=== PATIENT | male | born 1940 | race Caucasian/White ===

== ENCOUNTER 2018-12-19 19:08 | Inpatient (IN) | payer MEDICARE ==
[2018-12-19] MEDS ORDERED: Sodium Chloride 0.9% 1000 ML 1,000 ML IV STA (19:50)
[2018-12-19] MEDS ORDERED: Sodium Chloride 0.9% 1000 ML 1,000 ML ONE ×2 (19:53→21:03)
--- NOTE | 2018-12-19 19:54 | ERPHSYRPT ---
- History of Present Illness Time Seen by Provider: 12/19/18 19:47 Source: patient Exam Limitations: no limitations Patient Subjective Stated Complaint: pt states he has had malaria since the early 70's and has a flare up aboput twice a year. states he has been chilling and vomiting all day yesterday and today. Triage Nursing Assessment: pt alert and oriented, answers questions approp. pt ambulate from wheelchair to stretecher with assist of 1. respirations nonlabored with lungs cta. skin warm and dry at this time. Physician History: 78-year-old white male who states he has a history of malaria in the 70s and has intermittent flareups, patient arrives with complaint of chilling vomiting symptoms since 3 days he states he aches all over feels that he has a fever at home. Past medical history includes arrhythmia, high blood pressure, prostate problems , malaria in 1972 Past surgical history includes cholecystectomy Timing/Duration: day(s) Severity: moderate (33 days) Modifying Factors: Improves With: nothing Associated Symptoms: nausea, vomiting, chills, fever, malaise, weakness, No abdominal pain, No shortness of breath, No heartburn, No diaphoresis, No cough, No chest pain, No headaches, No loss of appetite, No rash, No syncope, No seizure Allergies/Adverse Reactions: NKA Allergy (Verified 12/19/18 19:27) Home Medications: Blood Presure Med 12/19/18 [History] Hx Tetanus, Diphtheria Vaccination/Date Given: No Hx Influenza Vaccination/Date Given: No Hx Pneumococcal Vaccination/Date Given: No Immunizations Up to Date: No - Review of Systems Constitutional: Fever, Chills, Malaise, Weakness, No Fatigue, No Lethargy, No Night Sweats, No Weight Loss Eyes: No Symptoms Ears, Nose, & Throat: No Symptoms Respiratory: No Cough, No Dyspnea Cardiac: No Chest Pain, No Edema, No Syncope Abdominal/Gastrointestinal: Nausea, Vomiting, No Abdominal Pain, No Diarrhea, No Constipation, No Hematemesis, No Hematochezia, No Melena, No Dysphagia, No Appetite Changes Genitourinary Symptoms: No Dysuria Musculoskeletal: Myalgias, No Back Pain, No Neck Pain Skin: No Rash Neurological: No Dizziness, No Focal Weakness, No Sensory Changes Psychological: No Symptoms Endocrine: No Symptoms All Other Systems: Reviewed and Negative - Past Medical History Pertinent Past Medical History: Yes Neurological History: No Pertinent History ENT History: No Pertinent History Cardiac History: Arrhythmia, Hypertension Respiratory History: No Pertinent History Endocrine Medical History: No Pertinent History Musculoskeletal History: No Pertinent History GI Medical History: No Pertinent History History: No Pertinent History Psycho-Social History: No Pertinent History Male Reproductive Disorders: Prostate Problems Other Medical History: Pt states he had malaria in 1972, hx of a fib- no longer on blood thinner - Past Surgical History Past Surgical History: Yes Gastrointestinal: Cholecystectomy Other Surgical History: 3 surgeries for gallbladder removal - Social History Smoking Status: Never smoker Exposure to second hand smoke: No Drug Use: none Patient Lives Alone: No - Nursing Vital Signs Nursing Vital Signs: Initial Vital Signs Temperature 98.7 F 12/19/18 19:09 Pulse Rate 78 12/19/18 19:09 Respiratory Rate 18 12/19/18 19:09 Blood Pressure 197/109 12/19/18 19:09 O2 Sat by Pulse Oximetry 96 12/19/18 19:09 Pain Scale Pain Intensity 5 - Physical Exam General Appearance: mild distress, alert Eye Exam: PERRL/EOMI, eyes nml inspection Ears, Nose, Throat Exam: normal ENT inspection, TMs normal, pharynx normal, moist mucous membranes Neck Exam: normal inspection, non-tender, supple, full range of motion Respiratory Exam: normal breath sounds, lungs clear, No respiratory distress Cardiovascular Exam: regular rate/rhythm, normal heart sounds, normal peripheral pulses, capillary refill <2 sec Gastrointestinal/Abdomen Exam: soft, normal bowel sounds, No tenderness, No mass Back Exam: normal inspection, normal range of motion, No CVA tenderness, No vertebral tenderness Extremity Exam: normal inspection, normal range of motion, pelvis stable Neurologic Exam: alert, oriented x 3, cooperative, 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, normal mood/affect, nml cerebellar function, nml station & gait, sensation nml, No motor deficits Skin Exam: normal color, warm, dry, No rash Lymphatic Exam: No adenopathy SpO2 Interpretation: normal (96%) SpO2: 96 - Course Nursing assessment & vital signs reviewed: Yes EKG Interpreted by Me: RATE (77 bpm), A-fib, NORMAL AXIS, Other (EKG: Atrial fibrillation, 77 beats per minute, normal axis,, no acute ST or T wave changes, compared to April 26, 2016) - Radiology Exams Right Chest X-ray Interpretation: Interpreted by me (right lower lobe infiltrate) Ordered Tests: Active Orders 24 hr Category Date Time Status EKG-ER Only STAT Care 12/19/18 19:50 Active IV Insertion STAT Care 12/19/18 19:50 Active CHEST 1 VIEW (PORTABLE) Stat Exams 12/19/18 19:51 Taken AMYLASE Stat Lab 12/19/18 20:00 Completed BLOOD CULTURE Stat Lab 12/19/18 20:10 Received CBC W DIFF Stat Lab 12/19/18 20:00 Completed CMP Stat Lab 12/19/18 20:00 Completed CULTURE,URINE Stat Lab 12/19/18 21:07 Received LIPASE Stat Lab 12/19/18 20:00 Completed Lactic Acid Stat Lab 12/19/18 20:20 Completed TROPONIN Q3H Lab 12/19/18 20:00 Completed TROPONIN Q3H Lab 12/19/18 23:00 Ordered TROPONIN Q3H Lab 12/20/18 02:00 Ordered TROPONIN Q3H Lab 12/20/18 05:00 Ordered TROPONIN Q3H Lab 12/20/18 08:00 Ordered UA W/RFX UR CULTURE Stat Lab 12/19/18 21:07 Completed Medication Summary Generic Name Dose Route Start Last Admin Trade Name Freq PRN Reason Stop Dose Admin Sodium Chloride 1,000 mls @ 100 mls/hr 12/19/18 21:15 12/19/18 21:08 Sodium Chloride 0.9% 1000 Ml IV 01/18/19 21:14 100 mls/hr .Q10H JOEY Administration Ceftriaxone Sodium/Dextrose 1 g in 50 mls @ 100 mls/hr 12/19/18 22:17 Rocephin 1 Gm-D5w 50 Ml Bag IV 12/19/18 22:46 STAT STA Discontinued Medications Generic Name Dose Route Start Last Admin Trade Name Freq PRN Reason Stop Dose Admin Sodium Chloride 1,000 mls @ 999 mls/hr 12/19/18 19:50 12/19/18 21:06 Sodium Chloride 0.9% 1000 Ml IV 12/19/18 20:50 Infused .Q1H1M STA Infusion Sodium Chloride Confirm 12/19/18 19:53 Sodium Chloride 0.9% 1000 Ml Administered 12/19/18 19:54 Dose 1,000 mls @ ud .ROUTE .STK-MED ONE Ceftriaxone Sodium/Dextrose Confirm 12/19/18 22:39 Rocephin 1 Gm-D5w 50 Ml Bag Administered 12/19/18 22:40 Dose 1 g in 50 mls @ ud IV .STK-MED ONE Ondansetron HCl 4 mg 12/19/18 20:01 12/19/18 20:03 Zofran 4 Mg/2 Ml Vial IV 12/19/18 20:02 4 mg STAT ONE Administration Ondansetron HCl Confirm 12/19/18 20:00 Zofran 4 Mg/2 Ml Vial Administered 12/19/18 20:01 Dose 4 mg .ROUTE .STK-MED ONE Lab/Rad Data: Laboratory Result Diagrams 12/19/18 20:00 12/19/18 20:00 Laboratory Results 12/19/18 12/19/18 12/19/18 Range/Units 21:07 20:20 20:00 WBC (4.0-10.5) K/mm3 RBC (4.1-5.6) M/mm3 Hgb (12.5-18.0) gm/dl Hct (42-50) % MCV (78-100) fl MCH (26-32) pg MCHC (32-36) g/dl RDW (11.5-14.0) % Plt Count (150-450) K/mm3 MPV (6-9.5) fl Gran % (36.0-66.0) % Eos # (Auto) (0-0.5) Absolute Lymphs (auto) (1.0-4.6) Absolute Monos (auto) (0.0-1.3) Lymphocytes % (24.0-44.0) % Monocytes % (0.0-12.0) % Eosinophils % (0.00-5.0) % Basophils % (0.0-0.4) % Absolute Granulocytes (1.4-6.9) Basophils # (0-0.4) Sodium (137-145) mmol/L Potassium (3.5-5.1) mmol/L Chloride (98-107) mmol/L Carbon Dioxide (22-30) mmol/L Anion Gap (5-15) MEQ/L BUN (9-20) mg/dL Creatinine (0.66-1.25) mg/dL Estimated GFR ML/MIN Glucose (74-106) mg/dL Lactic Acid 1.6 (0.4-2.0) Calcium (8.4-10.2) mg/dL Total Bilirubin (0.2-1.3) mg/dL AST (17-59) U/L ALT (0-50) U/L Alkaline Phosphatase (38-126) U/L Troponin I 0.013 (0.000-0.034) ng/mL Serum Total Protein (6.3-8.2) g/dL Albumin (3.5-5.0) g/dL Amylase (30-110) U/L Lipase (23-300) U/L Urine Color RED (YELLOW) Urine Appearance CLOUDY (CLEAR) Urine pH 6.0 (5-6) Ur Specific [place] 1.019 (1.005-1.025) Urine Protein 100 (Negative) Urine Ketones NEGATIVE (NEGATIVE) Urine Blood LARGE (0-5) Surendra/ul Urine Nitrite NEGATIVE (NEGATIVE) Urine Bilirubin NEGATIVE (NEGATIVE) Urine Urobilinogen NEGATIVE (0-1) mg/dL Ur Leukocyte Esterase NEGATIVE (NEGATIVE) Urine WBC (Auto) 0-2 (0-5) /HPF Urine RBC (Auto) >101 (0-2) /HPF U Epithel Cells (Auto) NONE (FEW) /HPF Urine Bacteria (Auto) NONE SEEN (NEGATIVE) /HPF Urine Culture Reflexed YES (NO) Urine Glucose 50 (NEGATIVE) mg/dL 12/19/18 12/19/18 Range/Units 20:00 20:00 WBC 19.6 H (4.0-10.5) K/mm3 RBC 5.56 (4.1-5.6) M/mm3 Hgb 18.0 (12.5-18.0) gm/dl Hct 51.7 H (42-50) % MCV 93.0 (78-100) fl MCH 32.4 H (26-32) pg MCHC 34.8 (32-36) g/dl RDW 14.4 H (11.5-14.0) % Plt Count 258 (150-450) K/mm3 MPV 9.8 H (6-9.5) fl Gran % 83.5 H (36.0-66.0) % Eos # (Auto) 0.01 (0-0.5) Absolute Lymphs (auto) 1.54 (1.0-4.6) Absolute Monos (auto) 1.64 H (0.0-1.3) Lymphocytes % 7.8 L (24.0-44.0) % Monocytes % 8.4 (0.0-12.0) % Eosinophils % 0.1 (0.00-5.0) % Basophils % 0.2 (0.0-0.4) % Absolute Granulocytes 16.41 H (1.4-6.9) Basophils # 0.03 (0-0.4) Sodium 135 L (137-145) mmol/L Potassium 3.5 (3.5-5.1) mmol/L Chloride 102 (98-107) mmol/L Carbon Dioxide 25 (22-30) mmol/L Anion Gap 12.1 (5-15) MEQ/L BUN 15 (9-20) mg/dL Creatinine 1.08 (0.66-1.25) mg/dL Estimated GFR > 60.0 ML/MIN Glucose 128 H (74-106) mg/dL Lactic Acid (0.4-2.0) Calcium 8.7 (8.4-10.2) mg/dL Total Bilirubin 1.80 H (0.2-1.3) mg/dL AST 24 (17-59) U/L ALT 18 (0-50) U/L Alkaline Phosphatase 91 (38-126) U/L Troponin I (0.000-0.034) ng/mL Serum Total Protein 8.0 (6.3-8.2) g/dL Albumin 4.2 (3.5-5.0) g/dL Amylase 67 (30-110) U/L Lipase 56 (23-300) U/L Urine Color (YELLOW) Urine Appearance (CLEAR) Urine pH (5-6) Ur Specific [place] (1.005-1.025) Urine Protein (Negative) Urine Ketones (NEGATIVE) Urine Blood (0-5) Surendra/ul Urine Nitrite (NEGATIVE) Urine Bilirubin (NEGATIVE) Urine Urobilinogen (0-1) mg/dL Ur Leukocyte Esterase (NEGATIVE) Urine WBC (Auto) (0-5) /HPF Urine RBC (Auto) (0-2) /HPF U Epithel Cells (Auto) (FEW) /HPF Urine Bacteria (Auto) (NEGATIVE) /HPF Urine Culture Reflexed (NO) Urine Glucose (NEGATIVE) mg/dL - Progress Progress: improved Progress Note: 12/19/18 22:42 Patient with a right lower lobe infiltrate on chest x-ray. Patient with a white count of 19.6 hemoglobin 18.0 hematocrit 51.7 platelets 258 chemistry essentially normal troponin is 0.013 urinalysis specific gravity 1.019 greater than 101 red cells per high-power field. Lactate is within normal limits I have ordered 1 L of normal saline. . I've also ordered 1 g of Rocephin IV. I have placed an order for strep test on this patient I discussed the patient's case with Dr. Alcaraz Will admit patient to observation. Diagnosis chills, right lower lobe pneumonia, hematuria. . - Departure Departure Disposition: Observation Clinical Impression: Chills Right lower lobe pneumonia Qualifiers: Pneumonia type: due to unspecified organism Qualified Code(s): J18.1 - Lobar pneumonia, unspecified organism Hematuria Qualifiers: Hematuria type: gross Qualified Code(s): R31.0 - Gross hematuria Condition: Fair Critical Care Time: No Referrals: ANGELITA MEHTA [Primary Care Provider] -
[2018-12-19] MEDS ORDERED: Zofran 4 MG/2 ML VIAL ONE (20:00)
[2018-12-19] MEDS ORDERED: Zofran 4 MG/2 ML VIAL IV ONE (20:01)
[2018-12-19 20:38] LABS: ALBUMIN 4.2 g/dL (3.5-5.0); ALKALINE PHOSPHATASE 91 U/L (38-126); AMYLASE 67 U/L (30-110); ANION GAP 12.1 MEQ/L (5-15); BLOOD UREA NITROGEN 15 mg/dL (9-20); CHLORIDE 102 mmol/L (98-107); Calcium 8.7 mg/dL (8.4-10.2); Carbon Dioxide 25 mmol/L (22-30); Creatinine 1 1.08 mg/dL (0.66-1.25); Glucose 128 mg/dL (74-106); LIPASE 56 U/L (23-300); Potassium 3.5 mmol/L (3.5-5.1); SGOT/AST 24 U/L (17-59); SGPT/ALT 18 U/L (0-50); SODIUM 135 mmol/L (137-145)
[2018-12-19] MEDS ORDERED: Sodium Chloride 0.9% 1000 ML 1,000 ML IV SCH (21:15)
[2018-12-19 21:17] LABS: Appearance CLOUDY (CLEAR); Bilirubin NEGATIVE (NEGATIVE); Blood LARGE Ery/ul (0-5); Glucose 50 mg/dL (NEGATIVE); Ketones NEGATIVE (NEGATIVE); Leukocyte Esterase NEGATIVE (NEGATIVE); Nitrite NEGATIVE (NEGATIVE); Protein,Urine Dip 100 (Negative); Specific Gravity 1.019 (1.005-1.025); Urobilinogen NEGATIVE mg/dL (0-1); WBC 0-2 /HPF (0-5)
[2018-12-19 21:19] LABS: RBC >101 /HPF (0-2)
[2018-12-19 21:20] LABS: Bacteria NONE SEEN /HPF (NEGATIVE)
[2018-12-19 21:21] LABS: BASOPHIL % 0.2 % (0.0-0.4); Basophil (Absolute #) 0.03 (0-0.4); Eosinophil % 0.1 % (0.00-5.0); Eosinophil (Absolute #) 0.01 (0-0.5); Granulocyte Absolute (ANC) 16.41 (1.4-6.9); Granulocytes % 83.5 % (36.0-66.0); Hematocrit 51.7 % (42-50); Lymphocyte (Absolute #) 1.54 (1.0-4.6); Lymphocytes % 7.8 % (24.0-44.0); Mean Corpuscular Hemoglobin 32.4 pg (26-32); Mean Corpuscular Hgb Concent. 34.8 g/dl (32-36); Mean Platelet Volume 9.8 fl (6-9.5); Monocyte (Absolute #) 1.64 (0.0-1.3); Monocytes % 8.4 % (0.0-12.0); Platelet Count 258 K/mm3 (150-450); Red Blood Count 5.56 M/mm3 (4.1-5.6); Red Cell Distribution Width 14.4 % (11.5-14.0); White Blood Count 19.6 K/mm3 (4.0-10.5)
[2018-12-19] MEDS ORDERED: ROCEPHIN 1 Gm-D5w 50 ml Bag** 1 G/50 ML IVPB IV STA (22:17)
[2018-12-19] MEDS ORDERED: ROCEPHIN 1 Gm-D5w 50 ml Bag** 1 G/50 ML IVPB IV ONE (22:39)
[2018-12-19 23:42] LABS: INR 1.29 (0.8-3.0); PROTIME 14.6 SECONDS (8.83-12.87)
[2018-12-19 23:45] LABS: PTT 36.9 SECONDS (24.1-36.1)
[2018-12-20] MEDS ORDERED: Zofran 4 MG/2 ML VIAL IV PRN (00:39)
[2018-12-20] MEDS ORDERED: Lopressor 50 MG PO ONE (01:50)
[2018-12-20] MEDS ORDERED: Lopressor 50 MG ONE (01:54)
[2018-12-20 06:11] LABS: BASOPHIL % 0.2 % (0.0-0.4); Basophil (Absolute #) 0.03 (0-0.4); Eosinophil % 0.2 % (0.00-5.0); Eosinophil (Absolute #) 0.03 (0-0.5); Granulocyte Absolute (ANC) 14.79 (1.4-6.9); Hematocrit 49.6 % (42-50); Lymphocyte (Absolute #) 1.89 (1.0-4.6); Lymphocytes % 10.2 % (24.0-44.0); Mean Cell Volume 93.1 fl (78-100); Mean Corpuscular Hemoglobin 31.9 pg (26-32); Mean Corpuscular Hgb Concent. 34.3 g/dl (32-36); Monocyte (Absolute #) 1.73 (0.0-1.3); Monocytes % 9.4 % (0.0-12.0); Platelet Count 250 K/mm3 (150-450); Red Blood Count 5.33 M/mm3 (4.1-5.6); Red Cell Distribution Width 14.4 % (11.5-14.0); White Blood Count 18.5 K/mm3 (4.0-10.5)
[2018-12-20 06:26] LABS: ALBUMIN 3.9 g/dL (3.5-5.0); ALKALINE PHOSPHATASE 83 U/L (38-126); ANION GAP 15.2 MEQ/L (5-15); BLOOD UREA NITROGEN 15 mg/dL (9-20); CHLORIDE 104 mmol/L (98-107); Calcium 8.3 mg/dL (8.4-10.2); Carbon Dioxide 22 mmol/L (22-30); Creatinine 1 1.04 mg/dL (0.66-1.25); Glucose 124 mg/dL (74-106); Potassium 3.7 mmol/L (3.5-5.1); SGOT/AST 26 U/L (17-59); SGPT/ALT 21 U/L (0-50); SODIUM 137 mmol/L (137-145); Total Protein 7.6 g/dL (6.3-8.2)
[2018-12-20] MEDS ORDERED: TYLENOL 325 MG PO PRN (06:42)
[2018-12-20 07:23] LABS: Slide Review 1 YES
--- NOTE | 2018-12-20 08:47 | XRAY ---
Indication: Weakness and chills. Comparison: October 14, 2013. Portable chest demonstrates new right infrahilar infiltrate versus atelectasis with stable lingular Iressa/scarring. Remaining lungs clear. Heart is borderline enlarged. Bony thorax intact with mild degenerative changes. Impression: New right infrahilar infiltrate/atelectasis. Correlate clinically.
[2018-12-20] MEDS ORDERED: Zithromax 500 MG/ 250 ML NaCl Premix 500 MG/250 ML IVPB IV SCH (10:00)
[2018-12-20] MEDS: hydroDIURIL 25 MG PO SCH (11:34)
[2018-12-20] MEDS: NORVASC 5 MG PO SCH (11:34)
[2018-12-20] MEDS: Zestril 20 MG PO SCH (11:34)
--- NOTE | 2018-12-20 12:59 | PCM.HP ---
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 - Review of Systems Constitutional: No Fever, No Chills Eyes: No Symptoms Ears, Nose, & Throat: No Symptoms Respiratory: Cough, Orthopnea, Short Of Breath, Wheezing Cardiac: No Chest Pain, No Edema, No Syncope Abdominal/Gastrointestinal: No Abdominal Pain, No Nausea, No Vomiting, No Diarrhea Genitourinary Symptoms: No Dysuria Musculoskeletal: No Back Pain, No Neck Pain Skin: No Rash Neurological: No Dizziness, No Focal Weakness, No Sensory Changes Psychological: No Symptoms Endocrine: No Symptoms Hematologic/Lymphatic: No Symptoms Immunological/Allergic: No Symptoms Medications & Allergies Home Medications: Home Medication List Amlodipine Besylate 5 mg [Norvasc 5 mg] 10 mg PO DAILY 12/20/18 [History Confirmed 12/20/18] Hydrochlorothiazide 12.5 mg PO DAILY 12/20/18 [History Confirmed 12/20/18] Lisinopril 20 mg [Zestril 20 MG] 40 mg PO DAILY 12/20/18 [History Confirmed 12/20/18] Allergies/Adverse Reactions: Allergies Allergy/AdvReac Type Severity Reaction Status Date / Time NKA Allergy Verified 12/19/18 19:27 - Past Medical History Past Medical History: Yes Neurological History: No Pertinent History ENT History: No Pertinent History Cardiac History: Arrhythmia, Hypertension Respiratory History: No Pertinent History Endocrine Medical History: No Pertinent History Musculoskelatal History: No Pertinent History GI Medical History: No Pertinent History History: No Pertinent History Pyscho-Social History: No Pertinent History Male Reproductive Disorders: Prostate Problems Comment: Pt states he had malaria in 1972, hx of a fib- no longer on blood thinner - Past Surgical History Past Surgical History: Yes GI Surgical History: Cholecystectomy Other Surgical History: 3 surgeries for gallbladder removal - Social History Smoking Status: Never smoker Exposure to second hand smoke: No Alcohol: None Drug Use: none - Physical Exam Vital Signs: Vital Signs - 24 hr Temp Pulse Resp BP Pulse Ox 12/20/18 11:47 97.6 F 60 20 163/70 94 L 12/20/18 09:59 98.4 F 12/20/18 07:20 101.4 F 66 18 180/95 94 L 12/20/18 07:16 95 12/20/18 03:59 98.0 F 66 20 176/98 94 L 12/20/18 01:23 100.4 F 82 19 202/109 93 L 12/20/18 00:39 91 L 12/19/18 23:50 74 18 168/94 98 12/19/18 23:40 79 18 165/94 95 12/19/18 22:44 96 12/19/18 22:40 85 18 168/94 99 12/19/18 21:40 75 183/111 12/19/18 20:48 73 16 182/99 94 L 12/19/18 19:58 61 18 206/105 92 L 12/19/18 19:09 98.7 F 78 18 197/109 96 General Appearance: no apparent distress, alert Neurologic Exam: alert, oriented x 3, cooperative, normal mood/affect, nml cerebellar function, nml station & gait, sensation nml, No motor deficits Eye Exam: PERRL/EOMI, eyes nml inspection Ears, Nose, Throat Exam: normal ENT inspection, TMs normal, pharynx normal, moist mucous membranes Neck Exam: normal inspection, non-tender, supple, full range of motion Respiratory Exam: normal breath sounds, diminished breath sounds, prolonged expirations, crackles/rales, rhonchi, wheezing, No respiratory distress Cardiovascular Exam: regular rate/rhythm, normal heart sounds, normal peripheral pulses Gastrointestinal/Abdomen Exam: soft, normal bowel sounds, No tenderness, No mass Back Exam: normal inspection, normal range of motion, No CVA tenderness, No vertebral tenderness Extremity Exam: normal inspection, normal range of motion, pelvis stable Skin Exam: normal color, warm, dry, No rash Lymphatic Exam: No adenopathy Results - Labs Lab/Micro Results: Lab Results-Last 24 Hours 12/19/18 12/19/18 12/19/18 Range/Units 20:00 20:00 20:00 WBC 19.6 H (4.0-10.5) K/mm3 RBC 5.56 (4.1-5.6) M/mm3 Hgb 18.0 (12.5-18.0) gm/dl Hct 51.7 H (42-50) % MCV 93.0 (78-100) fl MCH 32.4 H (26-32) pg MCHC 34.8 (32-36) g/dl RDW 14.4 H (11.5-14.0) % Plt Count 258 (150-450) K/mm3 MPV 9.8 H (6-9.5) fl Gran % 83.5 H (36.0-66.0) % Eos # (Auto) 0.01 (0-0.5) Absolute Lymphs (auto) 1.54 (1.0-4.6) Absolute Monos (auto) 1.64 H (0.0-1.3) Lymphocytes % 7.8 L (24.0-44.0) % Monocytes % 8.4 (0.0-12.0) % Eosinophils % 0.1 (0.00-5.0) % Basophils % 0.2 (0.0-0.4) % Absolute Granulocytes 16.41 H (1.4-6.9) Basophils # 0.03 (0-0.4) PT (8.83-12.87) SECONDS INR (0.8-3.0) APTT (24.1-36.1) SECONDS Sodium 135 L (137-145) mmol/L Potassium 3.5 (3.5-5.1) mmol/L Chloride 102 (98-107) mmol/L Carbon Dioxide 25 (22-30) mmol/L Anion Gap 12.1 (5-15) MEQ/L BUN 15 (9-20) mg/dL Creatinine 1.08 (0.66-1.25) mg/dL Estimated GFR > 60.0 ML/MIN Glucose 128 H (74-106) mg/dL Lactic Acid (0.4-2.0) Calcium 8.7 (8.4-10.2) mg/dL Total Bilirubin 1.80 H (0.2-1.3) mg/dL AST 24 (17-59) U/L ALT 18 (0-50) U/L Alkaline Phosphatase 91 (38-126) U/L Troponin I 0.013 (0.000-0.034) ng/mL Serum Total Protein 8.0 (6.3-8.2) g/dL Albumin 4.2 (3.5-5.0) g/dL Amylase 67 (30-110) U/L Lipase 56 (23-300) U/L Urine Color (YELLOW) Urine Appearance (CLEAR) Urine pH (5-6) Ur Specific Fackler (1.005-1.025) Urine Protein (Negative) Urine Ketones (NEGATIVE) Urine Blood (0-5) Surendra/ul Urine Nitrite (NEGATIVE) Urine Bilirubin (NEGATIVE) Urine Urobilinogen (0-1) mg/dL Ur Leukocyte Esterase (NEGATIVE) Urine WBC (Auto) (0-5) /HPF Urine RBC (Auto) (0-2) /HPF U Epithel Cells (Auto) (FEW) /HPF Urine Bacteria (Auto) (NEGATIVE) /HPF Urine Culture Reflexed (NO) Urine Glucose (NEGATIVE) mg/dL Group A Strep Antibody (NEGATIVE) Slides for Path Review 12/19/18 12/19/18 12/19/18 Range/Units 20:00 20:20 21:07 WBC (4.0-10.5) K/mm3 RBC (4.1-5.6) M/mm3 Hgb (12.5-18.0) gm/dl Hct (42-50) % MCV (78-100) fl MCH (26-32) pg MCHC (32-36) g/dl RDW (11.5-14.0) % Plt Count (150-450) K/mm3 MPV (6-9.5) fl Gran % (36.0-66.0) % Eos # (Auto) (0-0.5) Absolute Lymphs (auto) (1.0-4.6) Absolute Monos (auto) (0.0-1.3) Lymphocytes % (24.0-44.0) % Monocytes % (0.0-12.0) % Eosinophils % (0.00-5.0) % Basophils % (0.0-0.4) % Absolute Granulocytes (1.4-6.9) Basophils # (0-0.4) PT 14.6 H (8.83-12.87) SECONDS INR 1.29 (0.8-3.0) APTT 36.9 H (24.1-36.1) SECONDS Sodium (137-145) mmol/L Potassium (3.5-5.1) mmol/L Chloride (98-107) mmol/L Carbon Dioxide (22-30) mmol/L Anion Gap (5-15) MEQ/L BUN (9-20) mg/dL Creatinine (0.66-1.25) mg/dL Estimated GFR ML/MIN Glucose (74-106) mg/dL Lactic Acid 1.6 (0.4-2.0) Calcium (8.4-10.2) mg/dL Total Bilirubin (0.2-1.3) mg/dL AST (17-59) U/L ALT (0-50) U/L Alkaline Phosphatase (38-126) U/L Troponin I (0.000-0.034) ng/mL Serum Total Protein (6.3-8.2) g/dL Albumin (3.5-5.0) g/dL Amylase (30-110) U/L Lipase (23-300) U/L Urine Color RED (YELLOW) Urine Appearance CLOUDY (CLEAR) Urine pH 6.0 (5-6) Ur Specific Fackler 1.019 (1.005-1.025) Urine Protein 100 (Negative) Urine Ketones NEGATIVE (NEGATIVE) Urine Blood LARGE (0-5) Surendra/ul Urine Nitrite NEGATIVE (NEGATIVE) Urine Bilirubin NEGATIVE (NEGATIVE) Urine Urobilinogen NEGATIVE (0-1) mg/dL Ur Leukocyte Esterase NEGATIVE (NEGATIVE) Urine WBC (Auto) 0-2 (0-5) /HPF Urine RBC (Auto) >101 (0-2) /HPF U Epithel Cells (Auto) NONE (FEW) /HPF Urine Bacteria (Auto) NONE SEEN (NEGATIVE) /HPF Urine Culture Reflexed YES (NO) Urine Glucose 50 (NEGATIVE) mg/dL Group A Strep Antibody (NEGATIVE) Slides for Path Review 12/19/18 12/19/18 12/20/18 Range/Units 22:15 23:26 02:40 WBC (4.0-10.5) K/mm3 RBC (4.1-5.6) M/mm3 Hgb (12.5-18.0) gm/dl Hct (42-50) % MCV (78-100) fl MCH (26-32) pg MCHC (32-36) g/dl RDW (11.5-14.0) % Plt Count (150-450) K/mm3 MPV (6-9.5) fl Gran % (36.0-66.0) % Eos # (Auto) (0-0.5) Absolute Lymphs (auto) (1.0-4.6) Absolute Monos (auto) (0.0-1.3) Lymphocytes % (24.0-44.0) % Monocytes % (0.0-12.0) % Eosinophils % (0.00-5.0) % Basophils % (0.0-0.4) % Absolute Granulocytes (1.4-6.9) Basophils # (0-0.4) PT (8.83-12.87) SECONDS INR (0.8-3.0) APTT (24.1-36.1) SECONDS Sodium (137-145) mmol/L Potassium (3.5-5.1) mmol/L Chloride (98-107) mmol/L Carbon Dioxide (22-30) mmol/L Anion Gap (5-15) MEQ/L BUN (9-20) mg/dL Creatinine (0.66-1.25) mg/dL Estimated GFR ML/MIN Glucose (74-106) mg/dL Lactic Acid (0.4-2.0) Calcium (8.4-10.2) mg/dL Total Bilirubin (0.2-1.3) mg/dL AST (17-59) U/L ALT (0-50) U/L Alkaline Phosphatase (38-126) U/L Troponin I 0.013 0.015 (0.000-0.034) ng/mL Serum Total Protein (6.3-8.2) g/dL Albumin (3.5-5.0) g/dL Amylase (30-110) U/L Lipase (23-300) U/L Urine Color (YELLOW) Urine Appearance (CLEAR) Urine pH (5-6) Ur Specific Fackler (1.005-1.025) Urine Protein (Negative) Urine Ketones (NEGATIVE) Urine Blood (0-5) Surendra/ul Urine Nitrite (NEGATIVE) Urine Bilirubin (NEGATIVE) Urine Urobilinogen (0-1) mg/dL Ur Leukocyte Esterase (NEGATIVE) Urine WBC (Auto) (0-5) /HPF Urine RBC (Auto) (0-2) /HPF U Epithel Cells (Auto) (FEW) /HPF Urine Bacteria (Auto) (NEGATIVE) /HPF Urine Culture Reflexed (NO) Urine Glucose (NEGATIVE) mg/dL Group A Strep Antibody NEGATIVE (NEGATIVE) Slides for Path Review 12/20/18 12/20/18 12/20/18 Range/Units 05:35 05:35 05:35 WBC 18.5 H (4.0-10.5) K/mm3 RBC 5.33 (4.1-5.6) M/mm3 Hgb 17.0 (12.5-18.0) gm/dl Hct 49.6 (42-50) % MCV 93.1 (78-100) fl MCH 31.9 (26-32) pg MCHC 34.3 (32-36) g/dl RDW 14.4 H (11.5-14.0) % Plt Count 250 (150-450) K/mm3 MPV 10.0 H (6-9.5) fl Gran % 80.0 H (36.0-66.0) % Eos # (Auto) 0.03 (0-0.5) Absolute Lymphs (auto) 1.89 (1.0-4.6) Absolute Monos (auto) 1.73 H (0.0-1.3) Lymphocytes % 10.2 L (24.0-44.0) % Monocytes % 9.4 (0.0-12.0) % Eosinophils % 0.2 (0.00-5.0) % Basophils % 0.2 (0.0-0.4) % Absolute Granulocytes 14.79 H (1.4-6.9) Basophils # 0.03 (0-0.4) PT (8.83-12.87) SECONDS INR (0.8-3.0) APTT (24.1-36.1) SECONDS Sodium 137 (137-145) mmol/L Potassium 3.7 (3.5-5.1) mmol/L Chloride 104 (98-107) mmol/L Carbon Dioxide 22 (22-30) mmol/L Anion Gap 15.2 H (5-15) MEQ/L BUN 15 (9-20) mg/dL Creatinine 1.04 (0.66-1.25) mg/dL Estimated GFR > 60.0 ML/MIN Glucose 124 H (74-106) mg/dL Lactic Acid (0.4-2.0) Calcium 8.3 L (8.4-10.2) mg/dL Total Bilirubin 1.70 H (0.2-1.3) mg/dL AST 26 (17-59) U/L ALT 21 (0-50) U/L Alkaline Phosphatase 83 (38-126) U/L Troponin I 0.017 (0.000-0.034) ng/mL Serum Total Protein 7.6 (6.3-8.2) g/dL Albumin 3.9 (3.5-5.0) g/dL Amylase (30-110) U/L Lipase (23-300) U/L Urine Color (YELLOW) Urine Appearance (CLEAR) Urine pH (5-6) Ur Specific Fackler (1.005-1.025) Urine Protein (Negative) Urine Ketones (NEGATIVE) Urine Blood (0-5) Surendra/ul Urine Nitrite (NEGATIVE) Urine Bilirubin (NEGATIVE) Urine Urobilinogen (0-1) mg/dL Ur Leukocyte Esterase (NEGATIVE) Urine WBC (Auto) (0-5) /HPF Urine RBC (Auto) (0-2) /HPF U Epithel Cells (Auto) (FEW) /HPF Urine Bacteria (Auto) (NEGATIVE) /HPF Urine Culture Reflexed (NO) Urine Glucose (NEGATIVE) mg/dL Group A Strep Antibody (NEGATIVE) Slides for Path Review YES 12/20/18 Range/Units 07:58 WBC (4.0-10.5) K/mm3 RBC (4.1-5.6) M/mm3 Hgb (12.5-18.0) gm/dl Hct (42-50) % MCV (78-100) fl MCH (26-32) pg MCHC (32-36) g/dl RDW (11.5-14.0) % Plt Count (150-450) K/mm3 MPV (6-9.5) fl Gran % (36.0-66.0) % Eos # (Auto) (0-0.5) Absolute Lymphs (auto) (1.0-4.6) Absolute Monos (auto) (0.0-1.3) Lymphocytes % (24.0-44.0) % Monocytes % (0.0-12.0) % Eosinophils % (0.00-5.0) % Basophils % (0.0-0.4) % Absolute Granulocytes (1.4-6.9) Basophils # (0-0.4) PT (8.83-12.87) SECONDS INR (0.8-3.0) APTT (24.1-36.1) SECONDS Sodium (137-145) mmol/L Potassium (3.5-5.1) mmol/L Chloride (98-107) mmol/L Carbon Dioxide (22-30) mmol/L Anion Gap (5-15) MEQ/L BUN (9-20) mg/dL Creatinine (0.66-1.25) mg/dL Estimated GFR ML/MIN Glucose (74-106) mg/dL Lactic Acid (0.4-2.0) Calcium (8.4-10.2) mg/dL Total Bilirubin (0.2-1.3) mg/dL AST (17-59) U/L ALT (0-50) U/L Alkaline Phosphatase (38-126) U/L Troponin I 0.017 (0.000-0.034) ng/mL Serum Total Protein (6.3-8.2) g/dL Albumin (3.5-5.0) g/dL Amylase (30-110) U/L Lipase (23-300) U/L Urine Color (YELLOW) Urine Appearance (CLEAR) Urine pH (5-6) Ur Specific Fackler (1.005-1.025) Urine Protein (Negative) Urine Ketones (NEGATIVE) Urine Blood (0-5) Surendra/ul Urine Nitrite (NEGATIVE) Urine Bilirubin (NEGATIVE) Urine Urobilinogen (0-1) mg/dL Ur Leukocyte Esterase (NEGATIVE) Urine WBC (Auto) (0-5) /HPF Urine RBC (Auto) (0-2) /HPF U Epithel Cells (Auto) (FEW) /HPF Urine Bacteria (Auto) (NEGATIVE) /HPF Urine Culture Reflexed (NO) Urine Glucose (NEGATIVE) mg/dL Group A Strep Antibody (NEGATIVE) Slides for Path Review - Radiology Impressions Radiology Exams & Impressions: Radiology Procedures Category Date Time Status CHEST 1 VIEW (PORTABLE) Stat Exams 12/19/18 19:51 Completed Assessment/Plan (1) Cardiomyopathy Current Visit: Yes Status: Acute Qualifiers: Cardiomyopathy type: non-obstructive hypertrophic Qualified Code(s): I42.2 - Other hypertrophic cardiomyopathy Code(s): I42.9 - CARDIOMYOPATHY, UNSPECIFIED (2) HTN (hypertension) Current Visit: Yes Status: Acute Qualifiers: Hypertension type: essential hypertension Qualified Code(s): I10 - Essential (primary) hypertension Code(s): I10 - ESSENTIAL (PRIMARY) HYPERTENSION (3) Prostate hyperplasia, benign localized, with urinary obstruction Current Visit: Yes Status: Acute Code(s): N40.1 - BENIGN PROSTATIC HYPERPLASIA WITH LOWER URINARY TRACT SYMP; N13.8 - OTHER OBSTRUCTIVE AND REFLUX UROPATHY (4) Hematuria Current Visit: Yes Status: Acute Qualifiers: Hematuria type: gross Qualified Code(s): R31.0 - Gross hematuria Code(s): R31.9 - HEMATURIA, UNSPECIFIED (5) Right lower lobe pneumonia Current Visit: Yes Status: Acute Qualifiers: Pneumonia type: due to unspecified organism Qualified Code(s): J18.1 - Lobar pneumonia, unspecified organism Code(s): J18.1 - LOBAR PNEUMONIA, UNSPECIFIED ORGANISM
--- NOTE | 2018-12-20 17:10 | XRAY ---
Indication: Pneumonia. Multiple contiguous axial images obtained through the chest using 80 cc of Isovue-370 contrast as ordered. Comparison: None Lungs demonstrates mild bilateral dependent atelectasis and minimal bibasilar fibrosis/scarring. Tiny calcified granuloma in the anterior medial left upper lobe, posterior right lower lobe, and posterior left lower lobe. No suspicious pulmonary mass, infiltrate, or effusion. Heart is not enlarged. Aorta is normal in course and caliber with minimal calcifications. A few tiny left perihilar calcified nodes. No pathologic mediastinal/hilar lymphadenopathy. Bony thorax intact with mild degenerative changes throughout the spine. CT abdomen reported separately. Impression: Dependent atelectasis, scattered fibrosis/scarring, and evidence for old granulomatous disease. Remaining CT chest with contrast exam is negative. CTDI 23.68
--- NOTE | 2018-12-20 17:26 | XRAY ---
Indication: Hematuria. Gallstones. Enlarged prostate gland. Multiple contiguous axial images obtained through the abdomen and pelvis using 80 cc of Isovue-370 contrast only. Comparison: October 14, 2013. CT chest reported separately. Noncontrasted stomach and bowel loops appear nonobstructed. Mild scattered colonic diverticulosis throughout. Interval cholecystectomy. No free fluid/air. Continued enlarging nodular prostate gland again impresses on the base of the urinary bladder more than before. Urinary bladder also demonstrates intraluminal nodularity/mass concerning for malignancy, primary bladder versus prostate invasive malignancy. Query extension into the distal left ureter. New 8 mm right upper pole cortical cyst and 6 mm left lobe hepatic cyst. Remaining liver, pancreas, spleen, adrenal glands, kidneys, and ureters appear unremarkable. Mild aortoiliac calcifications. No AAA or pathologic retroperitoneal lymphadenopathy. Osseous structures intact again with mild degenerative changes throughout the spine. No suspicious bony lesions. Impression: 1. Enlarging/nodular prostate gland impressing on the base of the bladder. Also posterior bladder wall nodularity/mass concerning for malignancy as detailed. 2. Incidental tiny right renal/hepatic cyst and colonic diverticulosis. 3. Remaining CT abdomen/pelvis with contrast exam is negative. CTDI 26.65
[2018-12-20 19:44] LABS: ANION GAP 11.2 MEQ/L (5-15); BLOOD UREA NITROGEN 17 mg/dL (9-20); CHLORIDE 102 mmol/L (98-107); Calcium 8.2 mg/dL (8.4-10.2); Carbon Dioxide 25 mmol/L (22-30); Creatinine 1 1.05 mg/dL (0.66-1.25); Glucose 140 mg/dL (74-106); MAGNESIUM 1.9 mg/dL (1.6-2.3); Potassium 3.4 mmol/L (3.5-5.1); SODIUM 134 mmol/L (137-145)
[2018-12-20] MEDS: Sodium Chloride 0.9% 1000 ML 1,000 ML IV SCH (20:13)
[2018-12-20] MEDS: Magnesium 1 Gm / 100 Ml D5W*** 100 ML IV SCH ×2 (20:13→20:43)
[2018-12-20] MEDS: POTASSIUM CHLORIDE 20 mEq IN WATER 100ML 20 MEQ/100 ML BAG IV SCH ×2 (21:27→23:25)
[2018-12-20] MEDS ORDERED: Flomax 0.4 MG ONE (21:37)
[2018-12-20] MEDS: Flomax 0.4 MG PO SCH (21:39)
[2018-12-21] MEDS: ROCEPHIN 1 Gm-D5w 50 ml Bag** 1 G/50 ML IVPB IV SCH ×2 (01:26→21:48)
[2018-12-21] MEDS: Zithromax 500 MG/ 250 ML NaCl Premix 500 MG/250 ML IVPB IV SCH ×2 (02:02→22:32)
[2018-12-21 04:25] LABS: ALBUMIN 3.6 g/dL (3.5-5.0); ALKALINE PHOSPHATASE 80 U/L (38-126); ANION GAP 10.5 MEQ/L (5-15); BLOOD UREA NITROGEN 16 mg/dL (9-20); CHLORIDE 104 mmol/L (98-107); Calcium 8.2 mg/dL (8.4-10.2); Carbon Dioxide 26 mmol/L (22-30); Creatinine 1 1.09 mg/dL (0.66-1.25); Glucose 124 mg/dL (74-106); Potassium 3.5 mmol/L (3.5-5.1); SGOT/AST 31 U/L (17-59); SGPT/ALT 22 U/L (0-50); SODIUM 137 mmol/L (137-145); Total Protein 7.1 g/dL (6.3-8.2)
[2018-12-21 04:36] LABS: Hematocrit 46.7 % (42-50); Hemoglobin 15.8 gm/dl (12.5-18.0); Mean Cell Volume 94.5 fl (78-100); Mean Corpuscular Hgb Concent. 33.8 g/dl (32-36); Mean Platelet Volume 10.1 fl (6-9.5); Platelet Count 212 K/mm3 (150-450); Red Blood Count 4.94 M/mm3 (4.1-5.6); Red Cell Distribution Width 14.5 % (11.5-14.0); White Blood Count 13.4 K/mm3 (4.0-10.5)
[2018-12-21 07:13] LABS: Prostate Specific Antigen 8.98 ng/mL (<=6.50)
[2018-12-21] MEDS: Sodium Chloride 0.9% 1000 ML 1,000 ML IV SCH ×2 (08:20→18:24)
[2018-12-21] MEDS: hydroDIURIL 25 MG PO SCH (08:28)
[2018-12-21] MEDS: NORVASC 5 MG PO SCH (08:28)
[2018-12-21] MEDS: Zestril 20 MG PO SCH (08:28)
[2018-12-21] MEDS: Flomax 0.4 MG PO SCH (08:30)
[2018-12-21] MEDS ORDERED: Klor Con 10 MEQ PO ONE (09:17)
[2018-12-21] MEDS ORDERED: POTASSIUM CHLORIDE 20 mEq IN WATER 100ML 20 MEQ/100 ML BAG IV ONE (09:17)
[2018-12-21] MEDS ORDERED: Klor Con 10 MEQ PO SCH (10:00)
[2018-12-21] MEDS ORDERED: NON-FORMULARY ITEM (Hydrochlorothiazide [Hydrochlorothiazide] 12.5 MG) PO SCH (10:00)
--- NOTE | 2018-12-21 14:50 | ECHO ---
DATE OF PROCEDURE: 12/20/2018 CLINICAL INFORMATION: Sinus arrhythmia. The M-mode 2D, and Doppler echocardiogram including color flow Doppler shows the left ventricle is dilated at 6.1 cm. There is no apical thrombus present. The septal wall thickness is increased at 2.0 cm. The left ventricular posterior wall thickness is 1.4 cm. There is normal contractility of the left ventricle with the ejection fraction being calculated at 58%. The right ventricle is normal. The left atrium is dilated at 4.7 cm. The interatrial septum is intact. The right atrium is grossly normal. The aortic valve opens well and is trileaflet. There is no aortic regurgitation present. The mitral valve is grossly normal. There is mild mitral regurgitation present. There is mild tricuspid regurgitation. The right ventricular systolic pressure is elevated at 32 mm of Mercury. The pulmonic valve is not well visualized. The aortic root is borderline dilated at 3.8 cm. There is no pericardial effusion present. IMPRESSION: 1) NORMAL CONTRACTILITY OF THE LEFT VENTRICLE. 2) SEVERE ASYMMETRIC LEFT VENTRICULAR HYPERTROPHY. 3) MILD LEFT ATRIAL DILATATION. 4) MILD MITRAL REGURGITATION. 5) MILD TRICUSPID REGURGITATION. 6) MILD PULMONARY HYPERTENSION. It should be noted that this was a limited study secondary to poor lung window.
--- NOTE | 2018-12-21 17:20 | PCM.NOTE ---
Date and Time: 12/21/181717 Subjective Assessment: doing ok - Review of Systems Constitutional: No Fever, No Chills Eyes: No Symptoms Ears, Nose, & Throat: No Symptoms Respiratory: Orthopnea, Short Of Breath, No Cough Cardiac: No Chest Pain, No Edema, No Syncope Abdominal/Gastrointestinal: No Abdominal Pain, No Nausea, No Vomiting, No Diarrhea Genitourinary Symptoms: No Dysuria Musculoskeletal: No Back Pain, No Neck Pain Skin: No Rash Neurological: No Dizziness, No Focal Weakness, No Sensory Changes Psychological: No Symptoms Endocrine: No Symptoms Hematologic/Lymphatic: No Symptoms Immunological/Allergic: No Symptoms Objective Exam General Appearance: no apparent distress, alert Neurologic Exam: alert, oriented x 3, cooperative, normal mood/affect, nml cerebellar function, sensation nml, No motor deficits Skin Exam: normal color, warm, dry Eye Exam: PERRL, EOMI, eyes nml inspection Ears, Nose, Throat Exam: normal ENT inspection, pharynx normal, moist mucous membranes Neck Exam: normal inspection, non-tender, supple, full range of motion Respiratory Exam: normal breath sounds, lungs clear, No respiratory distress Cardiovascular Exam: regular rate/rhythm, normal heart sounds Gastrointestinal/Abdomen Exam: soft, No tenderness, No mass Extremity Exam: normal inspection, normal range of motion Back Exam: normal inspection, normal range of motion, No CVA tenderness, No vertebral tenderness Male Genitalia Exam: deferred Rectal Exam: deferred OBJECTIVE DATA Vital Signs: Vital Signs - 24 hr Temp Pulse Resp BP Pulse Ox 12/21/18 15:56 97.9 F 77 20 164/88 96 12/21/18 12:29 98 F 76 20 148/91 95 12/21/18 07:30 98.1 F 82 22 158/86 94 L 12/21/18 06:38 93 L 12/21/18 03:00 97.9 F 76 19 169/95 95 12/20/18 23:00 99.1 F 71 20 176/95 96 12/20/18 19:40 97 12/20/18 19:16 99.0 F 75 20 179/96 99 Oxygen-Last 24 hours O2 Percentage 3 Liters = 32% O2 Percentage 3 Liters = 32% Pain Assessment - Last Documented Pain Intensity 4 Pain Scale Used 0-10 Pain Scale Intake and Output: Intake & Output 12/19/18 12/20/18 12/21/18 08/02/19 11:59 11:59 11:59 11:59 Intake Total 2238 4252 240 Output Total 100 1700 Balance 2138 2162 240 Weight 137.1 kg 140.3 kg Lab Results: Lab Results-Last 24 Hours 12/20/18 12/20/18 12/21/18 Range/Units 06:00 19:01 03:30 WBC (4.0-10.5) K/mm3 RBC (4.1-5.6) M/mm3 Hgb (12.5-18.0) gm/dl Hct (42-50) % MCV (78-100) fl MCH (26-32) pg MCHC (32-36) g/dl RDW (11.5-14.0) % Plt Count (150-450) K/mm3 MPV (6-9.5) fl Sodium 134 L (137-145) mmol/L Potassium 3.4 L (3.5-5.1) mmol/L Chloride 102 (98-107) mmol/L Carbon Dioxide 25 (22-30) mmol/L Anion Gap 11.2 (5-15) MEQ/L BUN 17 (9-20) mg/dL Creatinine 1.05 (0.66-1.25) mg/dL Estimated GFR > 60.0 ML/MIN Glucose 140 H (74-106) mg/dL Calcium 8.2 L (8.4-10.2) mg/dL Magnesium 1.9 2.3 (1.6-2.3) mg/dL Total Bilirubin (0.2-1.3) mg/dL AST (17-59) U/L ALT (0-50) U/L Alkaline Phosphatase (38-126) U/L NT-Pro-B Natriuret Pep (0-1800) pg/mL Serum Total Protein (6.3-8.2) g/dL Albumin (3.5-5.0) g/dL Prostate Specific Ag 8.98 H (<=6.50) ng/mL Free PSA 22 % TSH 3rd Generation 2.100 (0.47-4.68) mIU/L 12/21/18 12/21/18 12/21/18 Range/Units 03:51 03:51 05:00 WBC 13.4 H (4.0-10.5) K/mm3 RBC 4.94 (4.1-5.6) M/mm3 Hgb 15.8 (12.5-18.0) gm/dl Hct 46.7 (42-50) % MCV 94.5 (78-100) fl MCH 32.0 (26-32) pg MCHC 33.8 (32-36) g/dl RDW 14.5 H (11.5-14.0) % Plt Count 212 (150-450) K/mm3 MPV 10.1 H (6-9.5) fl Sodium 137 (137-145) mmol/L Potassium 3.5 (3.5-5.1) mmol/L Chloride 104 (98-107) mmol/L Carbon Dioxide 26 (22-30) mmol/L Anion Gap 10.5 (5-15) MEQ/L BUN 16 (9-20) mg/dL Creatinine 1.09 (0.66-1.25) mg/dL Estimated GFR > 60.0 ML/MIN Glucose 124 H (74-106) mg/dL Calcium 8.2 L (8.4-10.2) mg/dL Magnesium (1.6-2.3) mg/dL Total Bilirubin 0.70 (0.2-1.3) mg/dL AST 31 (17-59) U/L ALT 22 (0-50) U/L Alkaline Phosphatase 80 (38-126) U/L NT-Pro-B Natriuret Pep 1500 (0-1800) pg/mL Serum Total Protein 7.1 (6.3-8.2) g/dL Albumin 3.6 (3.5-5.0) g/dL Prostate Specific Ag (<=6.50) ng/mL Free PSA % TSH 3rd Generation (0.47-4.68) mIU/L 12/21/18 Range/Units 13:30 WBC (4.0-10.5) K/mm3 RBC (4.1-5.6) M/mm3 Hgb (12.5-18.0) gm/dl Hct (42-50) % MCV (78-100) fl MCH (26-32) pg MCHC (32-36) g/dl RDW (11.5-14.0) % Plt Count (150-450) K/mm3 MPV (6-9.5) fl Sodium (137-145) mmol/L Potassium 3.7 (3.5-5.1) mmol/L Chloride (98-107) mmol/L Carbon Dioxide (22-30) mmol/L Anion Gap (5-15) MEQ/L BUN (9-20) mg/dL Creatinine (0.66-1.25) mg/dL Estimated GFR ML/MIN Glucose (74-106) mg/dL Calcium (8.4-10.2) mg/dL Magnesium (1.6-2.3) mg/dL Total Bilirubin (0.2-1.3) mg/dL AST (17-59) U/L ALT (0-50) U/L Alkaline Phosphatase (38-126) U/L NT-Pro-B Natriuret Pep (0-1800) pg/mL Serum Total Protein (6.3-8.2) g/dL Albumin (3.5-5.0) g/dL Prostate Specific Ag (<=6.50) ng/mL Free PSA % TSH 3rd Generation (0.47-4.68) mIU/L Radiology Exams: Radiology Procedures Category Date Time Status ABDOMEN AND PELVIS W CONTRAST [CT] Urgent Exams 12/20/18 13:22 Completed CHEST 1 VIEW (PORTABLE) Stat Exams 12/19/18 19:51 Completed CHEST 2 VIEWS (PA AND LAT) Routine Exams 12/22/18 05:00 Ordered CHEST WITH CONTRAST [CT] Urgent Exams 12/20/18 13:18 Completed ECHO W/2D AND DOPPLER [US] Routine Exams 12/20/18 13:45 Draft Multi-Disciplinary Progress Notes: Multi-Disciplinary Progress Notes 12/21/18 15:59 Occupational Therapy Note by Jocelyn Cartagena Cancel orders for skilled Occupational Therapy Evaluation d/t patient not appropriate for OT at this time d/t medical co-morbidities. OTR coordinated with Physical Therapist who had already assessed patient and plan is to discharge tomorrow. Initialized on 12/21/18 15:59 - END OF NOTE Assessment/Plan (1) Cardiomyopathy Current Visit: Yes Status: Acute Qualifiers: Cardiomyopathy type: non-obstructive hypertrophic Qualified Code(s): I42.2 - Other hypertrophic cardiomyopathy Code(s): I42.9 - CARDIOMYOPATHY, UNSPECIFIED (2) HTN (hypertension) Current Visit: Yes Status: Acute Qualifiers: Hypertension type: essential hypertension Qualified Code(s): I10 - Essential (primary) hypertension Code(s): I10 - ESSENTIAL (PRIMARY) HYPERTENSION (3) Prostate hyperplasia, benign localized, with urinary obstruction Current Visit: Yes Status: Acute Code(s): N40.1 - BENIGN PROSTATIC HYPERPLASIA WITH LOWER URINARY TRACT SYMP; N13.8 - OTHER OBSTRUCTIVE AND REFLUX UROPATHY (4) Hematuria Current Visit: Yes Status: Acute Qualifiers: Hematuria type: gross Qualified Code(s): R31.0 - Gross hematuria Code(s): R31.9 - HEMATURIA, UNSPECIFIED (5) Right lower lobe pneumonia Current Visit: Yes Status: Acute Qualifiers: Pneumonia type: due to unspecified organism Qualified Code(s): J18.1 - Lobar pneumonia, unspecified organism Code(s): J18.1 - LOBAR PNEUMONIA, UNSPECIFIED ORGANISM (6) BPH loc w urin obs/LUTS Current Visit: Yes Status: Acute Code(s): N40.1 - BENIGN PROSTATIC HYPERPLASIA WITH LOWER URINARY TRACT SYMP
[2018-12-21] MEDS ORDERED: MORPHINE SULFATE 4 MG INJ IV ONE (17:23)
[2018-12-21] MEDS ORDERED: MORPHINE SULFATE 4 MG INJ IV PRN (17:24)
[2018-12-21] MEDS: Toprol Xl 50 MG PO SCH ×2 (18:52→22:30)
[2018-12-21] MEDS: Klor Con 10 MEQ PO SCH (21:47)
[2018-12-22 05:55] LABS: Hematocrit 45.8 % (42-50); Hemoglobin 15.5 gm/dl (12.5-18.0); Mean Cell Volume 94.6 fl (78-100); Mean Corpuscular Hgb Concent. 33.8 g/dl (32-36); Mean Platelet Volume 9.7 fl (6-9.5); Platelet Count 240 K/mm3 (150-450); Red Blood Count 4.84 M/mm3 (4.1-5.6); Red Cell Distribution Width 14.4 % (11.5-14.0); White Blood Count 13.2 K/mm3 (4.0-10.5)
[2018-12-22 06:11] LABS: ALBUMIN 3.5 g/dL (3.5-5.0); ALKALINE PHOSPHATASE 73 U/L (38-126); ANION GAP 10.5 MEQ/L (5-15); BLOOD UREA NITROGEN 15 mg/dL (9-20); CHLORIDE 104 mmol/L (98-107); Calcium 8.3 mg/dL (8.4-10.2); Carbon Dioxide 26 mmol/L (22-30); Creatinine 1 0.88 mg/dL (0.66-1.25); Glucose 111 mg/dL (74-106); MAGNESIUM 1.9 mg/dL (1.6-2.3); Potassium 3.7 mmol/L (3.5-5.1); SGOT/AST 24 U/L (17-59); SGPT/ALT 20 U/L (0-50); SODIUM 137 mmol/L (137-145)
[2018-12-22 07:39] VITALS: BP 190/109; PULSE 61; O2SAT 93
[2018-12-22] MEDS: Flomax 0.4 MG PO SCH (07:58)
[2018-12-22] MEDS: Zestril 20 MG PO SCH (07:59)
[2018-12-22] MEDS: Klor Con 10 MEQ PO SCH (07:59)
[2018-12-22] MEDS: hydroDIURIL 25 MG PO SCH (07:59)
[2018-12-22] MEDS: Toprol Xl 50 MG PO SCH (07:59)
[2018-12-22] MEDS: NORVASC 5 MG PO SCH (07:59)
--- NOTE | 2018-12-22 08:34 | XRAY ---
Indication: Pneumonia. Comparison: December 19, 2018. PA/lateral chest again demonstrates minimal scattered fibrosis/scarring without focal infiltrate, consolidation, or large effusion. Heart is not enlarged. No new/acute findings.
== END 2018-12-22 11:30 | disposition home or self-care (01) | DRG 194 ==
LOC: ED 19:08 → MED SURG 12-20 00:38 → OBSVTOIN 12-20 13:00
PROVIDERS: ADMIT General Practice; ATTEND General Practice
DX: J18.9 Pneumonia, unspecified organism (principal); I42.9 Cardiomyopathy, unspecified; N13.8 Other obstructive and reflux uropathy; R31.9 Hematuria, unspecified; Z79.899 Other long term (current) drug therapy; I10 Essential (primary) hypertension; Z86.13 Personal history of malaria; N40.1 Benign prostatic hyperplasia with lower urinary tract symptoms
CPT/HCPCS: 36000; 36415; 71045; 71046; 71260; 74177; 80048; 80053; 81001; 82150; 83605; 83690; 83735; 83880; 84132; 84153; 84154; 84443; 84484; 85025; 85027; 85610; 85730; 87040; 87086; 87651; 93005; 93268; 93306; 94762; 96360; 96361; 96365; 96374; 99285; J0456; J0696; J2270; J2405; J3475; J3480; A9270-GY

== ENCOUNTER 2018-12-25 05:18 | Emergency (ER) | payer MEDICARE ==
[2018-12-25 05:42] VITALS: PULSE 62
[2018-12-25] MEDS ORDERED: XYLOCAINE 2% Uro-Jet TOP ONE (05:54)
[2018-12-25] MEDS ORDERED: XYLOCAINE 2% Uro-Jet ONE (05:54)
--- NOTE | 2018-12-25 05:59 | ERPHSYRPT ---
- History of Present Illness Time Seen by Provider: 12/25/18 05:54 Source: patient Exam Limitations: no limitations Patient Subjective Stated Complaint: pt states he his catheter was replaced on tuesday at [facility]. states he woke up this morning with doscomfort and the catheter leaking with very little urine in the bag. Triage Nursing Assessment: pt alert and oriented, answers questions approp. pt ambulate from wheelchair to stretcher with minimal assist. skin pink warm and dry. respirations nonlabored with lungs cta. small amt of pink urine in leg bag on arrival to room. Physician History: 78-year-old white male with history of arrhythmia, high blood pressure, prostate problems, will area, atrial fibrillation Patient with a Paiz placed last Tuesday at his urologists office secondary to urinary retention. Patient states he woke up this morning he had pressure in the suprapubic region states that he did not feel like his Paiz was draining. Past medical history includes arrhythmia, high blood pressure, prostate problems , malaria in 1972, atrial fibrillation Past surgical history includes cholecystectomy, gallbladder Timing/Duration: today Severity: moderate Modifying Factors: Improves With: nothing Associated Symptoms: abdominal pain (suprapubic discomfort), No nausea, No vomiting, No shortness of breath, No heartburn, No diaphoresis, No cough, No chills, No chest pain, No fever, No headaches, No loss of appetite, No malaise, No rash, No syncope, No seizure, No weakness Allergies/Adverse Reactions: NKA Allergy (Verified 12/25/18 05:41) Home Medications: Amlodipine Besylate 5 mg [Norvasc 5 mg] 10 mg PO DAILY 12/20/18 [History] Hydrochlorothiazide 12.5 mg PO DAILY 12/20/18 [History] Lisinopril 20 mg [Zestril 20 MG] 40 mg PO DAILY 12/20/18 [History] Hx Tetanus, Diphtheria Vaccination/Date Given: No Hx Influenza Vaccination/Date Given: No Hx Pneumococcal Vaccination/Date Given: No Immunizations Up to Date: No - Review of Systems Constitutional: No Fever, No Chills Eyes: No Symptoms Ears, Nose, & Throat: No Symptoms Respiratory: No Cough, No Dyspnea Cardiac: No Chest Pain, No Edema, No Syncope Abdominal/Gastrointestinal: Abdominal Pain (suprapubic discomfort), No Nausea, No Vomiting, No Diarrhea Genitourinary Symptoms: Other (Paiz not draining right), No Dysuria Musculoskeletal: No Back Pain, No Neck Pain Skin: No Rash Neurological: No Dizziness, No Focal Weakness, No Sensory Changes Psychological: No No Symptoms Endocrine: No Symptoms All Other Systems: Reviewed and Negative - Past Medical History Pertinent Past Medical History: Yes Neurological History: No Pertinent History ENT History: No Pertinent History Cardiac History: Arrhythmia, Hypertension Respiratory History: No Pertinent History Endocrine Medical History: No Pertinent History Musculoskeletal History: No Pertinent History GI Medical History: No Pertinent History History: No Pertinent History Psycho-Social History: No Pertinent History Male Reproductive Disorders: Prostate Problems Other Medical History: Pt states he had malaria in 1972, hx of a fib- no longer on blood thinner - Past Surgical History Past Surgical History: Yes Gastrointestinal: Cholecystectomy Other Surgical History: 3 surgeries for gallbladder removal - Social History Smoking Status: Never smoker Exposure to second hand smoke: No Drug Use: none Patient Lives Alone: Yes - Nursing Vital Signs Nursing Vital Signs: Initial Vital Signs Pulse Rate 62 12/25/18 05:27 Respiratory Rate 18 12/25/18 05:27 Blood Pressure 166/102 12/25/18 05:27 O2 Sat by Pulse Oximetry 96 12/25/18 05:27 Pain Scale Pain Intensity 0 - Physical Exam General Appearance: mild distress, alert Eye Exam: PERRL/EOMI, eyes nml inspection Ears, Nose, Throat Exam: normal ENT inspection, TMs normal, pharynx normal, moist mucous membranes Neck Exam: normal inspection, non-tender, supple, full range of motion Respiratory Exam: normal breath sounds, lungs clear, No respiratory distress Cardiovascular Exam: regular rate/rhythm, normal heart sounds, normal peripheral pulses Gastrointestinal/Abdomen Exam: soft, normal bowel sounds, tenderness (mild suprapubic tenderness) Male Genitalia Exam: other (Paiz in place) Back Exam: normal inspection, normal range of motion, No CVA tenderness, No vertebral tenderness Extremity Exam: normal inspection, normal range of motion, pelvis stable Neurologic Exam: alert, oriented x 3, cooperative, medical manager II-XII nml as tested, normal mood/affect, nml cerebellar function, nml station & gait, sensation nml, No motor deficits Skin Exam: normal color, warm, dry, No rash Lymphatic Exam: No adenopathy SpO2 Interpretation: normal (96%) SpO2: 96 Ordered Tests: Active Orders 24 hr Category Date Time Status Catheter-Spicer Paiz STAT Care 12/25/18 05:55 Active CULTURE,URINE Stat Lab 12/25/18 06:14 Ordered UA W/RFX UR CULTURE Stat Lab 12/25/18 06:14 Completed Medication Summary Generic Name Dose Route Start Last Admin Trade Name Freq PRN Reason Stop Dose Admin Cefazolin Sodium 1 g 12/25/18 06:39 Kefzol 1 Gm IM 12/25/18 06:40 STAT ONE Discontinued Medications Generic Name Dose Route Start Last Admin Trade Name Freq PRN Reason Stop Dose Admin Lidocaine HCl 200 mg 12/25/18 05:54 12/25/18 06:10 Xylocaine 2% Uro-Jet TOP 12/25/18 05:55 200 mg STAT ONE Administration Lidocaine HCl Confirm 12/25/18 05:54 Xylocaine 2% Uro-Jet Administered 12/25/18 05:55 Dose 200 mg .ROUTE .[facility] ONE Lab/Rad Data: Laboratory Results 12/25/18 Range/Units 06:14 Urine Color RED (YELLOW) Urine Appearance CLEAR (CLEAR) Urine pH 7.0 (5-6) Ur Specific [place] 1.006 (1.005-1.025) Urine Protein 100 (Negative) Urine Ketones NEGATIVE (NEGATIVE) Urine Blood LARGE (0-5) Surendra/ul Urine Nitrite NEGATIVE (NEGATIVE) Urine Bilirubin NEGATIVE (NEGATIVE) Urine Urobilinogen NEGATIVE (0-1) mg/dL Ur Leukocyte Esterase MODERATE (NEGATIVE) Urine WBC (Auto) 26-50 (0-5) /HPF Urine RBC (Auto) >101 (0-2) /HPF U Epithel Cells (Auto) RARE (FEW) /HPF Urine Bacteria (Auto) RARE (NEGATIVE) /HPF Unidentified Crystals 10-25 (NEGATIVE) /HPF Other Casts (Auto) 2-5 (NEGATIVE) /LPF Urine Mucus (Auto) SLIGHT (NEGATIVE) /HPF Urine Culture Reflexed ORDERED SEPARATELY (NO) Urine Glucose NEGATIVE (NEGATIVE) mg/dL - Progress Progress: improved Progress Note: 12/25/18 06:09 Patient's Paiz was replaced by the patient's nurse uroject lidocaine was used for patient's comfort. The patient's Paiz is now draining there was some pink urine. 12/25/18 06:40 Patient with 26-50 white cells per high-power field in his urine. He is on Keflex 500 mg orally 4 times a day he has approximately 3 more days. Will go ahead and give patient Rocephin 1 g IM patient to continue his Keflex. Patient to followup with his family . - Departure Departure Disposition: Home Clinical Impression: Problem with Paiz catheter Qualifiers: Encounter type: initial encounter Qualified Code(s): T83.9XXA - Unspecified complication of genitourinary prosthetic device, implant and graft, initial encounter UTI (urinary tract infection) Qualifiers: Urinary tract infection type: site unspecified Hematuria presence: with hematuria Qualified Code(s): N39.0 - Urinary tract infection, site not specified ; R31.9 - Hematuria, unspecified Condition: Fair Critical Care Time: No Referrals: ANGELITA MEHTA [Primary Care Provider] - Additional Instructions: Continue Keflex as previously prescribed to you. Followup with your family or your urologist, Return for acute distress or for severe symptoms or for any problems.
[2018-12-25 06:16] VITALS: BP 160/94
[2018-12-25 06:34] LABS: Appearance CLEAR (CLEAR); Bacteria RARE /HPF (NEGATIVE); Bilirubin NEGATIVE (NEGATIVE); Blood LARGE Ery/ul (0-5); Glucose NEGATIVE (NEGATIVE); Ketones NEGATIVE (NEGATIVE); Leukocyte Esterase MODERATE (NEGATIVE); Mucus SLIGHT /HPF (NEGATIVE); Nitrite NEGATIVE (NEGATIVE); Protein,Urine Dip 100 (Negative); Specific Gravity 1.006 (1.005-1.025); Urobilinogen NEGATIVE mg/dL (0-1); WBC 26-50 /HPF (0-5)
[2018-12-25 06:35] LABS: Epithelial Cells RARE /HPF (FEW); RBC >101 /HPF (0-2)
[2018-12-25] MEDS ORDERED: KEFZOL 1 GM IM ONE (06:39)
[2018-12-25] MEDS ORDERED: XYLOCAINE 1% HCL 20 ML MDV ONE (06:41)
[2018-12-25] MEDS ORDERED: Rocephin 1000 MG INJ ONE (06:41)
[2018-12-25 06:42] VITALS: O2SAT 96
[2018-12-25] MEDS ORDERED: Rocephin 1000 MG INJ IM ONE (06:43)
== END 2018-12-25 07:00 | disposition home or self-care (01) ==
LOC: ED 05:18
DX: T83.9XXA Unspecified complication of genitourinary prosthetic device, implant and graft, initial encounter (principal); N39.0 Urinary tract infection, site not specified
CPT/HCPCS: 51702; 81001; 87086; 96372; 99284; J0696

== ENCOUNTER 2020-06-10 18:38 | Observation (INO) | payer MEDICARE ==
[2020-06-10] MEDS ORDERED: Sodium Chloride 0.9% 1000 ML 1,000 ML IV STA ×2 (19:13→21:04)
[2020-06-10] MEDS ORDERED: Sodium Chloride 0.9% 1000 ML 1,000 ML ONE ×2 (19:38→21:05)
[2020-06-10 19:44] LABS: Absolute Neutrophil Ct (ANC) 13.85 (1.4-6.9); BASOPHIL % 0.3 % (0.0-0.4); Basophil (Absolute #) 0.05 (0-0.4); Eosinophil % 0.5 % (0.00-5.0); Eosinophil (Absolute #) 0.09 (0-0.5); Hematocrit 50.4 % (42-50); Hemoglobin 16.5 gm/dl (12.5-18.0); Lymphocytes % 11.6 % (24.0-44.0); Mean Cell Volume 93.2 fl (78-100); Mean Corpuscular Hemoglobin 30.5 pg (26-32); Mean Corpuscular Hgb Concent. 32.7 g/dl (32-36); Monocytes % 7.5 % (0.0-12.0); Neutrophil % 80.1 % (36.0-66.0); Platelet Count 312 K/mm3 (150-450); Red Blood Count 5.41 M/mm3 (4.1-5.6); Red Cell Distribution Width 13.9 % (11.5-14.0); White Blood Count 17.3 K/mm3 (4.0-10.5)
[2020-06-10 19:46] LABS: Appearance CLEAR (CLEAR); Bilirubin NEGATIVE (NEGATIVE); Blood NEGATIVE Ery/ul (0-5); Glucose NEGATIVE (NEGATIVE); Ketones NEGATIVE (NEGATIVE); Leukocyte Esterase NEGATIVE (NEGATIVE); Mucus SLIGHT /HPF (NEGATIVE); Nitrite NEGATIVE (NEGATIVE); Protein,Urine Dip NEGATIVE (Negative); Specific Gravity 1.009 (1.005-1.025); Urobilinogen NEGATIVE mg/dL (0-1)
[2020-06-10 19:57] LABS: ALBUMIN 4.3 g/dL (3.5-5.0); ALKALINE PHOSPHATASE 94 U/L (38-126); ANION GAP 12.8 MEQ/L (5-15); BLOOD UREA NITROGEN 16 mg/dL (9-20); CHLORIDE 96 mmol/L (98-107); Calcium 8.9 mg/dL (8.4-10.2); Carbon Dioxide 31 mmol/L (22-30); Creatinine 1 0.98 mg/dL (0.66-1.25); EST GLOMERULAR FILTRATION RATE > 60.0 ML/MIN; Glucose 148 mg/dL (74-106); Potassium 3.5 mmol/L (3.5-5.1); SGOT/AST 35 U/L (17-59); SGPT/ALT 23 U/L (0-50); SODIUM 136 mmol/L (137-145); Total Protein 8.2 g/dL (6.3-8.2)
[2020-06-10 20:16] LABS: INFLUENZA A NEGATIVE (NEGATIVE); INFLUENZA B NEGATIVE (NEGATIVE)
--- NOTE | 2020-06-10 20:53 | ERPHSYRPT ---
- History of Present Illness Time Seen by Provider: 06/10/20 19:00 Source: patient Exam Limitations: no limitations Patient Subjective Stated Complaint: Fever Triage Nursing Assessment: Patient brought back to ED via w/c and transferred to bed with assist of 2. Patient weak. Patients skin flushed, warm and dry. Patient A+O X 3. Patient complains of fever (unknown amount), SOB, and fatigue. Patient's body shaking. Patient denies pain or discomfort. Lungs diminished throughout. Physician History: Patient is a 80-year-old male presents to our ED with complaints of fever generalized weakness shortness of breath and fatigue. Symptoms became worse today. Patient skin is warm to touch. Patient has right groups. Patient denies pain. No obvious Covid exposure. Symptoms are constant. Symptoms are moderate in intensity. No specific worsening improving factors. Patient denies diarrhea. No nausea or vomiting. No chest pain. HPI limited due to acuity. Patient voices no other complaints at this time. Timing/Duration: today Severity: moderate Modifying Factors: Improves With: nothing Associated Symptoms: shortness of breath, fever, weakness, No nausea, No vomiting, No cough, No syncope, No seizure Allergies/Adverse Reactions: NKA Allergy (Verified 06/10/20 18:51) Home Medications: Amlodipine Besylate 5 mg [Norvasc 5 mg] 10 mg PO DAILY 12/20/18 [History] Hydrochlorothiazide 12.5 mg PO DAILY 12/20/18 [History] Lisinopril 20 mg [Zestril 20 MG] 40 mg PO DAILY 12/20/18 [History] Hx Tetanus, Diphtheria Vaccination/Date Given: No Hx Influenza Vaccination/Date Given: No Hx Pneumococcal Vaccination/Date Given: No Immunizations Up to Date: Yes Travel Risk - International Travel Have you traveled outside of the country in past 3 weeks: No - Coronavirus Screening Are you exhibiting any of the following symptoms?: Yes Symptoms: Fever, Shortness of Breath, Headaches/Body Aches/Fatigue Close contact with a COVID-19 positive Pt in past 14-21 Days: No - Review of Systems Constitutional: No Symptoms, No Fever, No Chills Eyes: No Symptoms Ears, Nose, & Throat: No Symptoms Respiratory: No Symptoms, No Cough, No Dyspnea Cardiac: No Symptoms, No Chest Pain, No Edema, No Syncope Abdominal/Gastrointestinal: No Symptoms, No Abdominal Pain, No Nausea, No Vomiting, No Diarrhea Genitourinary Symptoms: No Symptoms, No Dysuria Musculoskeletal: No Symptoms, No Back Pain, No Neck Pain Skin: No Symptoms, No Rash Neurological: No Symptoms, No Dizziness, No Focal Weakness, No Sensory Changes Psychological: No Symptoms Endocrine: No Symptoms Hematologic/Lymphatic: No Symptoms Immunological/Allergic: No Symptoms All Other Systems: Reviewed and Negative - Past Medical History Pertinent Past Medical History: Yes Neurological History: No Pertinent History ENT History: No Pertinent History Cardiac History: Arrhythmia, Hypertension Respiratory History: No Pertinent History Endocrine Medical History: No Pertinent History Musculoskeletal History: No Pertinent History GI Medical History: No Pertinent History History: No Pertinent History Psycho-Social History: No Pertinent History Male Reproductive Disorders: Prostate Problems Other Medical History: Pt states he had malaria in 1972, hx of a fib- no longer on blood thinner - Past Surgical History Past Surgical History: Yes Gastrointestinal: Cholecystectomy Other Surgical History: 3 surgeries for gallbladder removal - Social History Smoking Status: Never smoker Exposure to second hand smoke: No Drug Use: none Patient Lives Alone: Yes - Nursing Vital Signs Nursing Vital Signs: Initial Vital Signs Temperature 98.5 F 06/10/20 18:55 Pulse Rate 88 06/10/20 18:55 Respiratory Rate 25 H 06/10/20 18:55 Blood Pressure 176/115 06/10/20 18:55 O2 Sat by Pulse Oximetry 99 06/10/20 18:55 Pain Scale Pain Intensity 0 - Physical Exam General Appearance: no apparent distress, alert Eye Exam: PERRL/EOMI, eyes nml inspection Ears, Nose, Throat Exam: normal ENT inspection, TMs normal, pharynx normal, moist mucous membranes Neck Exam: normal inspection, non-tender, supple, full range of motion Respiratory Exam: normal breath sounds, airway intact, diminished breath sounds, No respiratory distress, No accessory muscle use Cardiovascular Exam: regular rate/rhythm, normal heart sounds, normal peripheral pulses Gastrointestinal/Abdomen Exam: soft, normal bowel sounds, other (Undifferentiated mild to diffuse abdominal pain.), No tenderness, No mass Back Exam: normal inspection, normal range of motion, No CVA tenderness, No vertebral tenderness Extremity Exam: normal inspection, normal range of motion, pelvis stable, other (3+ pitting edema bilateral lower extremities. Negative Wade bilaterally.) Neurologic Exam: alert, oriented x 3, cooperative, normal mood/affect, nml cerebellar function, nml station & gait, sensation nml, other (Ptosis left eye has been present for the past 4 days.), No motor deficits, No facial droop Skin Exam: normal color, warm, dry, No rash Lymphatic Exam: No adenopathy SpO2 Interpretation: normal SpO2: 98 O2 Delivery: Room Air - Course Nursing assessment & vital signs reviewed: Yes EKG Interpreted by Me: RATE ([id number]), NORMAL AXIS, NORMAL INTERVALS - Radiology Exams Chest X-ray Interpretation: Teleradiologist Report (Compared to 01/19/2019 less inflated accentuating cardio pulmonary structures. Allowing for different depth of inspiration, stable cardiomegaly and left midlung atelectasis/scarring.) - CT Exams Abdomen/Pelvis CT Interpretation: Tele-radiologist Report (Heterogenous prostate pressing the base of the bladder. Enlarged iliac chain and inguinal lymph nodes bilaterally. Correlate with physical labs PSA.) Head CT Interpretation: Tele-radiologist Report (Cranial hemorrhage or mass-effect. Negative for mass lesion or abnormality the region of the left lower lobe) Ordered Tests: Active Orders 24 hr Category Date Time Status Optimization Analyst STAT Care 06/10/20 19:13 Active EKG-ER Only STAT Care 06/10/20 19:13 Active IV Insertion STAT Care 06/10/20 19:13 Active IV Insertion-2nd Peripheral STAT Care 06/10/20 19:20 Active Pulse Oximetry (ED) STAT Care 06/10/20 19:13 Active ABDOMEN AND PELVIS W CONTRAST [CT] Stat Exams 06/10/20 22:05 Taken CHEST 1 VIEW (PORTABLE) Stat Exams 06/10/20 19:13 Taken HEAD WITHOUT CONTRAST [CT] Stat Exams 06/10/20 22:10 Taken CBC W DIFF Stat Lab 06/10/20 19:30 Completed CMP Stat Lab 06/10/20 19:30 Completed INFLUENZA A+B HAYES Stat Lab 06/10/20 19:45 Completed Lactic Acid Stat Lab 06/10/20 19:25 Completed Lactic Acid Stat Lab 06/10/20 21:34 Received TROPONIN Q3H Lab 06/10/20 19:30 Completed TROPONIN Q3H Lab 06/11/20 00:15 Ordered TROPONIN Q3H Lab 06/11/20 03:15 Ordered TROPONIN Q3H Lab 06/11/20 06:15 Ordered TROPONIN Q3H Lab 06/11/20 09:15 Ordered UA W/RFX UR CULTURE Stat Lab 06/10/20 19:18 Completed Transfer Order Routine Transfer 06/11/20 Ordered Medication Summary Generic Name Dose Route Start Last Admin Trade Name Freq PRN Reason Stop Dose Admin Piperacillin Sod/Tazobactam 100 mls @ 200 mls/hr 06/11/20 00:02 06/11/20 00:11 Sod 3.375 gm/ Sodium Chloride IV 06/11/20 00:31 200 mls/hr STAT ONE Administration Vancomycin HCl 1 gm in 200 mls @ 125 mls/hr 06/11/20 00:15 Vancomycin 1 Gram/200 Ml Bag IV 07/11/20 00:14 Q24H JOEY Discontinued Medications Generic Name Dose Route Start Last Admin Trade Name Freq PRN Reason Stop Dose Admin Sodium Chloride 1,000 mls @ 999 mls/hr 06/10/20 19:13 06/10/20 20:41 Sodium Chloride 0.9% 1000 Ml IV 06/10/20 20:13 Infused .Q1H1M STA Infusion Sodium Chloride Confirm 06/10/20 19:38 Sodium Chloride 0.9% 1000 Ml Administered 06/10/20 19:39 Dose 1,000 mls @ ud .ROUTE .STK-MED ONE Sodium Chloride 1,000 mls @ 999 mls/hr 06/10/20 21:04 06/10/20 22:08 Sodium Chloride 0.9% 1000 Ml IV 06/10/20 22:04 Infused .Q1H1M STA Infusion Sodium Chloride Confirm 06/10/20 21:05 Sodium Chloride 0.9% 1000 Ml Administered 06/10/20 21:06 Dose 1,000 mls @ ud .ROUTE .STK-MED ONE Lab/Rad Data: Laboratory Result Diagrams 06/10/20 19:30 06/10/20 19:30 Laboratory Results 06/10/20 06/10/20 06/10/20 Range/Units 20:45 19:45 19:30 WBC (4.0-10.5) K/mm3 RBC (4.1-5.6) M/mm3 Hgb (12.5-18.0) gm/dl Hct (42-50) % MCV (78-100) fl MCH (26-32) pg MCHC (32-36) g/dl RDW (11.5-14.0) % Plt Count (150-450) K/mm3 MPV (7.5-11.0) fl Gran % (36.0-66.0) % Eos # (Auto) (0-0.5) Absolute Lymphs (auto) (1.0-4.6) Absolute Monos (auto) (0.0-1.3) Lymphocytes % (24.0-44.0) % Monocytes % (0.0-12.0) % Eosinophils % (0.00-5.0) % Basophils % (0.0-0.4) % Absolute Granulocytes (1.4-6.9) Basophils # (0-0.4) Sodium (137-145) mmol/L Potassium (3.5-5.1) mmol/L Chloride (98-107) mmol/L Carbon Dioxide (22-30) mmol/L Anion Gap (5-15) MEQ/L BUN (9-20) mg/dL Creatinine (0.66-1.25) mg/dL Estimated GFR ML/MIN Glucose (74-106) mg/dL Lactic Acid (0.4-2.0) Calcium (8.4-10.2) mg/dL Total Bilirubin (0.2-1.3) mg/dL AST (17-59) U/L ALT (0-50) U/L Alkaline Phosphatase (38-126) U/L Troponin I < 0.012 (0.000-0.034) ng/mL Serum Total Protein (6.3-8.2) g/dL Albumin (3.5-5.0) g/dL Urine Color (YELLOW) Urine Appearance (CLEAR) Urine pH (5-6) Ur Specific [place] (1.005-1.025) Urine Protein (Negative) Urine Ketones (NEGATIVE) Urine Blood (0-5) Surendra/ul Urine Nitrite (NEGATIVE) Urine Bilirubin (NEGATIVE) Urine Urobilinogen (0-1) mg/dL Ur Leukocyte Esterase (NEGATIVE) Urine WBC (Auto) (0-5) /HPF Urine RBC (Auto) (0-2) /HPF U Epithel Cells (Auto) (FEW) /HPF Urine Bacteria (Auto) (NEGATIVE) /HPF Urine Mucus (Auto) (NEGATIVE) /HPF Urine Culture Reflexed (NO) Urine Glucose (NEGATIVE) mg/dL Influenza Type A Ag NEGATIVE (NEGATIVE) Influenza Type B Ag NEGATIVE (NEGATIVE) SARS-CoV-2 (PCR) NEGATIVE (NEGATIVE) 06/10/20 06/10/20 06/10/20 Range/Units 19:30 19:30 19:25 WBC 17.3 H (4.0-10.5) K/mm3 RBC 5.41 (4.1-5.6) M/mm3 Hgb 16.5 (12.5-18.0) gm/dl Hct 50.4 H (42-50) % MCV 93.2 (78-100) fl MCH 30.5 (26-32) pg MCHC 32.7 (32-36) g/dl RDW 13.9 (11.5-14.0) % Plt Count 312 (150-450) K/mm3 MPV 10.0 (7.5-11.0) fl Gran % 80.1 H (36.0-66.0) % Eos # (Auto) 0.09 (0-0.5) Absolute Lymphs (auto) 2.00 (1.0-4.6) Absolute Monos (auto) 1.30 (0.0-1.3) Lymphocytes % 11.6 L (24.0-44.0) % Monocytes % 7.5 (0.0-12.0) % Eosinophils % 0.5 (0.00-5.0) % Basophils % 0.3 (0.0-0.4) % Absolute Granulocytes 13.85 H (1.4-6.9) Basophils # 0.05 (0-0.4) Sodium 136 L (137-145) mmol/L Potassium 3.5 (3.5-5.1) mmol/L Chloride 96 L (98-107) mmol/L Carbon Dioxide 31 H (22-30) mmol/L Anion Gap 12.8 (5-15) MEQ/L BUN 16 (9-20) mg/dL Creatinine 0.98 (0.66-1.25) mg/dL Estimated GFR > 60.0 ML/MIN Glucose 148 H (74-106) mg/dL Lactic Acid 3.2 H (0.4-2.0) Calcium 8.9 (8.4-10.2) mg/dL Total Bilirubin 0.80 (0.2-1.3) mg/dL AST 35 (17-59) U/L ALT 23 (0-50) U/L Alkaline Phosphatase 94 (38-126) U/L Troponin I (0.000-0.034) ng/mL Serum Total Protein 8.2 (6.3-8.2) g/dL Albumin 4.3 (3.5-5.0) g/dL Urine Color (YELLOW) Urine Appearance (CLEAR) Urine pH (5-6) Ur Specific [place] (1.005-1.025) Urine Protein (Negative) Urine Ketones (NEGATIVE) Urine Blood (0-5) Surendra/ul Urine Nitrite (NEGATIVE) Urine Bilirubin (NEGATIVE) Urine Urobilinogen (0-1) mg/dL Ur Leukocyte Esterase (NEGATIVE) Urine WBC (Auto) (0-5) /HPF Urine RBC (Auto) (0-2) /HPF U Epithel Cells (Auto) (FEW) /HPF Urine Bacteria (Auto) (NEGATIVE) /HPF Urine Mucus (Auto) (NEGATIVE) /HPF Urine Culture Reflexed (NO) Urine Glucose (NEGATIVE) mg/dL Influenza Type A Ag (NEGATIVE) Influenza Type B Ag (NEGATIVE) SARS-CoV-2 (PCR) (NEGATIVE) 06/10/20 Range/Units 19:18 WBC (4.0-10.5) K/mm3 RBC (4.1-5.6) M/mm3 Hgb (12.5-18.0) gm/dl Hct (42-50) % MCV (78-100) fl MCH (26-32) pg MCHC (32-36) g/dl RDW (11.5-14.0) % Plt Count (150-450) K/mm3 MPV (7.5-11.0) fl Gran % (36.0-66.0) % Eos # (Auto) (0-0.5) Absolute Lymphs (auto) (1.0-4.6) Absolute Monos (auto) (0.0-1.3) Lymphocytes % (24.0-44.0) % Monocytes % (0.0-12.0) % Eosinophils % (0.00-5.0) % Basophils % (0.0-0.4) % Absolute Granulocytes (1.4-6.9) Basophils # (0-0.4) Sodium (137-145) mmol/L Potassium (3.5-5.1) mmol/L Chloride (98-107) mmol/L Carbon Dioxide (22-30) mmol/L Anion Gap (5-15) MEQ/L BUN (9-20) mg/dL Creatinine (0.66-1.25) mg/dL Estimated GFR ML/MIN Glucose (74-106) mg/dL Lactic Acid (0.4-2.0) Calcium (8.4-10.2) mg/dL Total Bilirubin (0.2-1.3) mg/dL AST (17-59) U/L ALT (0-50) U/L Alkaline Phosphatase (38-126) U/L Troponin I (0.000-0.034) ng/mL Serum Total Protein (6.3-8.2) g/dL Albumin (3.5-5.0) g/dL Urine Color STRAW (YELLOW) Urine Appearance CLEAR (CLEAR) Urine pH 7.0 (5-6) Ur Specific [place] 1.009 (1.005-1.025) Urine Protein NEGATIVE (Negative) Urine Ketones NEGATIVE (NEGATIVE) Urine Blood NEGATIVE (0-5) Surendra/ul Urine Nitrite NEGATIVE (NEGATIVE) Urine Bilirubin NEGATIVE (NEGATIVE) Urine Urobilinogen NEGATIVE (0-1) mg/dL Ur Leukocyte Esterase NEGATIVE (NEGATIVE) Urine WBC (Auto) NONE (0-5) /HPF Urine RBC (Auto) NONE (0-2) /HPF U Epithel Cells (Auto) NONE (FEW) /HPF Urine Bacteria (Auto) NONE (NEGATIVE) /HPF Urine Mucus (Auto) SLIGHT (NEGATIVE) /HPF Urine Culture Reflexed NO (NO) Urine Glucose NEGATIVE (NEGATIVE) mg/dL Influenza Type A Ag (NEGATIVE) Influenza Type B Ag (NEGATIVE) SARS-CoV-2 (PCR) (NEGATIVE) - Progress Progress: improved Progress Note: 06/11/20 00:15 Patient reassessed. He feels much better. Rigors resolved. No shortness of breath or chest pain at this time. Patient still feels weak. Work-up reveals a leukocytosis. White blood cell count is of unclear etiology. Chest x-ray negative for pneumonia. Urinalysis within normal limits. Covid negative. CT abdomen and pelvis does not reveal any nidus of infection. However there are nonspecific inguinal lymphadenopathy. Prostates enlarged. We will admit for observation. Case discussed with who accepts admission to observation. We will empirically treat with vancomycin and Zosyn. Plan of care discussed with patient. He agrees to admission at [facility]. Discussed with Dr.: Delilah Will see patient in: hospital (observation) Counseled pt/family regarding: lab results, diagnosis, rad results - Departure Departure Disposition: Observation Clinical Impression: Leukocytosis, Lactic acidosis, Generalized weakness, Shortness of breath, Hiatal hernia, Fatty liver, Liver cyst, Diverticulosis, Enlarged prostate, Inguinal hernia, Adenopathy, Maxillary polyp of sinus, Ptosis Condition: Stable Critical Care Time: No Referrals: ANGELITA MEHTA [Primary Care Provider] -
[2020-06-11] MEDS ORDERED: Zosyn 3.375 GM Vial 3.375 GM in Sodium Chloride 100ML MINI-BAG PLUS 100 ML IV ONE (00:02)
[2020-06-11] MEDS ORDERED: Zosyn 3.375 GM Vial IV ONE (00:10)
[2020-06-11] MEDS ORDERED: Sodium Chloride 100ML MINI-BAG PLUS 100 ML IV ONE (00:11)
[2020-06-11] MEDS ORDERED: VANCOMYCIN 1 GRAM/200 ML BAG 1 GM/200 ML PIGGYBACK IV SCH (00:15)
[2020-06-11] MEDS ORDERED: VANCOMYCIN IV ONE (00:16)
[2020-06-11] MEDS ORDERED: PIGGYBACK IV ONE (00:16)
[2020-06-11] MEDS ORDERED: VANCOMYCIN 1 GRAM/200 ML BAG 1 GM/200 ML PIGGYBACK IV ONE (00:18)
[2020-06-11] MEDS ORDERED: Zofran 4 MG/2 ML VIAL IV PRN (01:25)
[2020-06-11] MEDS ORDERED: MORPHINE SULFATE 2 MG INJ IV PRN (01:25)
[2020-06-11 03:40] LABS: ALBUMIN 3.6 g/dL (3.5-5.0); ALKALINE PHOSPHATASE 71 U/L (38-126); ANION GAP 11.9 MEQ/L (5-15); BLOOD UREA NITROGEN 13 mg/dL (9-20); CHLORIDE 99 mmol/L (98-107); Calcium 8.3 mg/dL (8.4-10.2); Carbon Dioxide 27 mmol/L (22-30); Creatinine 1 0.98 mg/dL (0.66-1.25); EST GLOMERULAR FILTRATION RATE > 60.0 ML/MIN; Glucose 185 mg/dL (74-106); Potassium 3.4 mmol/L (3.5-5.1); SGOT/AST 29 U/L (17-59); SGPT/ALT 23 U/L (0-50); SODIUM 134 mmol/L (137-145)
[2020-06-11 03:48] LABS: Absolute Neutrophil Ct (ANC) 12.71 (1.4-6.9); BASOPHIL % 0.4 % (0.0-0.4); Basophil (Absolute #) 0.06 (0-0.4); Eosinophil % 0.2 % (0.00-5.0); Eosinophil (Absolute #) 0.03 (0-0.5); Hematocrit 45.9 % (42-50); Hemoglobin 15.3 gm/dl (12.5-18.0); Lymphocyte (Absolute #) 2.25 (1.0-4.6); Mean Cell Volume 92.5 fl (78-100); Mean Corpuscular Hemoglobin 30.8 pg (26-32); Mean Corpuscular Hgb Concent. 33.3 g/dl (32-36); Monocyte (Absolute #) 1.06 (0.0-1.3); Monocytes % 6.6 % (0.0-12.0); Neutrophil % 78.8 % (36.0-66.0); Platelet Count 262 K/mm3 (150-450); Red Blood Count 4.96 M/mm3 (4.1-5.6); Red Cell Distribution Width 13.8 % (11.5-14.0); White Blood Count 16.1 K/mm3 (4.0-10.5)
--- NOTE | 2020-06-11 09:05 | XRAY ---
Indication: Headache. Unable to open left eye. Multiple contiguous axial images obtained through the head without contrast. Comparison: None Age-appropriate global atrophy and moderate periventricular degenerative micro-ischemia bilaterally. No acute intracranial hemorrhage, abnormal extra-axial fluid collection, or mass effect. Fourth ventricle is midline without hydrocephalus. Bony calvarium intact. 8mm right maxillary sinus polyp/retention cyst. Remaining paranasal sinuses and mastoid air cells are clear. Impression: Nonacute senile brain with incidental right maxillary sinus polyp/retention cyst. Comment: Preliminary interpretation was made by [facility]. No critical discrepancy.
--- NOTE | 2020-06-11 09:24 | XRAY ---
Indication: Weakness. Pneumonia. Comparison: January 19, 2019. Initial portable chest is underinflated. Repeat portable chest better inflated with grossly stable minimal scattered fibrosis/scarring bilaterally. No focal infiltrate, consolidation, or large effusion. Heart is not enlarged again with tortuous descending aorta. Bony thorax intact. Impression: Continued nonacute chest with chronic features.
--- NOTE | 2020-06-11 09:48 | XRAY ---
Indication: Abdomen pain. Difficulty urination. Multiple contiguous axial images obtained through the abdomen and pelvis using 100 cc Isovue 370 contrast. Comparison: December 20, 2018. Lung bases again demonstrates bibasilar subsegmental atelectasis/scarring. No focal infiltrate or effusion. Heart is not enlarged. Noncontrasted stomach and bowel loops remain nonobstructed again with mild scattered colonic diverticulosis. Stable enlarged/nodular prostate gland again impressing on base of the urinary bladder. Again suspect urinary bladder intraluminal mass near the base grossly unchanged. No free fluid/air. Stable fatty liver, tiny left lobe hepatic cyst, and cholecystectomy. Remaining liver, pancreas, spleen, adrenal glands, kidneys, and ureters are unremarkable. Again minimal aortoiliac calcifications been no AAA or pathologic retroperitoneal lymphadenopathy. Osseous structures intact again with mild/moderate degenerative changes throughout the thoracolumbar spine and mild degenerative changes of both hips. Impression: 1. Stable enlarged/nodular prostate gland impressing on base of bladder. 2. Grossly stable urinary bladder filling defect worrisome for bladder mass. Recommend urologic consultation. 3. Stable incidental fatty liver and tiny hepatic cyst. Comment: Preliminary interpretation was made by [facility] who does not report urinary bladder findings. Telephone report was given to Dr. Alcantara at 0853 hrs. on June 11, 2020.
[2020-06-11] MEDS ORDERED: NORVASC 5 MG PO SCH (12:00)
[2020-06-11] MEDS ORDERED: PHARMACY DOSING REQUEST MC ONE (12:48)
[2020-06-11] MEDS: Toprol Xl 50 MG PO SCH (12:49)
[2020-06-11] MEDS: ELIQUIS 2.5 MG TABLET PO SCH (12:49)
[2020-06-11] MEDS: NORVASC 5 MG PO SCH (12:49)
[2020-06-11] MEDS: Lasix 40 MG PO SCH (12:49)
[2020-06-11] MEDS: Zestril 20 MG PO SCH (12:54)
[2020-06-11] MEDS: Proscar 5 MG PO SCH (12:55)
[2020-06-11] MEDS: Zosyn 3.375 GM Vial 3.375 GM in Sodium Chloride 100ML MINI-BAG PLUS 100 ML IV SCH ×3 (13:39→23:54)
--- NOTE | 2020-06-11 20:18 | PCM.HP ---
History of Present Illness - Chief Complaint Chief Complaint: Generalized weakness, ptosis, enlarged prostate, lymphadeno vladimir,leukocytos History of Present Illness: Patient is a 80-year-old male presents to our ED with complaints of fever generalized weakness shortness of breath and fatigue. Symptoms became worse today. Patient skin is warm to touch. Patient has right groups. Patient denies pain. No obvious Covid exposure. Symptoms are constant. Symptoms are moderate in intensity. No specific worsening improving factors. Patient denies diarrhea. No nausea or vomiting. No chest pain. HPI limited due to acuity. Patient voices no other complaints at this time. Timing/Duration: today Severity: moderate Modifying Factors: Improves With: nothing Associated Symptoms: shortness of breath, fever, weakness, No nausea, No vomiting, No cough, No syncope, No seizure - Review of Systems Constitutional: Fever, Lethargy, No Chills Eyes: No Symptoms Ears, Nose, & Throat: No Symptoms Respiratory: No Cough, No Short Of Breath Cardiac: Edema, No Chest Pain, No Syncope Abdominal/Gastrointestinal: No Abdominal Pain, No Nausea, No Vomiting, No Diarrhea Genitourinary Symptoms: Frequency, No Dysuria Musculoskeletal: No Back Pain, No Neck Pain Skin: No Rash Neurological: No Dizziness, No Focal Weakness, No Sensory Changes Psychological: No Symptoms Endocrine: No Symptoms Hematologic/Lymphatic: No Symptoms Immunological/Allergic: No Symptoms Medications & Allergies Home Medications: Home Medication List Amlodipine Besylate 5 mg [Norvasc 5 mg] 10 mg PO DAILY 12/20/18 [History Confirmed 06/10/20] Hydrochlorothiazide 12.5 mg PO DAILY 12/20/18 [History Confirmed 06/10/20] Lisinopril 20 mg [Zestril 20 MG] 40 mg PO DAILY 12/20/18 [History Confirmed 06/10/20] Apixaban [Eliquis 2.5 mg Tablet] 2.5 mg PO DAILY 06/11/20 [History Confirmed 06/11/20] Finasteride 5 mg [Proscar 5 MG] 5 mg PO DAILY 06/11/20 [History Confirmed 06/11/20] Furosemide 40 mg [Lasix 40 MG] 80 mg PO DAILY 06/11/20 [History Confirmed 06/11/20] Metoprolol Succinate 50 mg [Toprol Xl 50 MG] 50 mg PO DAILY 06/11/20 [History Confirmed 06/11/20] Allergies/Adverse Reactions: Allergies Allergy/AdvReac Type Severity Reaction Status Date / Time NKA Allergy Verified 06/10/20 18:51 - Past Medical History Past Medical History: Yes Neurological History: No Pertinent History ENT History: No Pertinent History Cardiac History: Arrhythmia, Hypertension Respiratory History: No Pertinent History Endocrine Medical History: No Pertinent History Musculoskelatal History: No Pertinent History GI Medical History: No Pertinent History History: No Pertinent History Pyscho-Social History: No Pertinent History Male Reproductive Disorders: Prostate Problems Comment: Pt states he had malaria in 1972, hx of a fib - Past Surgical History Past Surgical History: Yes GI Surgical History: No Pertinent History Male Surgical History: Prostate Surgery Other Surgical History: 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 - Social History Smoking Status: Never smoker Exposure to second hand smoke: No Alcohol: None Drug Use: none - Physical Exam Vital Signs: Vital Signs - 24 hr Temp Pulse Resp BP Pulse Ox 06/11/20 16:00 98.3 F 59 L 20 131/64 96 06/11/20 12:00 98.9 F 74 20 140/65 96 06/11/20 07:22 97.8 F 70 18 133/63 93 L 06/11/20 04:00 97.7 F 74 28 H 145/70 94 L 06/11/20 02:00 92 L 06/11/20 01:59 97.4 F 87 16 137/71 93 L 06/11/20 01:23 86 22 125/67 98 06/11/20 01:00 86 22 130/74 98 06/11/20 00:17 98 06/11/20 00:00 88 20 125/70 96 06/10/20 23:00 79 18 132/66 96 06/10/20 21:00 78 20 158/82 97 General Appearance: no apparent distress, alert Neurologic Exam: alert, oriented x 3, cooperative, normal mood/affect, nml cerebellar function, nml station & gait, sensation nml, No motor deficits Eye Exam: PERRL/EOMI, eyes nml inspection Ears, Nose, Throat Exam: normal ENT inspection, TMs normal, pharynx normal, moist mucous membranes Neck Exam: normal inspection, non-tender, supple, full range of motion Respiratory Exam: normal breath sounds, rhonchi, wheezing, No respiratory distress Cardiovascular Exam: regular rate/rhythm, normal heart sounds, normal peripheral pulses Gastrointestinal/Abdomen Exam: soft, normal bowel sounds, No tenderness, No mass Back Exam: normal inspection, normal range of motion, No CVA tenderness, No vertebral tenderness Extremity Exam: normal inspection, normal range of motion, pelvis stable Skin Exam: normal color, warm, dry, No rash Lymphatic Exam: No adenopathy Results - Labs Lab/Micro Results: Lab Results-Last 24 Hours 06/10/20 06/10/20 06/10/20 Range/Units 19:30 19:45 20:45 WBC (4.0-10.5) K/mm3 RBC (4.1-5.6) M/mm3 Hgb (12.5-18.0) gm/dl Hct (42-50) % MCV (78-100) fl MCH (26-32) pg MCHC (32-36) g/dl RDW (11.5-14.0) % Plt Count (150-450) K/mm3 MPV (7.5-11.0) fl Gran % (36.0-66.0) % Eos # (Auto) (0-0.5) Absolute Lymphs (auto) (1.0-4.6) Absolute Monos (auto) (0.0-1.3) Lymphocytes % (24.0-44.0) % Monocytes % (0.0-12.0) % Eosinophils % (0.00-5.0) % Basophils % (0.0-0.4) % Absolute Granulocytes (1.4-6.9) Basophils # (0-0.4) Sodium (137-145) mmol/L Potassium (3.5-5.1) mmol/L Chloride (98-107) mmol/L Carbon Dioxide (22-30) mmol/L Anion Gap (5-15) MEQ/L BUN (9-20) mg/dL Creatinine (0.66-1.25) mg/dL Estimated GFR ML/MIN Glucose (74-106) mg/dL Lactic Acid (0.4-2.0) Calcium (8.4-10.2) mg/dL Total Bilirubin (0.2-1.3) mg/dL AST (17-59) U/L ALT (0-50) U/L Alkaline Phosphatase (38-126) U/L Troponin I < 0.012 (0.000-0.034) ng/mL Serum Total Protein (6.3-8.2) g/dL Albumin (3.5-5.0) g/dL Influenza Type A Ag NEGATIVE (NEGATIVE) Influenza Type B Ag NEGATIVE (NEGATIVE) SARS-CoV-2 (PCR) NEGATIVE (NEGATIVE) 06/10/20 06/11/20 06/11/20 Range/Units 21:34 00:20 03:20 WBC (4.0-10.5) K/mm3 RBC (4.1-5.6) M/mm3 Hgb (12.5-18.0) gm/dl Hct (42-50) % MCV (78-100) fl MCH (26-32) pg MCHC (32-36) g/dl RDW (11.5-14.0) % Plt Count (150-450) K/mm3 MPV (7.5-11.0) fl Gran % (36.0-66.0) % Eos # (Auto) (0-0.5) Absolute Lymphs (auto) (1.0-4.6) Absolute Monos (auto) (0.0-1.3) Lymphocytes % (24.0-44.0) % Monocytes % (0.0-12.0) % Eosinophils % (0.00-5.0) % Basophils % (0.0-0.4) % Absolute Granulocytes (1.4-6.9) Basophils # (0-0.4) Sodium (137-145) mmol/L Potassium (3.5-5.1) mmol/L Chloride (98-107) mmol/L Carbon Dioxide (22-30) mmol/L Anion Gap (5-15) MEQ/L BUN (9-20) mg/dL Creatinine (0.66-1.25) mg/dL Estimated GFR ML/MIN Glucose (74-106) mg/dL Lactic Acid 1.4 (0.4-2.0) Calcium (8.4-10.2) mg/dL Total Bilirubin (0.2-1.3) mg/dL AST (17-59) U/L ALT (0-50) U/L Alkaline Phosphatase (38-126) U/L Troponin I < 0.012 < 0.012 (0.000-0.034) ng/mL Serum Total Protein (6.3-8.2) g/dL Albumin (3.5-5.0) g/dL Influenza Type A Ag (NEGATIVE) Influenza Type B Ag (NEGATIVE) SARS-CoV-2 (PCR) (NEGATIVE) 06/11/20 06/11/20 06/11/20 Range/Units 03:20 03:20 06:25 WBC 16.1 H (4.0-10.5) K/mm3 RBC 4.96 (4.1-5.6) M/mm3 Hgb 15.3 (12.5-18.0) gm/dl Hct 45.9 (42-50) % MCV 92.5 (78-100) fl MCH 30.8 (26-32) pg MCHC 33.3 (32-36) g/dl RDW 13.8 (11.5-14.0) % Plt Count 262 (150-450) K/mm3 MPV 10.0 (7.5-11.0) fl Gran % 78.8 H (36.0-66.0) % Eos # (Auto) 0.03 (0-0.5) Absolute Lymphs (auto) 2.25 (1.0-4.6) Absolute Monos (auto) 1.06 (0.0-1.3) Lymphocytes % 14.0 L (24.0-44.0) % Monocytes % 6.6 (0.0-12.0) % Eosinophils % 0.2 (0.00-5.0) % Basophils % 0.4 (0.0-0.4) % Absolute Granulocytes 12.71 H (1.4-6.9) Basophils # 0.06 (0-0.4) Sodium 134 L (137-145) mmol/L Potassium 3.4 L (3.5-5.1) mmol/L Chloride 99 (98-107) mmol/L Carbon Dioxide 27 (22-30) mmol/L Anion Gap 11.9 (5-15) MEQ/L BUN 13 (9-20) mg/dL Creatinine 0.98 (0.66-1.25) mg/dL Estimated GFR > 60.0 ML/MIN Glucose 185 H (74-106) mg/dL Lactic Acid (0.4-2.0) Calcium 8.3 L (8.4-10.2) mg/dL Total Bilirubin 1.40 H (0.2-1.3) mg/dL AST 29 (17-59) U/L ALT 23 (0-50) U/L Alkaline Phosphatase 71 (38-126) U/L Troponin I < 0.012 (0.000-0.034) ng/mL Serum Total Protein 7.0 (6.3-8.2) g/dL Albumin 3.6 (3.5-5.0) g/dL Influenza Type A Ag (NEGATIVE) Influenza Type B Ag (NEGATIVE) SARS-CoV-2 (PCR) (NEGATIVE) 06/11/20 Range/Units 09:18 WBC (4.0-10.5) K/mm3 RBC (4.1-5.6) M/mm3 Hgb (12.5-18.0) gm/dl Hct (42-50) % MCV (78-100) fl MCH (26-32) pg MCHC (32-36) g/dl RDW (11.5-14.0) % Plt Count (150-450) K/mm3 MPV (7.5-11.0) fl Gran % (36.0-66.0) % Eos # (Auto) (0-0.5) Absolute Lymphs (auto) (1.0-4.6) Absolute Monos (auto) (0.0-1.3) Lymphocytes % (24.0-44.0) % Monocytes % (0.0-12.0) % Eosinophils % (0.00-5.0) % Basophils % (0.0-0.4) % Absolute Granulocytes (1.4-6.9) Basophils # (0-0.4) Sodium (137-145) mmol/L Potassium (3.5-5.1) mmol/L Chloride (98-107) mmol/L Carbon Dioxide (22-30) mmol/L Anion Gap (5-15) MEQ/L BUN (9-20) mg/dL Creatinine (0.66-1.25) mg/dL Estimated GFR ML/MIN Glucose (74-106) mg/dL Lactic Acid (0.4-2.0) Calcium (8.4-10.2) mg/dL Total Bilirubin (0.2-1.3) mg/dL AST (17-59) U/L ALT (0-50) U/L Alkaline Phosphatase (38-126) U/L Troponin I < 0.012 (0.000-0.034) ng/mL Serum Total Protein (6.3-8.2) g/dL Albumin (3.5-5.0) g/dL Influenza Type A Ag (NEGATIVE) Influenza Type B Ag (NEGATIVE) SARS-CoV-2 (PCR) (NEGATIVE) - Radiology Impressions Radiology Exams & Impressions: Radiology Procedures Category Date Time Status ABDOMEN AND PELVIS W CONTRAST [CT] Stat Exams 06/10/20 22:05 Completed CHEST 1 VIEW (PORTABLE) Stat Exams 06/10/20 19:13 Completed HEAD WITHOUT CONTRAST [CT] Stat Exams 06/10/20 22:10 Completed Assessment/Plan (1) UTI (urinary tract infection) Current Visit: No Status: Acute Qualifiers: Urinary tract infection type: acute pyelonephritis Qualified Code(s): N10 - Acute pyelonephritis Assessment & Plan: Chief Complaint Diagnosis Generalized weakness, ptosis, enlarged prostate, lymphadenopathy,leukocytos Allergies Allergy/AdvReac Type Severity Reaction Status Date / Time NKA Allergy Verified 06/10/20 18:51 Vital Signs (Last 24 hours) Temp Pulse Resp BP Pulse Ox 06/11/20 16:00 98.3 F 59 L 20 131/64 96 06/11/20 12:00 98.9 F 74 20 140/65 96 06/11/20 07:22 97.8 F 70 18 133/63 93 L 06/11/20 04:00 97.7 F 74 28 H 145/70 94 L 06/11/20 02:00 92 L 06/11/20 01:59 97.4 F 87 16 137/71 93 L 06/11/20 01:23 86 22 125/67 98 06/11/20 01:00 86 22 130/74 98 06/11/20 00:17 98 06/11/20 00:00 88 20 125/70 96 06/10/20 23:00 79 18 132/66 96 06/10/20 21:00 78 20 158/82 97 Home Medications Medication Instructions Recorded Confirmed Last Taken Type Apixaban [Eliquis 2.5 mg Tablet] 2.5 mg PO DAILY 06/11/20 06/11/20 Unknown History Finasteride 5 mg [Proscar 5 5 mg PO DAILY 06/11/20 06/11/20 Unknown History MG] Furosemide 40 mg [Lasix 40 80 mg PO DAILY 06/11/20 06/11/20 Unknown History MG] Metoprolol Succinate 50 mg 50 mg PO DAILY 06/11/20 06/11/20 Unknown History [Toprol Xl 50 MG] Current Medications Generic Name Dose Route Start Last Admin Trade Name Freq PRN Reason Stop Dose Admin Amlodipine Besylate 10 mg 06/11/20 12:00 06/11/20 12:49 Norvasc 5 Mg PO 07/11/20 11:59 10 mg DAILY JOEY Administration Apixaban 2.5 mg 06/11/20 12:00 06/11/20 12:49 Eliquis 2.5 Mg Tablet PO 07/11/20 11:59 2.5 mg DAILY JOEY Administration Finasteride 5 mg 06/11/20 12:00 06/11/20 12:55 Proscar 5 Mg PO 07/11/20 11:59 5 mg DAILY JOEY Administration Furosemide 80 mg 06/11/20 12:15 06/11/20 12:49 Lasix 40 Mg PO 07/11/20 12:14 80 mg DAILY JOEY Administration Piperacillin Sod/Tazobactam 100 mls @ 200 mls/hr 06/11/20 13:00 06/11/20 18:56 Sod 3.375 gm/ Sodium Chloride IV 07/11/20 12:59 200 mls/hr Q6HT JOEY Administration Lisinopril 40 mg 06/11/20 12:45 06/11/20 12:54 Zestril 20 Mg PO 07/11/20 12:44 40 mg DAILY JOEY Administration Metoprolol Succinate 50 mg 06/11/20 12:45 06/11/20 12:49 Toprol Xl 50 Mg PO 07/11/20 12:44 50 mg DAILY JOEY Administration Morphine Sulfate 2 mg 06/11/20 01:25 Morphine Sulfate 2 Mg Inj IV 06/16/20 01:24 Q4H PRN PRN PAIN Ondansetron HCl 4 mg 06/11/20 01:25 Zofran 4 Mg/2 Ml Vial IV 07/11/20 01:24 Q6H PRN PRN NAUSEA/VOMITING Discontinued Medications Generic Name Dose Route Start Last Admin Trade Name Freq PRN Reason Stop Dose Admin Sodium Chloride 1,000 mls @ 999 mls/hr 06/10/20 19:13 06/10/20 20:41 Sodium Chloride 0.9% 1000 Ml IV 06/10/20 20:13 Infused .Q1H1M STA Infusion Sodium Chloride Confirm 06/10/20 19:38 Sodium Chloride 0.9% 1000 Ml Administered 06/10/20 19:39 Dose 1,000 mls @ ud .ROUTE .STK-MED ONE Sodium Chloride 1,000 mls @ 999 mls/hr 06/10/20 21:04 06/10/20 22:08 Sodium Chloride 0.9% 1000 Ml IV 06/10/20 22:04 Infused .Q1H1M STA Infusion Sodium Chloride Confirm 06/10/20 21:05 Sodium Chloride 0.9% 1000 Ml Administered 06/10/20 21:06 Dose 1,000 mls @ ud .ROUTE .STK-MED ONE Piperacillin Sod/Tazobactam 100 mls @ 200 mls/hr 06/11/20 00:02 06/11/20 00:11 Sod 3.375 gm/ Sodium Chloride IV 06/11/20 00:31 200 mls/hr STAT ONE Administration Vancomycin HCl 1 gm in 200 mls @ 125 mls/hr 06/11/20 00:15 06/11/20 00:19 Vancomycin 1 Gram/200 Ml Bag IV 07/11/20 00:14 125 mls/hr Q24H JOEY 125 mls/hr Administration Sodium Chloride Confirm 06/11/20 00:11 Sodium Chloride 100ml Mini-Bag Plus Administered 06/11/20 00:12 Dose 100 mls @ ud IV .STK-MED ONE Vancomycin HCl Confirm 06/11/20 00:16 Vancomycin 2 Gram/400 Ml Bag Administered 06/11/20 00:17 Dose 2 gm in 400 mls @ ud IV .STK-MED ONE Vancomycin HCl Confirm 06/11/20 00:18 Vancomycin 1 Gram/200 Ml Bag Administered 06/11/20 00:19 Dose 1 gm in 200 mls @ ud IV .STK-MED ONE Non-Formulary Medication 1 each 06/11/20 12:48 06/11/20 12:57 Pharmacy Dosing Request MC 06/11/20 12:49 1 each STAT ONE Administration Piperacillin Sod/Tazobactam Sod Confirm 06/11/20 00:10 Zosyn 3.375 Gm Vial Administered 06/11/20 00:11 Dose 3.375 gm IV .STK-MED ONE Intake & Output (Last 24 hours) 06/09/20 06/10/20 06/11/20 06/12/20 11:59 11:59 11:59 11:59 Intake Total 610 360 Output Total 1150 500 Balance -540 -140 Weight 152.5 kg Laboratory Results (Last 24 hours) 06/11/20 06/11/20 06/11/20 09:18 06:25 03:20 WBC RBC Hgb Hct MCV MCH MCHC RDW Plt Count MPV Gran % Eos # (Auto) Absolute Lymphs (auto) Absolute Monos (auto) Lymphocytes % Monocytes % Eosinophils % Basophils % Absolute Granulocytes Basophils # Sodium 134 L Potassium 3.4 L Chloride 99 Carbon Dioxide 27 Anion Gap 11.9 BUN 13 Creatinine 0.98 Estimated GFR > 60.0 Glucose 185 H Lactic Acid Calcium 8.3 L Total Bilirubin 1.40 H AST 29 ALT 23 Alkaline Phosphatase 71 Troponin I < 0.012 < 0.012 Serum Total Protein 7.0 Albumin 3.6 Influenza Type A Ag Influenza Type B Ag SARS-CoV-2 (PCR) 06/11/20 06/11/20 06/11/20 03:20 03:20 00:20 WBC 16.1 H RBC 4.96 Hgb 15.3 Hct 45.9 MCV 92.5 MCH 30.8 MCHC 33.3 RDW 13.8 Plt Count 262 MPV 10.0 Gran % 78.8 H Eos # (Auto) 0.03 Absolute Lymphs (auto) 2.25 Absolute Monos (auto) 1.06 Lymphocytes % 14.0 L Monocytes % 6.6 Eosinophils % 0.2 Basophils % 0.4 Absolute Granulocytes 12.71 H Basophils # 0.06 Sodium Potassium Chloride Carbon Dioxide Anion Gap BUN Creatinine Estimated GFR Glucose Lactic Acid Calcium Total Bilirubin AST ALT Alkaline Phosphatase Troponin I < 0.012 < 0.012 Serum Total Protein Albumin Influenza Type A Ag Influenza Type B Ag SARS-CoV-2 (PCR) 06/10/20 06/10/20 06/10/20 21:34 20:45 19:45 WBC RBC Hgb Hct MCV MCH MCHC RDW Plt Count MPV Gran % Eos # (Auto) Absolute Lymphs (auto) Absolute Monos (auto) Lymphocytes % Monocytes % Eosinophils % Basophils % Absolute Granulocytes Basophils # Sodium Potassium Chloride Carbon Dioxide Anion Gap BUN Creatinine Estimated GFR Glucose Lactic Acid 1.4 Calcium Total Bilirubin AST ALT Alkaline Phosphatase Troponin I Serum Total Protein Albumin Influenza Type A Ag NEGATIVE Influenza Type B Ag NEGATIVE SARS-CoV-2 (PCR) NEGATIVE 06/10/20 19:30 WBC RBC Hgb Hct MCV MCH MCHC RDW Plt Count MPV Gran % Eos # (Auto) Absolute Lymphs (auto) Absolute Monos (auto) Lymphocytes % Monocytes % Eosinophils % Basophils % Absolute Granulocytes Basophils # Sodium Potassium Chloride Carbon Dioxide Anion Gap BUN Creatinine Estimated GFR Glucose Lactic Acid Calcium Total Bilirubin AST ALT Alkaline Phosphatase Troponin I < 0.012 Serum Total Protein Albumin Influenza Type A Ag Influenza Type B Ag SARS-CoV-2 (PCR) Orders (Last 24 hours) Category Date Time Status Bedrest with BRP/BSC ROUTINE Activity 06/11/20 01:25 Active Code Status Order ROUTINE Care 06/11/20 01:25 Active IV Care Q6H Care 06/11/20 01:25 Active IV Insertion-2nd Peripheral STAT Care 06/10/20 19:20 Completed Neuro Checks Q4H Care 06/11/20 01:[address] in Observation ROUTINE Care 06/11/20 01:25 Active Telemetry q6h Care 06/11/20 01:25 Active Heart-Healthy Diet Diet 06/11/20 Breakfast Active ABDOMEN AND PELVIS W CONTRAST [CT] Stat Exams 06/10/20 22:05 Completed HEAD WITHOUT CONTRAST [CT] Stat Exams 06/10/20 22:10 Completed CBC W DIFF AM.LAB Lab 06/11/20 03:20 Completed CBC W DIFF Stat Lab 06/10/20 19:30 Completed CMP AM.LAB Lab 06/11/20 03:20 Completed CMP Stat Lab 06/10/20 19:30 Completed INFLUENZA A+B HAYES Stat Lab 06/10/20 19:45 Completed Lactic Acid Stat Lab 06/10/20 19:25 Completed Lactic Acid Stat Lab 06/10/20 21:34 Completed TROPONIN Q3H Lab 06/10/20 19:30 Completed TROPONIN Q3H Lab 06/11/20 00:20 Completed TROPONIN Q3H Lab 06/11/20 03:20 Completed TROPONIN Q3H Lab 06/11/20 06:25 Completed TROPONIN Q3H Lab 06/11/20 09:18 Completed UA W/RFX UR CULTURE Stat Lab 06/10/20 19:18 Completed Amlodipine Besylate 5 mg [Norvasc 5 mg] Med 06/11/20 12:00 Active 10 mg PO DAILY Apixaban [Eliquis 2.5 mg Tablet] Med 06/11/20 12:00 Active 2.5 mg PO DAILY Finasteride 5 mg [Proscar 5 MG] Med 06/11/20 12:00 Active 5 mg PO DAILY Furosemide 40 mg [Lasix 40 MG] Med 06/11/20 12:15 Active 80 mg PO DAILY Lisinopril 20 mg [Zestril 20 MG] Med 06/11/20 12:45 Active 40 mg PO DAILY Metoprolol Succinate 50 mg [Toprol Xl 50 MG] Med 06/11/20 12:45 Active 50 mg PO DAILY Morphine Sulfate 2 mg Inj Med 06/11/20 01:25 Active 2 mg IV Q4H PRN PRN NaCl 0.9% 100 ml Mini-Bag Plus [Sodium Chloride 100ML Med 06/11/20 00:11 Discontinued MINI-BAG PLUS] 100 ml IV UD NaCl 0.9% 1000 ml [Sodium Chloride 0.9% 1000 ML] 1,000 Med 06/10/20 19:38 Discontinued ml .ROUTE UD NaCl 0.9% 1000 ml [Sodium Chloride 0.9% 1000 ML] 1,000 Med 06/10/20 21:05 Discontinued ml .ROUTE UD NaCl 0.9% 1000 ml [Sodium Chloride 0.9% 1000 ML] 1,000 Med 06/10/20 21:04 Discontinued ml IV 999 mls/hr Ondansetron HCl 4 mg/2 ml [Zofran 4 MG/2 ML VIAL] Med 06/11/20 01:25 Active 4 mg IV Q6H PRN PRN Pharmacy Dosing Request Med 06/11/20 12:48 Discontinued 1 each STAT ONE Piperacillin/Tazobactam 3.375G [Zosyn 3.375 GM Vial] Med 06/11/20 00:10 Discontinued 3.375 gm IV .STK-MED ONE Piperacillin/Tazobactam 3.375G [Zosyn 3.375 GM Vial] 3. Med 06/11/20 13:00 Active 375 gm NaCl 0.9% 100 ml Mini-Bag Plus [Sodium Chloride 100ML MINI-BAG PLUS] 100 ml IV Q6HT Piperacillin/Tazobactam 3.375G [Zosyn 3.375 GM Vial] 3. Med 06/11/20 00:02 Discontinued 375 gm NaCl 0.9% 100 ml Mini-Bag Plus [Sodium Chloride 100ML MINI-BAG PLUS] 100 ml IV STAT Vancomycin/Water For Inj (Peg) [Vancomycin 1 Gram/200 Med 06/11/20 00:15 Discontinued ml Bag] 1 gm in 200 ml IV Q24H Vancomycin/Water For Inj (Peg) [Vancomycin 1 Gram/200 Med 06/11/20 00:18 Disco ntinued ml Bag] 1 gm in 200 ml IV UD Vancomycin/Water For Inj (Peg) [Vancomycin 2 Gram/400 Med 06/11/20 00:16 Discontinued ml Bag] 2 gm in 400 ml IV UD PT Eval & Treat (MD Order) ONCE PT 06/11/20 09:22 Completed Transfer Order Routine Transfer 06/11/20 Completed Patient Care Notes (Last 24 hours) 06/11/20 13:19 Nursing Note by Dafne Trevizo FAXED CT ABD, LABS AND FACESHEET TO DR CRUM 06/11/20 @ [id number]. MADE APPOINTMENT. Initialized on 06/11/20 13:19 - END OF NOTE Code(s): N39.0 - URINARY TRACT INFECTION, SITE NOT SPECIFIED (2) Generalized weakness Current Visit: Yes Status: Acute Assessment & Plan: Last Vital Signs Temp 98.3 F 06/11/20 16:00 Pulse 59 L 06/11/20 16:00 Resp 20 06/11/20 16:00 BP 131/64 06/11/20 16:00 Pulse Ox 96 06/11/20 16:00 Allergies NKA Allergy (Verified 06/10/20 18:51) Active Medications Amlodipine Besylate (Norvasc 5 Mg) 10 mg PO DAILY JOEY Stop: 07/11/20 11:59 Last Admin: 06/11/20 12:49 Dose: 10 mg Documented by: Apixaban (Eliquis 2.5 Mg Tablet) 2.5 mg PO DAILY [facility] Stop: 07/11/20 11:59 Last Admin: 06/11/20 12:49 Dose: 2.5 mg Documented by: Finasteride (Proscar 5 Mg) 5 mg PO DAILY [facility] Stop: 07/11/20 11:59 Last Admin: 06/11/20 12:55 Dose: 5 mg Documented by: Furosemide (Lasix 40 Mg) 80 mg PO DAILY [facility] Stop: 07/11/20 12:14 Last Admin: 06/11/20 12:49 Dose: 80 mg Documented by: Piperacillin Sod/Tazobactam (Sod 3.375 gm/ Sodium Chloride) 100 mls @ 200 mls/hr IV Q6HT [facility] Stop: 07/11/20 12:59 Last Admin: 06/11/20 18:56 Dose: 200 mls/hr Documented by: Lisinopril (Zestril 20 Mg) 40 mg PO DAILY [facility] Stop: 07/11/20 12:44 Last Admin: 06/11/20 12:54 Dose: 40 mg Documented by: Metoprolol Succinate (Toprol Xl 50 Mg) 50 mg PO DAILY [facility] Stop: 07/11/20 12:44 Last Admin: 06/11/20 12:49 Dose: 50 mg Documented by: Morphine Sulfate (Morphine Sulfate 2 Mg Inj) 2 mg IV Q4H PRN PRN PRN Reason: PAIN Stop: 06/16/20 01:24 Ondansetron HCl (Zofran 4 Mg/2 Ml Vial) 4 mg IV Q6H PRN PRN PRN Reason: NAUSEA/VOMITING Stop: 07/11/20 01:24 Intake & Output 06/11/20 06/12/20 11:59 11:59 Intake Total 610 360 Output Total 1150 500 Balance -540 -140 Weight 152.5 kg Orders 06/11/20 12:00 Amlodipine Besylate 5 mg [Norvasc 5 mg] 10 mg PO DAILY Apixaban [Eliquis 2.5 mg Tablet] 2.5 mg PO DAILY Finasteride 5 mg [Proscar 5 MG] 5 mg PO DAILY 06/11/20 12:15 Furosemide 40 mg [Lasix 40 MG] 80 mg PO DAILY 06/11/20 12:45 Lisinopril 20 mg [Zestril 20 MG] 40 mg PO DAILY Metoprolol Succinate 50 mg [Toprol Xl 50 MG] 50 mg PO DAILY 06/11/20 13:00 Piperacillin/Tazobactam 3.375G [Zosyn 3.375 GM Vial] 3.375 gm NaCl 0.9% 100 ml Mini-Bag Plus [Sodium Chloride 100ML MINI-BAG PLUS] 100 ml IV Q6HT Lab Tests 06/10/20 06/10/20 06/10/20 19:30 19:45 20:45 WBC RBC Hgb Hct MCV MCH MCHC RDW Plt Count MPV Gran % Eos # (Auto) Absolute Lymphs (auto) Absolute Monos (auto) Lymphocytes % Monocytes % Eosinophils % Basophils % Absolute Granulocytes Basophils # Sodium Potassium Chloride Carbon Dioxide Anion Gap BUN Creatinine Estimated GFR Glucose Lactic Acid Calcium Total Bilirubin AST ALT Alkaline Phosphatase Troponin I < 0.012 Serum Total Protein Albumin Influenza Type A Ag NEGATIVE Influenza Type B Ag NEGATIVE SARS-CoV-2 (PCR) NEGATIVE 06/10/20 06/11/20 06/11/20 21:34 00:20 03:20 WBC RBC Hgb Hct MCV MCH MCHC RDW Plt Count MPV Gran % Eos # (Auto) Absolute Lymphs (auto) Absolute Monos (auto) Lymphocytes % Monocytes % Eosinophils % Basophils % Absolute Granulocytes Basophils # Sodium Potassium Chloride Carbon Dioxide Anion Gap BUN Creatinine Estimated GFR Glucose Lactic Acid 1.4 Calcium Total Bilirubin AST ALT Alkaline Phosphatase Troponin I < 0.012 < 0.012 Serum Total Protein Albumin Influenza Type A Ag Influenza Type B Ag SARS-CoV-2 (PCR) 06/11/20 06/11/20 06/11/20 03:20 03:20 06:25 WBC 16.1 H RBC 4.96 Hgb 15.3 Hct 45.9 MCV 92.5 MCH 30.8 MCHC 33.3 RDW 13.8 Plt Count 262 MPV 10.0 Gran % 78.8 H Eos # (Auto) 0.03 Absolute Lymphs (auto) 2.25 Absolute Monos (auto) 1.06 Lymphocytes % 14.0 L Monocytes % 6.6 Eosinophils % 0.2 Basophils % 0.4 Absolute Granulocytes 12.71 H Basophils # 0.06 Sodium 134 L Potassium 3.4 L Chloride 99 Carbon Dioxide 27 Anion Gap 11.9 BUN 13 Creatinine 0.98 Estimated GFR > 60.0 Glucose 185 H Lactic Acid Calcium 8.3 L Total Bilirubin 1.40 H AST 29 ALT 23 Alkaline Phosphatase 71 Troponin I < 0.012 Serum Total Protein 7.0 Albumin 3.6 Influenza Type A Ag Influenza Type B Ag SARS-CoV-2 (PCR) 06/11/20 09:18 WBC RBC Hgb Hct MCV MCH MCHC RDW Plt Count MPV Gran % Eos # (Auto) Absolute Lymphs (auto) Absolute Monos (auto) Lymphocytes % Monocytes % Eosinophils % Basophils % Absolute Granulocytes Basophils # Sodium Potassium Chloride Carbon Dioxide Anion Gap BUN Creatinine Estimated GFR Glucose Lactic Acid Calcium Total Bilirubin AST ALT Alkaline Phosphatase Troponin I < 0.012 Serum Total Protein Albumin Influenza Type A Ag Influenza Type B Ag SARS-CoV-2 (PCR) Code(s): R53.1 - WEAKNESS (3) Lactic acidosis Current Visit: Yes Status: Acute Code(s): E87.2 - ACIDOSIS (4) Chills Current Visit: No Status: Acute (5) HTN (hypertension) Current Visit: No Status: Acute Qualifiers: Code(s): I10 - ESSENTIAL (PRIMARY) HYPERTENSION
[2020-06-12] MEDS: Zosyn 3.375 GM Vial 3.375 GM in Sodium Chloride 100ML MINI-BAG PLUS 100 ML IV SCH ×4 (06:21→23:48)
[2020-06-12] MEDS: NORVASC 5 MG PO SCH (09:36)
[2020-06-12] MEDS: Proscar 5 MG PO SCH (09:36)
[2020-06-12] MEDS: Lasix 40 MG PO SCH (09:38)
[2020-06-12] MEDS: ELIQUIS 2.5 MG TABLET PO SCH (09:38)
[2020-06-12] MEDS: Zestril 20 MG PO SCH (09:38)
[2020-06-12] MEDS: Toprol Xl 50 MG PO SCH (10:07)
--- NOTE | 2020-06-12 10:21 | PCM.NOTE ---
Date and Time: 06/12/20 1019 Subjective Assessment: doing better - Review of Systems Constitutional: No Fever, No Chills Eyes: No Symptoms Ears, Nose, & Throat: No Symptoms Respiratory: No Cough, No Short Of Breath Cardiac: No Chest Pain, No Edema, No Syncope Abdominal/Gastrointestinal: No Abdominal Pain, No Nausea, No Vomiting, No Diarrhea Genitourinary Symptoms: No Dysuria Musculoskeletal: No Back Pain, No Neck Pain Skin: No Rash Neurological: No Dizziness, No Focal Weakness, No Sensory Changes Psychological: No Symptoms Endocrine: No Symptoms Hematologic/Lymphatic: No Symptoms Immunological/Allergic: No Symptoms Objective Exam General Appearance: no apparent distress, alert Neurologic Exam: alert, oriented x 3, cooperative, normal mood/affect, nml cerebellar function, sensation nml, No motor deficits Skin Exam: normal color, warm, dry Eye Exam: PERRL, EOMI, eyes nml inspection Ears, Nose, Throat Exam: normal ENT inspection, pharynx normal, moist mucous membranes Neck Exam: normal inspection, non-tender, supple, full range of motion Respiratory Exam: normal breath sounds, lungs clear, No respiratory distress Cardiovascular Exam: normal heart sounds, bradycardia Gastrointestinal/Abdomen Exam: soft, No tenderness, No mass Extremity Exam: normal inspection, normal range of motion Back Exam: normal inspection, normal range of motion, No CVA tenderness, No vertebral tenderness Male Genitalia Exam: deferred Rectal Exam: deferred OBJECTIVE DATA Vital Signs: Vital Signs - 24 hr Temp Pulse Resp BP Pulse Ox 06/12/20 07:36 97.5 F 62 20 128/78 95 06/12/20 04:00 97.8 F 53 L 17 116/57 97 06/12/20 00:00 97.8 F 53 L 17 116/57 97 06/11/20 20:00 98.4 F 58 L 18 106/55 95 06/11/20 16:00 98.3 F 59 L 20 131/64 96 06/11/20 12:00 98.9 F 74 20 140/65 96 Pain Assessment - Last Documented Pain Intensity 0 Intake and Output: Intake & Output 06/09/20 06/10/20 06/11/20 06/12/20 11:59 11:59 11:59 11:59 Intake Total 610 610 Output Total 1150 775 Balance -540 -165 Weight 152.5 kg Radiology Exams: Radiology Procedures Category Date Time Status ABDOMEN AND PELVIS W CONTRAST [CT] Stat Exams 06/10/20 22:05 Completed CHEST 1 VIEW (PORTABLE) Stat Exams 06/10/20 19:13 Completed HEAD WITHOUT CONTRAST [CT] Stat Exams 06/10/20 22:10 Completed Assessment/Plan (1) UTI (urinary tract infection) Current Visit: Yes Status: Acute Qualifiers: Urinary tract infection type: acute pyelonephritis Qualified Code(s): N10 - Acute pyelonephritis Assessment & Plan: Chief Complaint Diagnosis Generalized weakness, ptosis, enlarged prostate, lymphadenopathy,leukocytos Allergies Allergy/AdvReac Type Severity Reaction Status Date / Time NKA Allergy Verified 06/10/20 18:51 Vital Signs (Last 24 hours) Temp Pulse Resp BP Pulse Ox 06/12/20 07:36 97.5 F 62 20 128/78 95 06/12/20 04:00 97.8 F 53 L 17 116/57 97 06/12/20 00:00 97.8 F 53 L 17 116/57 97 06/11/20 20:00 98.4 F 58 L 18 106/55 95 06/11/20 16:00 98.3 F 59 L 20 131/64 96 06/11/20 12:00 98.9 F 74 20 140/65 96 Home Medications Medication Instructions Recorded Confirmed Last Taken Type Apixaban [Eliquis 2.5 mg Tablet] 2.5 mg PO DAILY 06/11/20 06/11/20 Unknown History Finasteride 5 mg [Proscar 5 5 mg PO DAILY 06/11/20 06/11/20 Unknown History MG] Furosemide 40 mg [Lasix 40 80 mg PO DAILY 06/11/20 06/11/20 Unknown History MG] Metoprolol Succinate 50 mg 50 mg PO DAILY 06/11/20 06/11/20 Unknown History [Toprol Xl 50 MG] Current Medications Generic Name Dose Route Start Last Admin Trade Name Freq PRN Reason Stop Dose Admin Amlodipine Besylate 10 mg 06/11/20 12:00 06/12/20 09:36 Norvasc 5 Mg PO 07/11/20 11:59 10 mg DAILY JOEY Administration Apixaban 2.5 mg 06/11/20 12:00 06/12/20 09:38 Eliquis 2.5 Mg Tablet PO 07/11/20 11:59 2.5 mg DAILY JOEY Administration Finasteride 5 mg 06/11/20 12:00 06/12/20 09:36 Proscar 5 Mg PO 07/11/20 11:59 5 mg DAILY JOEY Administration Furosemide 80 mg 06/11/20 12:15 06/12/20 09:38 Lasix 40 Mg PO 07/11/20 12:14 80 mg DAILY JOEY Administration Piperacillin Sod/Tazobactam 100 mls @ 200 mls/hr 06/11/20 13:00 06/12/20 06:21 Sod 3.375 gm/ Sodium Chloride IV 07/11/20 12:59 200 mls/hr Q6HT JOEY Administration Lisinopril 40 mg 06/11/20 12:45 06/12/20 09:38 Zestril 20 Mg PO 07/11/20 12:44 40 mg DAILY JOEY Administration Metoprolol Succinate 50 mg 06/11/20 12:45 06/12/20 10:07 Toprol Xl 50 Mg PO 07/11/20 12:44 50 mg DAILY JOEY Administration Morphine Sulfate 2 mg 06/11/20 01:25 Morphine Sulfate 2 Mg Inj IV 06/16/20 01:24 Q4H PRN PRN PAIN Ondansetron HCl 4 mg 06/11/20 01:25 Zofran 4 Mg/2 Ml Vial IV 07/11/20 01:24 Q6H PRN PRN NAUSEA/VOMITING Discontinued Medications Generic Name Dose Route Start Last Admin Trade Name Davonq PRN Reason Stop Dose Admin Sodium Chloride 1,000 mls @ 999 mls/hr 06/10/20 19:13 06/10/20 20:41 Sodium Chloride 0.9% 1000 Ml IV 06/10/20 20:13 Infused .Q1H1M STA Infusion Sodium Chloride Confirm 06/10/20 19:38 Sodium Chloride 0.9% 1000 Ml Administered 06/10/20 19:39 Dose 1,000 mls @ ud .ROUTE .STK-MED ONE Sodium Chloride 1,000 mls @ 999 mls/hr 06/10/20 21:04 06/10/20 22:08 Sodium Chloride 0.9% 1000 Ml IV 06/10/20 22:04 Infused .Q1H1M STA Infusion Sodium Chloride Confirm 06/10/20 21:05 Sodium Chloride 0.9% 1000 Ml Administered 06/10/20 21:06 Dose 1,000 mls @ ud .ROUTE .STK-MED ONE Piperacillin Sod/Tazobactam 100 mls @ 200 mls/hr 06/11/20 00:02 06/11/20 00:11 Sod 3.375 gm/ Sodium Chloride IV 06/11/20 00:31 200 mls/hr STAT ONE Administration Vancomycin HCl 1 gm in 200 mls @ 125 mls/hr 06/11/20 00:15 06/11/20 00:19 Vancomycin 1 Gram/200 Ml Bag IV 07/11/20 00:14 125 mls/hr Q24H JOEY 125 mls/hr Administration Sodium Chloride Confirm 06/11/20 00:11 Sodium Chloride 100ml Mini-Bag Plus Administered 06/11/20 00:12 Dose 100 mls @ ud IV .STK-MED ONE Vancomycin HCl Confirm 06/11/20 00:16 Vancomycin 2 Gram/400 Ml Bag Administered 06/11/20 00:17 Dose 2 gm in 400 mls @ ud IV .STK-MED ONE Vancomycin HCl Confirm 06/11/20 00:18 Vancomycin 1 Gram/200 Ml Bag Administered 06/11/20 00:19 Dose 1 gm in 200 mls @ ud IV .STK-MED ONE Non-Formulary Medication 1 each 06/11/20 12:48 06/11/20 12:57 Pharmacy Dosing Request MC 06/11/20 12:49 1 each STAT ONE Administration Piperacillin Sod/Tazobactam Sod Confirm 06/11/20 00:10 Zosyn 3.375 Gm Vial Administered 06/11/20 00:11 Dose 3.375 gm IV .STK-MED ONE Intake & Output (Last 24 hours) 06/09/20 06/10/20 06/11/20 06/12/20 11:59 11:59 11:59 11:59 Intake Total 610 610 Output Total 1150 775 Balance -540 -165 Weight 152.5 kg Orders (Last 24 hours) Category Date Time Status Discharge Planning,Consult Routine Discharge 06/12/20 Active Amlodipine Besylate 5 mg [Norvasc 5 mg] Med 06/11/20 12:00 Active 10 mg PO DAILY Apixaban [Eliquis 2.5 mg Tablet] Med 06/11/20 12:00 Active 2.5 mg PO DAILY Finasteride 5 mg [Proscar 5 MG] Med 06/11/20 12:00 Active 5 mg PO DAILY Furosemide 40 mg [Lasix 40 MG] Med 06/11/20 12:15 Active 80 mg PO DAILY Lisinopril 20 mg [Zestril 20 MG] Med 06/11/20 12:45 Active 40 mg PO DAILY Metoprolol Succinate 50 mg [Toprol Xl 50 MG] Med 06/11/20 12:45 Active 50 mg PO DAILY Pharmacy Dosing Request Med 06/11/20 12:48 Discontinued 1 each STAT ONE Piperacillin/Tazobactam 3.375G [Zosyn 3.375 GM Vial] 3. Med 06/11/20 13:00 Active 375 gm NaCl 0.9% 100 ml Mini-Bag Plus [Sodium Chloride 100ML MINI-BAG PLUS] 100 ml IV Q6HT PT Eval & Treat (MD Order) ONCE PT 06/11/20 09:22 Completed Patient Care Notes (Last 24 hours) 06/12/20 10:01 Nursing Note by Virginia Platt called dr. corona's office and spoke to jessica (his nurse) regarding pt hr being in the 50's and having metoprolol due. jessica states dr. corona does not want metoprolol held. this nurse will give am metoprolol Initialized on 06/12/20 10:01 - END OF NOTE 06/11/20 13:19 Nursing Note by Dafne Trevizo FAXED CT ABD, LABS AND FACESHEET TO DR CRUM 06/11/20 @ [facility]. MADE APPOINTMENT. Initialized on 06/11/20 13:19 - END OF NOTE Code(s): N39.0 - URINARY TRACT INFECTION, SITE NOT SPECIFIED (2) Generalized weakness Current Visit: Yes Status: Acute Code(s): R53.1 - WEAKNESS (3) Lactic acidosis Current Visit: Yes Status: Acute Code(s): E87.2 - ACIDOSIS (4) Chills Current Visit: No Status: Acute (5) HTN (hypertension) Current Visit: Yes Status: Chronic Qualifiers: Hypertension type: essential hypertension Code(s): I10 - ESSENTIAL (PRIMARY) HYPERTENSION (6) CHF (congestive heart failure), NYHA class III Current Visit: Yes Status: Acute Qualifiers: Congestive heart failure type: combined Congestive heart failure chronicity: acute on chronic Qualified Code(s): I50.43 - Acute on chronic combined systolic (congestive) and diastolic (congestive) heart failure Code(s): I50.9 - HEART FAILURE, UNSPECIFIED
[2020-06-12] MEDS: Zaroxolyn 2.5 MG PO SCH (12:13)
[2020-06-13 05:33] LABS: Absolute Neutrophil Ct (ANC) 8.14 (1.4-6.9); BASOPHIL % 0.3 % (0.0-0.4); Basophil (Absolute #) 0.03 (0-0.4); Eosinophil % 3.1 % (0.00-5.0); Eosinophil (Absolute #) 0.36 (0-0.5); Hematocrit 45.4 % (42-50); Hemoglobin 14.8 gm/dl (12.5-18.0); Lymphocyte (Absolute #) 2.33 (1.0-4.6); Lymphocytes % 20.1 % (24.0-44.0); Mean Cell Volume 93.8 fl (78-100); Mean Corpuscular Hemoglobin 30.6 pg (26-32); Mean Corpuscular Hgb Concent. 32.6 g/dl (32-36); Mean Platelet Volume 10.1 fl (7.5-11.0); Monocyte (Absolute #) 0.76 (0.0-1.3); Monocytes % 6.5 % (0.0-12.0); Platelet Count 261 K/mm3 (150-450); Red Blood Count 4.84 M/mm3 (4.1-5.6); Red Cell Distribution Width 13.9 % (11.5-14.0); White Blood Count 11.6 K/mm3 (4.0-10.5)
[2020-06-13 06:14] LABS: ALBUMIN 3.4 g/dL (3.5-5.0); ANION GAP 9.3 MEQ/L (5-15); BILIRUBIN,TOTAL 0.5 mg/dL (0.2-1.3); Calcium 8.5 mg/dL (8.4-10.2); Creatinine 1 1.27 mg/dL (0.66-1.25); EST GLOMERULAR FILTRATION RATE 58.3 ML/MIN; MAGNESIUM 2.1 mg/dL (1.6-2.3); Potassium 3.1 mmol/L (3.5-5.1)
[2020-06-13] MEDS: Zosyn 3.375 GM Vial 3.375 GM in Sodium Chloride 100ML MINI-BAG PLUS 100 ML IV SCH (06:23)
[2020-06-13 07:07] VITALS: BP 130/66; PULSE 61; O2SAT 94
--- NOTE | 2020-06-13 08:52 | XRAY ---
Indication: Heart failure. Comparison: June 10, 2020. AP/lateral chest obtained in wheelchair again demonstrates borderline cardiomegaly and lingula fibrosis/scarring. No new/acute cardiopulmonary abnormalities.
[2020-06-13] MEDS: Zaroxolyn 2.5 MG PO SCH (09:11)
[2020-06-13] MEDS: Lasix 40 MG PO SCH (09:11)
[2020-06-13] MEDS: Zestril 20 MG PO SCH (09:11)
[2020-06-13] MEDS: Toprol Xl 50 MG PO SCH (09:11)
[2020-06-13] MEDS: NORVASC 5 MG PO SCH (09:11)
[2020-06-13] MEDS: ELIQUIS 2.5 MG TABLET PO SCH (09:12)
[2020-06-13] MEDS: Proscar 5 MG PO SCH (09:12)
--- NOTE | 2020-06-14 08:52 | PCM.DS ---
Discharge Summary Date of Admission: 06/11/20 01:13 Admitting Physician: MAXIME CHINCHILLA Primary Care Provider: ANGELITA MEHTA Allergies Allergies NKA Allergy (Verified 06/10/20 18:51) Hospital Summary - Hospital Course Hospital Course: Chief Complaint Diagnosis Generalized weakness, ptosis, enlarged p rostate, lymphadenopathy,leukocytos Allergies Allergy/AdvReac Type Severity Reaction Status Date / Time NKA Allergy Verified 06/10/20 18:51 Home Medications Medication Instructions Recorded Confirmed Last Taken Type Apixaban [Eliquis 2.5 mg Tablet] 2.5 mg PO DAILY 06/11/20 06/11/20 Unknown Hi story Finasteride 5 mg [Proscar 5 5 mg PO DAILY 06/11/20 06/11/20 Unknown History MG] Furosemide 40 mg [Lasix 40 80 mg PO DAILY 06/11/20 06/11/20 Unknown History MG] Metoprolol Succinate 50 mg 50 mg PO DAILY 06/11/20 06/11/20 Unknown History [Toprol Xl 50 MG] Ciprofloxacin [Cipro 500 MG] 500 mg PO BID #14 tablet 06/13/20 Unknown Rx Potassium Chloride 10 Meq Tab* 10 meq PO BID 30 Days #60 tab 06/13/20 Unknown Rx [Klor Con 10 MEQ] Current Medications Discontinued Medications Generic Name Dose Route Start Last Admin Trade Name Freq PRN Reason Stop Dose Admin Amlodipine Besylate 10 mg 06/11/20 12:00 06/13/20 09:11 Norvasc 5 Mg PO 07/11/20 11:59 10 mg DAILY JOEY Administration Apixaban 2.5 mg 06/11/20 12:00 06/13/20 09:12 Eliquis 2.5 Mg Tablet PO 07/11/20 11:59 2.5 mg DAILY JOEY Administration Finasteride 5 mg 06/11/20 12:00 06/13/20 09:12 Proscar 5 Mg PO 07/11/20 11:59 5 mg DAILY JOEY Administration Furosemide 80 mg 06/11/20 12:15 06/13/20 09:11 Lasix 40 Mg PO 07/11/20 12:14 80 mg DAILY JOEY Administration Sodium Chloride 1,000 mls @ 999 mls/hr 06/10/20 19:13 06/10/20 20:41 Sodium Chloride 0.9% 1000 Ml IV 06/10/20 20:13 Infused .Q1H1M STA Infusion Sodium Chloride Confirm 06/10/20 19:38 Sodium Chloride 0.9% 1000 Ml Administered 06/10/20 19:39 Dose 1,000 mls @ ud .ROUTE .STK-MED ONE Sodium Chloride 1,000 mls @ 999 mls/hr 06/10/20 21:04 06/10/20 22:08 Sodium Chloride 0.9% 1000 Ml IV 06/10/20 22:04 Infused .Q1H1M STA Infusion Sodium Chloride Confirm 06/10/20 21:05 Sodium Chloride 0.9% 1000 Ml Administered 06/10/20 21:06 Dose 1,000 mls @ ud .ROUTE .STK-MED ONE Piperacillin Sod/Tazobactam 100 mls @ 200 mls/hr 06/11/20 00:02 06/11/20 00:11 Sod 3.375 gm/ Sodium Chloride IV 06/11/20 00:31 200 mls/hr STAT ONE Administration Vancomycin HCl 1 gm in 200 mls @ 125 mls/hr 06/11/20 00:15 06/11/20 00:19 Vancomycin 1 Gram/200 Ml Bag IV 07/11/20 00:14 125 mls/hr Q24H JOEY 125 mls/hr Administration Sodium Chloride Confirm 06/11/20 00:11 Sodium Chloride 100ml Mini-Bag Plus Administered 06/11/20 00:12 Dose 100 mls @ ud IV .STK-MED ONE Vancomycin HCl Confirm 06/11/20 00:16 Vancomycin 2 Gram/400 Ml Bag Administered 06/11/20 00:17 Dose 2 gm in 400 mls @ ud IV .STK-MED ONE Vancomycin HCl Confirm 06/11/20 00:18 Vancomycin 1 Gram/200 Ml Bag Administered 06/11/20 00:19 Dose 1 gm in 200 mls @ ud IV .STK-MED ONE Piperacillin Sod/Tazobactam 100 mls @ 200 mls/hr 06/11/20 13:00 06/13/20 06:23 Sod 3.375 gm/ Sodium Chloride IV 07/11/20 12:59 200 mls/hr Q6HT JOEY Administration Lisinopril 40 mg 06/11/20 12:45 06/13/20 09:11 Zestril 20 Mg PO 07/11/20 12:44 40 mg DAILY JOEY Administration Metolazone 5 mg 06/12/20 12:00 06/13/20 09:11 Zaroxolyn 2.5 Mg PO 07/12/20 11:59 5 mg QAM JOEY Administration Metoprolol Succinate 50 mg 06/11/20 12:45 06/13/20 09:11 Toprol Xl 50 Mg PO 07/11/20 12:44 50 mg DAILY JOEY Administration Morphine Sulfate 2 mg 06/11/20 01:25 Morphine Sulfate 2 Mg Inj IV 06/16/20 01:24 Q4H PRN PRN PAIN Non-Formulary Medication 1 each 06/11/20 12:48 06/11/20 12:57 Pharmacy Dosing Request MC 06/11/20 12:49 1 each STAT ONE Administration Ondansetron HCl 4 mg 06/11/20 01:25 Zofran 4 Mg/2 Ml Vial IV 07/11/20 01:24 Q6H PRN PRN NAUSEA/VOMITING Piperacillin Sod/Tazobactam Sod Confirm 06/11/20 00:10 Zosyn 3.375 Gm Vial Administered 06/11/20 00:11 Dose 3.375 gm IV .STK-MED ONE Intake & Output (Last 24 hours) 06/11/20 06/12/20 06/13/20 06/14/20 11:59 11:59 11:59 11:59 Intake Total 047 248 8556 Output Total 2071 039 3239 Balance -540 -165 -1640 Weight 152.5 kg Patient Care Notes (Last 24 hours) 06/13/20 10:58 Nursing Note by Dafne Trevizo FAXED DISCHARGE RECORDS TO DR MADRID 06/13/20 @ [id number] Initialized on 06/13/20 10:58 - END OF NOTE 06/13/20 10:08 Nursing Note by Dafne Trevizo FAXED DISCHARGE RECORDS TO [facility] 06/13/20 @ [id number] Initialized on 06/13/20 10:08 - END OF NOTE 06/13/20 09:57 Case Management Note by Kerrie Luciano [facility] HAS BEEN ARRANGED FOR PATIENT- NO NEW NEEDS IDENTIFIED FOR DC AT THIS TIME Initialized on 06/13/20 09:57 - END OF NOTE 06/13/20 09:41 Case Management Note by Kerrie Luciano [facility] HAS ACCEPTED PATIENT. THEY ARE AWARE PATIENT IS DCING HOME TODAY. Initialized on 06/13/20 09:41 - END OF NOTE - Vitals & Intake/Output Vital Signs: Vital Signs Temperature 98.4 F 06/13/20 07:06 Pulse Rate 61 06/13/20 07:06 Respiratory Rate 16 06/13/20 07:06 Blood Pressure 130/66 06/13/20 07:06 O2 Sat by Pulse Oximetry 94 L 06/13/20 07:06 Intake & Output: Intake & Output 06/11/20 06/12/20 06/13/20 06/14/20 11:59 11:59 11:59 11:59 Intake Total 367 478 6644 Output Total 0406 944 4953 Balance -540 -165 -1640 Weight 152.5 kg - Lab Result Diagrams: 06/13/20 04:50 06/13/20 04:50 - Radiology Exams Ordered Rad Exams-Entire Visit: Radiology Procedures Category Date Time Status CHEST 2 VIEWS (PA AND LAT) Routine Exams 06/13/20 05:00 Completed - Procedures and Test Procedures and Tests throughout Hospitalization: Therapy Orders & Screens 06/11/20 09:22 PT Eval & Treat ( Order) ONCE Reason for Eval:: GENERALIZED WEAKNESS Diagnosis: Generalized weakness, ptosis, enlarged prostate, lymphadenopathy,leukocytos Discharge Exam General Appearance: no apparent distress, alert Neurologic Exam: alert, oriented x 3, cooperative, normal mood/affect, nml cerebellar function, sensation nml, No motor deficits Eye Exam: PERRL, EOMI, eyes nml inspection Ears, Nose, Throat Exam: normal ENT inspection, pharynx normal, moist mucous membranes Neck Exam: normal inspection, non-tender, supple, full range of motion Respiratory Exam: normal breath sounds, lungs clear, No respiratory distress Cardiovascular Exam: regular rate/rhythm, normal heart sounds Gastrointestinal/Abdomen Exam: soft, No tenderness, No mass Male Genitalia Exam: deferred Rectal Exam: deferred Back Exam: normal inspection, normal range of motion, No CVA tenderness, No vertebral tenderness Extremity Exam: normal inspection, normal range of motion Skin Exam: normal color, warm, dry Final Diagnosis/Problem List - Final Discharge Diagnosis/Problem (1) UTI (urinary tract infection) Status: Resolved Code(s): N39.0 - URINARY TRACT INFECTION, SITE NOT SPECIFIED (2) Generalized weakness Status: Resolved Code(s): R53.1 - WEAKNESS (3) Lactic acidosis Status: Resolved Code(s): E87.2 - ACIDOSIS (4) Chills Status: Resolved (5) HTN (hypertension) Status: Chronic Code(s): I10 - ESSENTIAL (PRIMARY) HYPERTENSION (6) CHF (congestive heart failure), NYHA class III Status: Chronic Priority: High Code(s): I50.9 - HEART FAILURE, UNSPECIFIED - Discharge Discharge Date: 06/13/20 Disposition: Home, Self-Care Condition: Stable Prescriptions: New Ciprofloxacin [Cipro 500 MG] 500 mg PO BID #14 tablet Potassium Chloride 10 Meq Tab* [Klor Con 10 MEQ] 10 meq PO BID 30 Days #60 tab Continue Hydrochlorothiazide 12.5 mg PO DAILY Lisinopril 20 mg [Zestril 20 MG] 40 mg PO DAILY Amlodipine Besylate 5 mg [Norvasc 5 mg] 10 mg PO DAILY Apixaban [Eliquis 2.5 mg Tablet] 2.5 mg PO DAILY Furosemide 40 mg [Lasix 40 MG] 80 mg PO DAILY Finasteride 5 mg [Proscar 5 MG] 5 mg PO DAILY Metoprolol Succinate 50 mg [Toprol Xl 50 MG] 50 mg PO DAILY Instructions: Generalized Weakness (DC) Additional Instructions: REFERRAL WAS SENT TO [facility]. THEY SHOULD BE IN CONTACT 24-48 HRS AFTER DC. THEIR PHONE NUMBER IS [phone] Follow up with: TIA MADRID [CONSULTING PHYSICIAN] - 06/25/20 11:45 am (DR MADRID APPOINTMENT AT THE [facility] IN [place].) MAXIME CHINCHILLA MD [ACTIVE STAFF] - 06/20/20 2:30 pm MIKE CRUM DO [NON-STAFF PHY W/O PRIVILEGES] - 06/19/20 2:30 pm Forms: Discharge Instructions
== END 2020-06-13 11:05 | disposition home or self-care (01) ==
LOC: ED 18:38 → MED SURG 06-11 01:13
PROVIDERS: ADMIT General Practice; ATTEND General Practice
DX: N39.0 Urinary tract infection, site not specified (principal); I11.0 Hypertensive heart disease with heart failure; I50.9 Heart failure, unspecified; E87.2 Acidosis; R53.1 Weakness; Z79.899 Other long term (current) drug therapy; R51.9 Headache, unspecified; R50.9 Fever, unspecified
CPT/HCPCS: 36000; 36415; 70450; 71045; 71046; 74177; 80053; 81001; 83605; 83735; 83880; 84484; 85025; 87400; 93005; 93041; 93268; 94760; 96360; 96361; 96365; 96368; 97161; 97530; 99284; G0378; U0003; A9270-GY; J3370

== ENCOUNTER 2020-08-05 21:54 | Observation (INO) | payer MEDICARE ==
[2020-08-05] MEDS ORDERED: Hydromorphone 1 mg/ml Injection IV ONE (21:59)
[2020-08-05] MEDS ORDERED: Sodium Chloride 0.9% 1000 ML 1,000 ML IV STA (21:59)
[2020-08-05] MEDS ORDERED: TYLENOL 325 MG PO STA (22:23)
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
[2020-08-05] MEDS ORDERED: Hydromorphone 1 mg/ml Injection ONE (22:35)
[2020-08-05] MEDS ORDERED: Sodium Chloride 0.9% 1000 ML 1,000 ML ONE (22:35)
[2020-08-05] MEDS ORDERED: TYLENOL 325 MG ONE (22:35)
[2020-08-05 23:04] LABS: Absolute Neutrophil Ct (ANC) 12.84 (1.4-6.9); BASOPHIL % 0.2 % (0.0-0.4); Basophil (Absolute #) 0.03 (0-0.4); Eosinophil % 1.2 % (0.00-5.0); Eosinophil (Absolute #) 0.18 (0-0.5); Hemoglobin 16.6 gm/dl (12.5-18.0); Lymphocytes % 9.7 % (24.0-44.0); Mean Cell Volume 92.6 fl (78-100); Mean Corpuscular Hemoglobin 30.7 pg (26-32); Mean Corpuscular Hgb Concent. 33.2 g/dl (32-36); Mean Platelet Volume 9.8 fl (7.5-11.0); Monocyte (Absolute #) 0.91 (0.0-1.3); Monocytes % 5.9 % (0.0-12.0); Platelet Count 294 K/mm3 (150-450); Red Cell Distribution Width 14.6 % (11.5-14.0); White Blood Count 15.5 K/mm3 (4.0-10.5)
[2020-08-05 23:10] LABS: ALBUMIN 4.4 g/dL (3.5-5.0); ALKALINE PHOSPHATASE 95 U/L (38-126); AMYLASE 56 U/L (30-110); ANION GAP 16.5 MEQ/L (5-15); BLOOD UREA NITROGEN 14 mg/dL (9-20); CHLORIDE 97 mmol/L (98-107); Calcium 8.8 mg/dL (8.4-10.2); Carbon Dioxide 29 mmol/L (22-30); Creatinine 1 1.16 mg/dL (0.66-1.25); EST GLOMERULAR FILTRATION RATE > 60.0 ML/MIN; Glucose 133 mg/dL (74-106); LIPASE 150 U/L (23-300); Potassium 3.5 mmol/L (3.5-5.1); SGOT/AST 27 U/L (17-59); SGPT/ALT 20 U/L (0-50); SODIUM 140 mmol/L (137-145); Total Protein 8.3 g/dL (6.3-8.2)
[2020-08-05 23:23] LABS: Appearance CLEAR (CLEAR); Bilirubin NEGATIVE (NEGATIVE); Blood NEGATIVE Ery/ul (0-5); Glucose NEGATIVE (NEGATIVE); Ketones NEGATIVE (NEGATIVE); Leukocyte Esterase NEGATIVE (NEGATIVE); Nitrite NEGATIVE (NEGATIVE); Protein,Urine Dip NEGATIVE (Negative); Specific Gravity 1.008 (1.005-1.025); Urobilinogen NEGATIVE mg/dL (0-1)
[2020-08-06 00:57] LABS: INFLUENZA A NEGATIVE (NEGATIVE); INFLUENZA B NEGATIVE (NEGATIVE); RESPIRATORY SYNCTIAL VIRUS NEGATIVE (Negative)
[2020-08-06] MEDS ORDERED: Hydromorphone 1 mg/ml Injection IV PRN (02:21)
[2020-08-06] MEDS ORDERED: Zofran 4 MG/2 ML VIAL IV PRN (02:21)
[2020-08-06] MEDS: Sodium Chloride 0.9% 1000 ML 1,000 ML IV SCH ×2 (02:31→16:58)
[2020-08-06 04:53] LABS: Absolute Neutrophil Ct (ANC) 11.63 (1.4-6.9); BASOPHIL % 0.3 % (0.0-0.4); Basophil (Absolute #) 0.04 (0-0.4); Eosinophil % 0.2 % (0.00-5.0); Eosinophil (Absolute #) 0.02 (0-0.5); Hematocrit 44.5 % (42-50); Hemoglobin 14.8 gm/dl (12.5-18.0); Lymphocyte (Absolute #) 0.93 (1.0-4.6); Lymphocytes % 7.1 % (24.0-44.0); Mean Cell Volume 93.3 fl (78-100); Mean Corpuscular Hgb Concent. 33.3 g/dl (32-36); Mean Platelet Volume 9.9 fl (7.5-11.0); Monocyte (Absolute #) 0.56 (0.0-1.3); Monocytes % 4.2 % (0.0-12.0); Neutrophil % 88.2 % (36.0-66.0); Platelet Count 262 K/mm3 (150-450); Red Blood Count 4.77 M/mm3 (4.1-5.6); Red Cell Distribution Width 14.6 % (11.5-14.0); White Blood Count 13.2 K/mm3 (4.0-10.5)
[2020-08-06 05:47] LABS: ANION GAP 12.2 MEQ/L (5-15); BLOOD UREA NITROGEN 12 mg/dL (9-20); CHLORIDE 97 mmol/L (98-107); Calcium 7.9 mg/dL (8.4-10.2); Carbon Dioxide 31 mmol/L (22-30); Creatinine 1 1.15 mg/dL (0.66-1.25); EST GLOMERULAR FILTRATION RATE > 60.0 ML/MIN; Glucose 139 mg/dL (74-106); Potassium 3.1 mmol/L (3.5-5.1); SODIUM 138 mmol/L (137-145)
[2020-08-06] MEDS: Pepcid 20 MG VIAL IV SCH (12:00)
[2020-08-06] MEDS: TYLENOL 325 MG PO PRN ×2 (12:42→23:04)
[2020-08-06] MEDS ORDERED: Lasix 40 MG PO PRN (13:55)
[2020-08-06] MEDS: Proscar 5 MG PO SCH (14:28)
[2020-08-06] MEDS: Klor Con 10 MEQ PO SCH (14:29)
[2020-08-06] MEDS: Toprol Xl 50 MG PO SCH (14:33)
[2020-08-06] MEDS: NORVASC 5 MG PO SCH (14:34)
[2020-08-06] MEDS: hydroDIURIL 25 MG PO SCH (14:34)
[2020-08-06] MEDS: Zestril 20 MG PO SCH (21:51)
[2020-08-06] MEDS: ELIQUIS 2.5 MG TABLET PO SCH (21:51)
[2020-08-06] MEDS ORDERED: NON-FORMULARY ITEM (Lisinopril [Lisinopril] 40 MG) PO SCH (22:00)
[2020-08-07] MEDS: Sodium Chloride 0.9% 1000 ML 1,000 ML IV SCH (05:43)
[2020-08-07] MEDS: TYLENOL 325 MG PO PRN (08:58)
[2020-08-07] MEDS: Pepcid 20 MG VIAL IV SCH (09:04)
[2020-08-07] MEDS: Proscar 5 MG PO SCH (09:04)
[2020-08-07] MEDS: Klor Con 10 MEQ PO SCH (09:04)
[2020-08-07] MEDS: ELIQUIS 2.5 MG TABLET PO SCH (09:04)
[2020-08-07] MEDS: Toprol Xl 50 MG PO SCH (09:27)
[2020-08-07] MEDS ORDERED: NON-FORMULARY ITEM (Amlodipine Besylate [Norvasc] 10 MG) PO SCH (10:00)
[2020-08-07 12:04] VITALS: BP 120/58; PULSE 62; O2SAT 91
[2020-08-07] MEDS ORDERED: ROCEPHIN 1 Gm-D5w 50 ml Bag** 1 G/50 ML IVPB IV SCH (12:30)
[2020-08-07 12:48] LABS: Absolute Neutrophil Ct (ANC) 5.64 (1.4-6.9); BASOPHIL % 0.4 % (0.0-0.4); Basophil (Absolute #) 0.03 (0-0.4); Eosinophil % 1.4 % (0.00-5.0); Hematocrit 42.5 % (42-50); Hemoglobin 14.2 gm/dl (12.5-18.0); Lymphocyte (Absolute #) 1.05 (1.0-4.6); Lymphocytes % 14.6 % (24.0-44.0); Mean Cell Volume 92.8 fl (78-100); Mean Corpuscular Hgb Concent. 33.4 g/dl (32-36); Mean Platelet Volume 9.5 fl (7.5-11.0); Monocyte (Absolute #) 0.36 (0.0-1.3); Neutrophil % 78.6 % (36.0-66.0); Platelet Count 200 K/mm3 (150-450); Red Blood Count 4.58 M/mm3 (4.1-5.6); Red Cell Distribution Width 14.5 % (11.5-14.0); White Blood Count 7.2 K/mm3 (4.0-10.5)
[2020-08-07 12:56] LABS: ALBUMIN 3.3 g/dL (3.5-5.0); ALKALINE PHOSPHATASE 69 U/L (38-126); ANION GAP 12.3 MEQ/L (5-15); BLOOD UREA NITROGEN 13 mg/dL (9-20); CHLORIDE 99 mmol/L (98-107); Calcium 7.6 mg/dL (8.4-10.2); Carbon Dioxide 27 mmol/L (22-30); EST GLOMERULAR FILTRATION RATE > 60.0 ML/MIN; Glucose 148 mg/dL (74-106); Potassium 3.1 mmol/L (3.5-5.1); SGOT/AST 33 U/L (17-59); SGPT/ALT 23 U/L (0-50); SODIUM 135 mmol/L (137-145); Total Protein 6.6 g/dL (6.3-8.2)
[2020-08-07] MEDS: hydroDIURIL 25 MG PO SCH (13:33)
[2020-08-07] MEDS: NORVASC 5 MG PO SCH (13:57)
[2020-08-07] MEDS: Zestril 20 MG PO SCH (14:52)
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
== END 2020-08-07 17:17 | disposition home or self-care (01) ==
LOC: ED 21:54 → MED SURG 08-06 02:18
PROVIDERS: ADMIT General Practice; ATTEND General Practice
DX: R50.83 Postvaccination fever (principal); T50.B95A Adverse effect of other viral vaccines, initial encounter; Z79.899 Other long term (current) drug therapy; I11.0 Hypertensive heart disease with heart failure; I50.9 Heart failure, unspecified
CPT/HCPCS: 0241U; 36000; 36415; 80048; 80053; 81001; 82150; 83605; 83690; 85025; 87040; 94762; 96360; 96374; 99284; G0378; J0696; J1170; A9270-GY

== ENCOUNTER 2023-05-02 11:03 | Inpatient (IN) | payer MEDICARE ==
[2023-05-02] MEDS ORDERED: Sodium Chloride 0.9% 1000 ML 1,000 ML IV STA (11:29)
[2023-05-02] MEDS ORDERED: Sodium Chloride 0.9% 1000 ML 1,000 ML ONE (11:39)
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
[2023-05-02 12:07] LABS: Absolute Neutrophil Ct (ANC) 7.81 x10^3/uL (1.4-6.9); BASOPHIL % 0.3 % (0.0-0.4); Basophil (Absolute #) 0.04 x10^3/uL (0-0.4); Eosinophil % 1.5 % (0.00-5.0); Eosinophil (Absolute #) 0.18 x10^3/uL (0-0.5); Hematocrit 47.7 % (42-50); Hemoglobin 16.1 g/dL (12.5-18.0); IMMATURE GRAN # 0.08 x10^3u/L (0.00-0.03); IMMATURE GRAN % 0.7 % (0.00-0.4); Lymphocyte (Absolute #) 3.09 x10^3/uL (1.0-4.6); Lymphocytes % 25.8 % (24.0-44.0); Mean Cell Volume 89.7 fL (78-100); Mean Corpuscular Hemoglobin 30.3 pg (26-32); Mean Corpuscular Hgb Concent. 33.8 g/dL (32-36); Mean Platelet Volume 9.4 fL (7.5-11.0); Monocyte (Absolute #) 0.78 x10^3/uL (0.0-1.3); Monocytes % 6.5 % (0.0-12.0); Neutrophil % 65.2 % (36.0-66.0); Platelet Count 311 x10^3/uL (150-450); Red Blood Count 5.32 x10^6/uL (4.1-5.6); Red Cell Distribution Width 14.4 % (11.5-14.0)
[2023-05-02 12:23] LABS: ALBUMIN 3.9 g/dL (3.5-5.0); ALKALINE PHOSPHATASE 97 U/L (38-126); ANION GAP 11.8 MEQ/L (5-15); BLOOD UREA NITROGEN 20 mg/dL (9-20); CHLORIDE 101 mmol/L (98-107); CK-Creatinine Phosphokinase 44 U/L (55-170); Calcium 8.8 mg/dL (8.4-10.2); Carbon Dioxide 26 mmol/L (22-30); EST GLOMERULAR FILTRATION RATE 60.8 ML/MIN; ETHYL ALCOHOL < 10 mg/dL (0-10); Glucose 136 mg/dL (74-106); INR 1.02 (0.8-3.0); LIPASE 128 U/L (23-300); MAGNESIUM 2.1 mg/dL (1.6-2.3); PROTIME 11.1 SECONDS (9.4-12.5); PTT 31.3 SECONDS (25.1-36.5); Potassium 3.4 mmol/L (3.5-5.1); SGOT/AST 24 U/L (17-59); SGPT/ALT 19 U/L (0-50); SODIUM 135 mmol/L (137-145); Total Protein 7.9 g/dL (6.3-8.2)
[2023-05-02 12:33] LABS: Appearance Clear (Clear); Bacteria None Seen /HPF (None Seen); Bilirubin Negative (Negative); Blood Negative (Negative); Epithelial Cells None Seen /HPF (None Seen); Glucose, Urine Negative (Negative); Ketones Trace (Negative); Leukocyte Esterase Negative (Negative); Nitrite Negative (Negative); Ph 5.5 (4.6-8.0); Protein,Urine Dip 30 (Negative); RBC 0-2 /HPF (0-5); Specific Gravity 1.015 (1.005-1.030); Urobilinogen 0.2 mg/dL (0.2)
[2023-05-02 12:34] LABS: ADD URINE CULTURE? ORDERED SEPARATELY (NO)
--- NOTE | 2023-05-02 12:49 | XRAY ---
Indication: Pain following injury. Comparison: None 3 view left knee demonstrates osteopenia, small fabella, minimal scattered vascular calcifications, and lower leg soft tissue swelling/edema. No other bony, articular, or soft tissue abnormalities.
[2023-05-02 13:03] LABS: Amphetamine,Urine NEGATIVE (NEGATIVE); Barbiturate,Urine NEGATIVE (NEGATIVE); Benzodiazepine,Urine NEGATIVE (NEGATIVE); Cocaine,Urine NEGATIVE (NEGATIVE); Methadone,Urine NEGATIVE (NEGATIVE); Opiate,Urine NEGATIVE (NEGATIVE); PCP,Urine NEGATIVE (NEGATIVE); THC,Urine NEGATIVE (NEGATIVE)
--- NOTE | 2023-05-02 13:24 | XRAY ---
Indication: Status post fall. Injury. Multiple contiguous axial images obtained through the head without contrast. Comparison: June 10, 2020 Again age-appropriate global atrophy, moderate periventricular degenerative micro-ischemia bilaterally, and remote lacunar infarct right basal ganglia. No acute intracranial hemorrhage, abnormal extra-axial fluid collection, or mass effect. Fourth ventricle is midline without hydrocephalus. Bony calvarium intact. Stable 1 cm right maxillary sinus polyp/retention cyst. Remaining visualized paranasal sinuses and mastoid air cells are clear. Impression: Continued nonacute senile brain with remote lacunar infarct right basal ganglia and incidental right maxillary sinus polyp/retention cyst.
--- NOTE | 2023-05-02 13:27 | XRAY ---
Indication: Status post fall. Injury. Multiple contiguous axial images obtained through the facial bones. Sagittal and coronal reformatted images obtained. Comparison: None Osseous structures demineralized. A few bilateral dental amalgams produces beam artifact. No acute fracture, suspicious bony lesions, or radiopaque foreign body. 1 cm medial right maxillary sinus polyp/retention cyst. Minimal mucosal thickening floor left maxillary and lesser degree floor left frontal sinuses. Remaining paranasal sinuses and nasal passages are clear. Incidental mild nasal septal deviation to the right. Mild bilateral TMJ degenerative changes, right greater than left. Visualized noncontrasted soft tissues demonstrates mild right facial soft tissue swelling without underlying focal solid/cystic mass or abnormal fluid collection. Impression: Right facial soft tissue swelling, paranasal sinus disease, right maxillary sinus polyp/retention cyst, nasoseptal deviation, osteopenia, and bilateral TMJ degenerative changes. Remaining CT facial bones negative.
--- NOTE | 2023-05-02 13:29 | XRAY ---
Indication: Status post fall. Injury. Multiple contiguous axial images obtained through the cervical spine. Sagittal and coronal reformatted images obtained. Comparison: None Osseous structures demineralized. Axial images negative for acute fracture, suspicious bony lesions, or spinal canal stenosis. Minimal/mild C3-T1 degenerative endplate spurring, mild bilateral C2-C4 degenerative facet arthropathy, and moderate atlantoaxial degenerative changes. Sagittal and coronal reformatted images demonstrates normal alignment. Multilevel disc space loss greatest at C4-C7 levels. No acute compression fracture, subluxation, or jumped facet. Normal appearing craniocervical junction. Visualized noncontrasted soft tissues demonstrating mild bilateral carotid calcifications. Impression: 1. Negative acute fracture/subluxation. 2. Chronic findings including osteopenia, multilevel degenerative spondylosis, and bilateral carotid calcifications.
--- NOTE | 2023-05-02 13:33 | XRAY ---
Indication: Status post fall. Injury. Multiple contiguous axial images obtained through the chest using 80 cc Isovue 370 contrast. Comparison: December 20, 2018 Diffuse respiration artifact limits exam. Lungs again demonstrates scattered bilateral subsegmental atelectasis/scarring greatest in lung bases. No suspicious pulmonary mass/nodule, consolidation, effusion, or pneumothorax. Heart is now enlarged. Aorta minimally arteriosclerotic without aneurysm/dissection. Stable tiny left perihilar calcified nodes. Pathologic mediastinal/hilar lymphadenopathy. Bony thorax grossly intact again with osteopenia and mild degenerative changes throughout the spine. CT abdomen/pelvis reported separately. Impression: 1. Respiration artifact. 2. New cardiomegaly without CHF. 3. No gross acute cardiopulmonary abnormalities or fracture. 4. Chronic findings including atelectasis/scarring, arteriosclerotic disease, chronic bony findings, and old granulomatous disease.
--- NOTE | 2023-05-02 13:40 | XRAY ---
Indication: Status post fall. Injury. Multiple contiguous axial images obtained through the abdomen and pelvis using 80 cc Isovue 370 contrast. Comparison: June 10, 2020 CT chest reported separately. Noncontrasted stomach and bowel loops appear nonobstructed. There is now mild diffuse scattered colonic fecal debris throughout. Near empty urinary bladder demonstrates new Paiz balloon catheter in situ. On delayed images, urinary bladder demonstrates again demonstrates large intraluminal filling defects near the base of the bladder possibly debris or blood products. Bladder mass not completely excluded. Stable fatty liver, small left lobe hepatic cyst, and cholecystectomy. No free fluid/air. Remaining liver, pancreas, spleen, adrenal glands, kidneys, and ureters are unremarkable. Again minimal aortoiliac calcifications. No AAA or pathologic retroperitoneal lymphadenopathy. Osseous structures intact again with osteopenia and mild/moderate degenerative changes throughout the spine and both hips. Impression: 1. New diffuse fecal stasis. 2. New Paiz balloon catheter with tip in the bladder. Again abnormal urinary bladder intraluminal filling defects possibly debris, blood products, or bladder mass. 3. Again chronic findings including fatty liver, hepatic cyst, arteriosclerotic disease, and chronic bony findings.
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
[2023-05-02] MEDS ORDERED: Zofran 4 MG/2 ML VIAL IV PRN (18:19)
[2023-05-02] MEDS ORDERED: Docusate Sodium 100 MG PO PRN (18:19)
[2023-05-02] MEDS: Klor Con PO SCH ×3 (19:41→22:30)
[2023-05-02 21:04] LABS: Folate (Folic Acid) 6.96 ng/mL (2.76 - >20); TSH, 3RD Generation 2.33 mIU/L (0.47-4.68)
[2023-05-02] MEDS: ELIQUIS 2.5 MG TABLET PO SCH (22:00)
[2023-05-02] MEDS: Zestril 20 MG PO SCH (22:00)
[2023-05-03] MEDS: Klor Con PO SCH (00:41)
[2023-05-03] MEDS: TYLENOL 325 MG PO PRN (00:41)
[2023-05-03 05:10] LABS: BASOPHIL % 0.6 % (0.0-0.4); Basophil (Absolute #) 0.07 x10^3/uL (0-0.4); Eosinophil % 1.4 % (0.00-5.0); Eosinophil (Absolute #) 0.16 x10^3/uL (0-0.5); Hematocrit 46.6 % (42-50); Hemoglobin 15.6 g/dL (12.5-18.0); IMMATURE GRAN # 0.07 x10^3u/L (0.00-0.03); IMMATURE GRAN % 0.6 % (0.00-0.4); Lymphocyte (Absolute #) 2.62 x10^3/uL (1.0-4.6); Lymphocytes % 22.5 % (24.0-44.0); Mean Cell Volume 89.6 fL (78-100); Mean Corpuscular Hgb Concent. 33.5 g/dL (32-36); Mean Platelet Volume 9.4 fL (7.5-11.0); Monocyte (Absolute #) 0.71 x10^3/uL (0.0-1.3); Monocytes % 6.1 % (0.0-12.0); Neutrophil % 68.8 % (36.0-66.0); Platelet Count 323 x10^3/uL (150-450); Red Cell Distribution Width 14.4 % (11.5-14.0); White Blood Count 11.6 x10^3/uL (4.0-10.5)
--- NOTE | 2023-05-03 05:34 | PCM.NOTE ---
Date and Time: 05/03/23 0532 Subjective Assessment: HPI:Patient admitted with recurrent falls and altered mental status. According to [facility] nurse and patient's son he is normally alert and oriented but noncompliant with medications. Notably he was recently hospitalized at [facility] for UTI. He was sent home with oral antibiotics but it is very possible he did not take them. The patient has poor memory and is a poor historian. He sustained a scalp laceration and bruising of his face as well as a left knee injury. He complains of back pain. He denies other symptoms but history cannot be relied on. Exam shows the injuries but little else. WBC is mildly elevated. UA looks benign. CT of head is unremarkable. CT of chest and various xrays were negative. We will plan MRI of brain and Neurology consult. Continue to observe for signs of infection. 05/03/23: Patient examined bedside. A&O x 3 this morning. States he is feeling better. Plan for MRI this afternoon with neuro consult following. - Review of Systems Constitutional: No Symptoms Eyes: No Symptoms Ears, Nose, & Throat: No Symptoms Respiratory: No Symptoms Cardiac: No Symptoms Abdominal/Gastrointestinal: No Symptoms Genitourinary Symptoms: No Symptoms Musculoskeletal: No Symptoms Skin: No Symptoms Neurological: No Symptoms Objective Exam General Appearance: no apparent distress Neurologic Exam: alert, oriented x 3, cooperative Skin Exam: normal color Wound Assessment: Skin/Wound Assessment Wound/Incision Assessment Start: 05/02/23 18:37 Text: Status: Active Freq: Q6H Protocol: Document 05/03/23 01:58 MP (Rec: 05/03/23 01:58 MP [id number]) Wound/Incision Assessment Right Posterior Head Wound Assessment Shift Assessment Wound Type Laceration Length (cm) (cm) 0.5 Comment scabbed over Eye Exam: PERRL Ears, Nose, Throat Exam: normal ENT inspection Neck Exam: normal inspection Respiratory Exam: normal breath sounds, lungs clear Cardiovascular Exam: regular rate/rhythm, normal heart sounds Gastrointestinal/Abdomen Exam: soft, normal bowel sounds Extremity Exam: normal inspection Back Exam: normal inspection OBJECTIVE DATA Vital Signs: Vital Signs - 24 hr Temp Pulse Resp BP BP Pulse Ox 05/03/23 04:00 98.7 F 62 18 153/83 92 L 05/02/23 23:46 97.6 F 75 22 150/68 95 05/02/23 19:51 98.0 F 62 18 178/81 96 05/02/23 16:42 97.2 F 69 22 208/99 96 05/02/23 15:40 96 05/02/23 15:30 98 05/02/23 15:20 98 05/02/23 15:10 50 L 18 97 05/02/23 15:00 52 L 16 99 05/02/23 14:50 51 L 14 98 05/02/23 14:40 52 L 14 97 05/02/23 14:35 98 05/02/23 14:30 57 L 16 05/02/23 14:20 59 L 24 05/02/23 14:10 56 L 30 H 05/02/23 14:03 53 L 27 H 05/02/23 13:31 58 L 30 H 185/107 05/02/23 13:07 52 L 18 99 05/02/23 12:30 56 L 27 H 86 L 05/02/23 12:20 51 L 15 97 05/02/23 12:10 53 L 16 94 L 05/02/23 12:09 54 L 16 97 05/02/23 11:27 97 F 59 L 24 162/120 98 Pain Assessment - Last Documented Pain Intensity 5 Pain Scale Used 0-10 Pain Scale Intake and Output: Intake & Output 04/30/23 05/01/23 05/02/23 05/03/23 11:59 11:59 11:59 11:59 Intake Total 480 Output Total 1100 Balance -620 Weight 139.7 kg 140 kg Lab Results: Lab Results-Last 24 Hours 05/02/23 05/02/23 05/02/23 Range/Units 11:56 11:56 12:00 WBC 12.0 H (4.0-10.5) x10^3/uL RBC 5.32 (4.1-5.6) x10^6/uL Hgb 16.1 (12.5-18.0) g/dL Hct 47.7 (42-50) % MCV 89.7 (78-100) fL MCH 30.3 (26-32) pg MCHC 33.8 (32-36) g/dL RDW 14.4 H (11.5-14.0) % Plt Count 311 (150-450) x10^3/uL MPV 9.4 (7.5-11.0) fL Gran % 65.2 (36.0-66.0) % Immature Gran % (Auto) 0.7 H (0.00-0.4) % Nucleat RBC Rel Count 0.0 (0.00-0.1) % Eos # (Auto) 0.18 (0-0.5) x10^3/uL Immature Gran # (Auto) 0.08 H (0.00-0.03) x10^3u/L Absolute Lymphs (auto) 3.09 (1.0-4.6) x10^3/uL Absolute Monos (auto) 0.78 (0.0-1.3) x10^3/uL Absolute Nucleated RBC 0.00 (0.00-0.01) x10^3u/L Lymphocytes % 25.8 (24.0-44.0) % Monocytes % 6.5 (0.0-12.0) % Eosinophils % 1.5 (0.00-5.0) % Basophils % 0.3 (0.0-0.4) % Absolute Granulocytes 7.81 H (1.4-6.9) x10^3/uL Basophils # 0.04 (0-0.4) x10^3/uL PT (9.4-12.5) SECONDS INR (0.8-3.0) APTT (25.1-36.5) SECONDS Sodium (137-145) mmol/L Potassium (3.5-5.1) mmol/L Chloride (98-107) mmol/L Carbon Dioxide (22-30) mmol/L Anion Gap (5-15) MEQ/L BUN (9-20) mg/dL Creatinine (0.66-1.25) mg/dL Estimated GFR ML/MIN Glucose (74-106) mg/dL POC Glucometer (74 to 106) mg/dL Lactic Acid (0.4-2.0) Calcium (8.4-10.2) mg/dL Magnesium (1.6-2.3) mg/dL Total Bilirubin (0.2-1.3) mg/dL AST (17-59) U/L ALT (0-50) U/L Alkaline Phosphatase (38-126) U/L Ammonia (9-30) umol/L Creatine Kinase (55-170) U/L Troponin I (0.000-0.034) ng/mL NT-Pro-B Natriuret Pep (<300) pg/mL Serum Total Protein (6.3-8.2) g/dL Albumin (3.5-5.0) g/dL Lipase (23-300) U/L Vitamin B12 (239-931) pg/mL Folic Acid (2.76 - >20) ng/mL TSH 3rd Generation (0.47-4.68) mIU/L Urine Color Yellow (Yellow) Urine Appearance Clear (Clear) Urine pH 5.5 (4.6-8.0) Ur Specific [place] 1.015 (1.005-1.030) Urine Protein 30 (Negative) Urine Glucose (UA) Negative (Negative) mg/dL Urine Ketones Trace A (Negative) Urine Blood Negative (Negative) Urine Nitrite Negative (Negative) Urine Bilirubin Negative (Negative) Urine Urobilinogen 0.2 (0.2) mg/dL Ur Leukocyte Esterase Negative (Negative) U Hyaline Cast (Auto) 3-5 A (0-2) /LPF Urine Microscopic RBC 0-2 (0-5) /HPF Urine Microscopic WBC 3-5 (0-5) /HPF Ur Epithelial Cells None Seen (None Seen) /HPF Urine Bacteria None Seen (None Seen) /HPF Urine Culture Reflexed ORDERED SEPARATELY (NO) Urine Opiates Level NEGATIVE (NEGATIVE) Ur Methadone NEGATIVE (NEGATIVE) Urine Barbiturates NEGATIVE (NEGATIVE) Ur Phencyclidine (PCP) NEGATIVE (NEGATIVE) Urine Amphetamine NEGATIVE (NEGATIVE) U Benzodiazepine Level NEGATIVE (NEGATIVE) Urine Cocaine NEGATIVE (NEGATIVE) Urine Marijuana (THC) NEGATIVE (NEGATIVE) Ethyl Alcohol (0-10) mg/dL 05/02/23 05/02/23 05/02/23 Range/Units 12:00 12:00 12:00 WBC (4.0-10.5) x10^3/uL RBC (4.1-5.6) x10^6/uL Hgb (12.5-18.0) g/dL Hct (42-50) % MCV (78-100) fL MCH (26-32) pg MCHC (32-36) g/dL RDW (11.5-14.0) % Plt Count (150-450) x10^3/uL MPV (7.5-11.0) fL Gran % (36.0-66.0) % Immature Gran % (Auto) (0.00-0.4) % Nucleat RBC Rel Count (0.00-0.1) % Eos # (Auto) (0-0.5) x10^3/uL Immature Gran # (Auto) (0.00-0.03) x10^3u/L Absolute Lymphs (auto) (1.0-4.6) x10^3/uL Absolute Monos (auto) (0.0-1.3) x10^3/uL Absolute Nucleated RBC (0.00-0.01) x10^3u/L Lymphocytes % (24.0-44.0) % Monocytes % (0.0-12.0) % Eosinophils % (0.00-5.0) % Basophils % (0.0-0.4) % Absolute Granulocytes (1.4-6.9) x10^3/uL Basophils # (0-0.4) x10^3/uL PT 11.1 (9.4-12.5) SECONDS INR 1.02 (0.8-3.0) APTT 31.3 (25.1-36.5) SECONDS Sodium 135 L (137-145) mmol/L Potassium 3.4 L (3.5-5.1) mmol/L Chloride 101 (98-107) mmol/L Carbon Dioxide 26 (22-30) mmol/L Anion Gap 11.8 (5-15) MEQ/L BUN 20 (9-20) mg/dL Creatinine 1.20 (0.66-1.25) mg/dL Estimated GFR 60.8 ML/MIN Glucose 136 H (74-106) mg/dL POC Glucometer (74 to 106) mg/dL Lactic Acid (0.4-2.0) Calcium 8.8 (8.4-10.2) mg/dL Magnesium 2.1 (1.6-2.3) mg/dL Total Bilirubin 1.10 (0.2-1.3) mg/dL AST 24 (17-59) U/L ALT 19 (0-50) U/L Alkaline Phosphatase 97 (38-126) U/L Ammonia (9-30) umol/L Creatine Kinase 44 L (55-170) U/L Troponin I < 0.012 (0.000-0.034) ng/mL NT-Pro-B Natriuret Pep (<300) pg/mL Serum Total Protein 7.9 (6.3-8.2) g/dL Albumin 3.9 (3.5-5.0) g/dL Lipase 128 (23-300) U/L Vitamin B12 (239-931) pg/mL Folic Acid (2.76 - >20) ng/mL TSH 3rd Generation (0.47-4.68) mIU/L Urine Color (Yellow) Urine Appearance (Clear) Urine pH (4.6-8.0) Ur Specific [place] (1.005-1.030) Urine Protein (Negative) Urine Glucose (UA) (Negative) mg/dL Urine Ketones (Negative) Urine Blood (Negative) Urine Nitrite (Negative) Urine Bilirubin (Negative) Urine Urobilinogen (0.2) mg/dL Ur Leukocyte Esterase (Negative) U Hyaline Cast (Auto) (0-2) /LPF Urine Microscopic RBC (0-5) /HPF Urine Microscopic WBC (0-5) /HPF Ur Epithelial Cells (None Seen) /HPF Urine Bacteria (None Seen) /HPF Urine Culture Reflexed (NO) Urine Opiates Level (NEGATIVE) Ur Methadone (NEGATIVE) Urine Barbiturates (NEGATIVE) Ur Phencyclidine (PCP) (NEGATIVE) Urine Amphetamine (NEGATIVE) U Benzodiazepine Level (NEGATIVE) Urine Cocaine (NEGATIVE) Urine Marijuana (THC) (NEGATIVE) Ethyl Alcohol < 10 (0-10) mg/dL 05/02/23 05/02/23 05/02/23 Range/Units 12:04 12:06 16:13 WBC (4.0-10.5) x10^3/uL RBC (4.1-5.6) x10^6/uL Hgb (12.5-18.0) g/dL Hct (42-50) % MCV (78-100) fL MCH (26-32) pg MCHC (32-36) g/dL RDW (11.5-14.0) % Plt Count (150-450) x10^3/uL MPV (7.5-11.0) fL Gran % (36.0-66.0) % Immature Gran % (Auto) (0.00-0.4) % Nucleat RBC Rel Count (0.00-0.1) % Eos # (Auto) (0-0.5) x10^3/uL Immature Gran # (Auto) (0.00-0.03) x10^3u/L Absolute Lymphs (auto) (1.0-4.6) x10^3/uL Absolute Monos (auto) (0.0-1.3) x10^3/uL Absolute Nucleated RBC (0.00-0.01) x10^3u/L Lymphocytes % (24.0-44.0) % Monocytes % (0.0-12.0) % Eosinophils % (0.00-5.0) % Basophils % (0.0-0.4) % Absolute Granulocytes (1.4-6.9) x10^3/uL Basophils # (0-0.4) x10^3/uL PT (9.4-12.5) SECONDS INR (0.8-3.0) APTT (25.1-36.5) SECONDS Sodium (137-145) mmol/L Potassium (3.5-5.1) mmol/L Chloride (98-107) mmol/L Carbon Dioxide (22-30) mmol/L Anion Gap (5-15) MEQ/L BUN (9-20) mg/dL Creatinine (0.66-1.25) mg/dL Estimated GFR ML/MIN Glucose (74-106) mg/dL POC Glucometer (74 to 106) mg/dL Lactic Acid 1.8 (0.4-2.0) Calcium (8.4-10.2) mg/dL Magnesium (1.6-2.3) mg/dL Total Bilirubin (0.2-1.3) mg/dL AST (17-59) U/L ALT (0-50) U/L Alkaline Phosphatase (38-126) U/L Ammonia (9-30) umol/L Creatine Kinase (55-170) U/L Troponin I < 0.012 (0.000-0.034) ng/mL NT-Pro-B Natriuret Pep 397 (<300) pg/mL Serum Total Protein (6.3-8.2) g/dL Albumin (3.5-5.0) g/dL Lipase (23-300) U/L Vitamin B12 (239-931) pg/mL Folic Acid (2.76 - >20) ng/mL TSH 3rd Generation (0.47-4.68) mIU/L Urine Color (Yellow) Urine Appearance (Clear) Urine pH (4.6-8.0) Ur Specific [place] (1.005-1.030) Urine Protein (Negative) Urine Glucose (UA) (Negative) mg/dL Urine Ketones (Negative) Urine Blood (Negative) Urine Nitrite (Negative) Urine Bilirubin (Negative) Urine Urobilinogen (0.2) mg/dL Ur Leukocyte Esterase (Negative) U Hyaline Cast (Auto) (0-2) /LPF Urine Microscopic RBC (0-5) /HPF Urine Microscopic WBC (0-5) /HPF Ur Epithelial Cells (None Seen) /HPF Urine Bacteria (None Seen) /HPF Urine Culture Reflexed (NO) Urine Opiates Level (NEGATIVE) Ur Methadone (NEGATIVE) Urine Barbiturates (NEGATIVE) Ur Phencyclidine (PCP) (NEGATIVE) Urine Amphetamine (NEGATIVE) U Benzodiazepine Level (NEGATIVE) Urine Cocaine (NEGATIVE) Urine Marijuana (THC) (NEGATIVE) Ethyl Alcohol (0-10) mg/dL 05/02/23 05/02/23 05/02/23 Range/Units 16:48 19:30 19:30 WBC (4.0-10.5) x10^3/uL RBC (4.1-5.6) x10^6/uL Hgb (12.5-18.0) g/dL Hct (42-50) % MCV (78-100) fL MCH (26-32) pg MCHC (32-36) g/dL RDW (11.5-14.0) % Plt Count (150-450) x10^3/uL MPV (7.5-11.0) fL Gran % (36.0-66.0) % Immature Gran % (Auto) (0.00-0.4) % Nucleat RBC Rel Count (0.00-0.1) % Eos # (Auto) (0-0.5) x10^3/uL Immature Gran # (Auto) (0.00-0.03) x10^3u/L Absolute Lymphs (auto) (1.0-4.6) x10^3/uL Absolute Monos (auto) (0.0-1.3) x10^3/uL Absolute Nucleated RBC (0.00-0.01) x10^3u/L Lymphocytes % (24.0-44.0) % Monocytes % (0.0-12.0) % Eosinophils % (0.00-5.0) % Basophils % (0.0-0.4) % Absolute Granulocytes (1.4-6.9) x10^3/uL Basophils # (0-0.4) x10^3/uL PT (9.4-12.5) SECONDS INR (0.8-3.0) APTT (25.1-36.5) SECONDS Sodium (137-145) mmol/L Potassium (3.5-5.1) mmol/L Chloride (98-107) mmol/L Carbon Dioxide (22-30) mmol/L Anion Gap (5-15) MEQ/L BUN (9-20) mg/dL Creatinine (0.66-1.25) mg/dL Estimated GFR ML/MIN Glucose (74-106) mg/dL POC Glucometer 88 (74 to 106) mg/dL Lactic Acid (0.4-2.0) Calcium (8.4-10.2) mg/dL Magnesium (1.6-2.3) mg/dL Total Bilirubin (0.2-1.3) mg/dL AST (17-59) U/L ALT (0-50) U/L Alkaline Phosphatase (38-126) U/L Ammonia (9-30) umol/L Creatine Kinase (55-170) U/L Troponin I < 0.012 (0.000-0.034) ng/mL NT-Pro-B Natriuret Pep (<300) pg/mL Serum Total Protein (6.3-8.2) g/dL Albumin (3.5-5.0) g/dL Lipase (23-300) U/L Vitamin B12 209 L (239-931) pg/mL Folic Acid 6.96 (2.76 - >20) ng/mL TSH 3rd Generation 2.330 (0.47-4.68) mIU/L Urine Color (Yellow) Urine Appearance (Clear) Urine pH (4.6-8.0) Ur Specific [place] (1.005-1.030) Urine Protein (Negative) Urine Glucose (UA) (Negative) mg/dL Urine Ketones (Negative) Urine Blood (Negative) Urine Nitrite (Negative) Urine Bilirubin (Negative) Urine Urobilinogen (0.2) mg/dL Ur Leukocyte Esterase (Negative) U Hyaline Cast (Auto) (0-2) /LPF Urine Microscopic RBC (0-5) /HPF Urine Microscopic WBC (0-5) /HPF Ur Epithelial Cells (None Seen) /HPF Urine Bacteria (None Seen) /HPF Urine Culture Reflexed (NO) Urine Opiates Level (NEGATIVE) Ur Methadone (NEGATIVE) Urine Barbiturates (NEGATIVE) Ur Phencyclidine (PCP) (NEGATIVE) Urine Amphetamine (NEGATIVE) U Benzodiazepine Level (NEGATIVE) Urine Cocaine (NEGATIVE) Urine Marijuana (THC) (NEGATIVE) Ethyl Alcohol (0-10) mg/dL 05/02/23 05/02/23 Range/Units 19:30 21:25 WBC (4.0-10.5) x10^3/uL RBC (4.1-5.6) x10^6/uL Hgb (12.5-18.0) g/dL Hct (42-50) % MCV (78-100) fL MCH (26-32) pg MCHC (32-36) g/dL RDW (11.5-14.0) % Plt Count (150-450) x10^3/uL MPV (7.5-11.0) fL Gran % (36.0-66.0) % Immature Gran % (Auto) (0.00-0.4) % Nucleat RBC Rel Count (0.00-0.1) % Eos # (Auto) (0-0.5) x10^3/uL Immature Gran # (Auto) (0.00-0.03) x10^3u/L Absolute Lymphs (auto) (1.0-4.6) x10^3/uL Absolute Monos (auto) (0.0-1.3) x10^3/uL Absolute Nucleated RBC (0.00-0.01) x10^3u/L Lymphocytes % (24.0-44.0) % Monocytes % (0.0-12.0) % Eosinophils % (0.00-5.0) % Basophils % (0.0-0.4) % Absolute Granulocytes (1.4-6.9) x10^3/uL Basophils # (0-0.4) x10^3/uL PT (9.4-12.5) SECONDS INR (0.8-3.0) APTT (25.1-36.5) SECONDS Sodium (137-145) mmol/L Potassium (3.5-5.1) mmol/L Chloride (98-107) mmol/L Carbon Dioxide (22-30) mmol/L Anion Gap (5-15) MEQ/L BUN (9-20) mg/dL Creatinine (0.66-1.25) mg/dL Estimated GFR ML/MIN Glucose (74-106) mg/dL POC Glucometer 151 H (74 to 106) mg/dL Lactic Acid (0.4-2.0) Calcium (8.4-10.2) mg/dL Magnesium (1.6-2.3) mg/dL Total Bilirubin (0.2-1.3) mg/dL AST (17-59) U/L ALT (0-50) U/L Alkaline Phosphatase (38-126) U/L Ammonia < 9 L (9-30) umol/L Creatine Kinase (55-170) U/L Troponin I (0.000-0.034) ng/mL NT-Pro-B Natriuret Pep (<300) pg/mL Serum Total Protein (6.3-8.2) g/dL Albumin (3.5-5.0) g/dL Lipase (23-300) U/L Vitamin B12 (239-931) pg/mL Folic Acid (2.76 - >20) ng/mL TSH 3rd Generation (0.47-4.68) mIU/L Urine Color (Yellow) Urine Appearance (Clear) Urine pH (4.6-8.0) Ur Specific [place] (1.005-1.030) Urine Protein (Negative) Urine Glucose (UA) (Negative) mg/dL Urine Ketones (Negative) Urine Blood (Negative) Urine Nitrite (Negative) Urine Bilirubin (Negative) Urine Urobilinogen (0.2) mg/dL Ur Leukocyte Esterase (Negative) U Hyaline Cast (Auto) (0-2) /LPF Urine Microscopic RBC (0-5) /HPF Urine Microscopic WBC (0-5) /HPF Ur Epithelial Cells (None Seen) /HPF Urine Bacteria (None Seen) /HPF Urine Culture Reflexed (NO) Urine Opiates Level (NEGATIVE) Ur Methadone (NEGATIVE) Urine Barbiturates (NEGATIVE) Ur Phencyclidine (PCP) (NEGATIVE) Urine Amphetamine (NEGATIVE) U Benzodiazepine Level (NEGATIVE) Urine Cocaine (NEGATIVE) Urine Marijuana (THC) (NEGATIVE) Ethyl Alcohol (0-10) mg/dL Radiology Exams: Radiology Procedures Category Date Time Status ABDOMEN AND PELVIS W CONTRAST [CT] Stat Exams 05/02/23 11:31 Completed CERVICAL SPINE WO CONTRAST [CT] Stat Exams 05/02/23 11:30 Completed CHEST WITH CONTRAST [CT] Stat Exams 05/02/23 11:32 Completed ECHO W/2D AND DOPPLER [US] Routine Exams 05/03/23 08:00 Ordered FACIAL BONES WO CONTRAST [CT] Stat Exams 05/02/23 11:30 Completed HEAD WITHOUT CONTRAST [CT] Stat Exams 05/02/23 11:31 Completed KNEE (3 VIEWS) Stat Exams 05/02/23 11:35 Completed MRI BRAIN WITH CONTRAST [MRI] Routine Exams 05/03/23 14:00 Ordered Assessment/Plan (1) Altered mental status Current Visit: Yes Status: Acute Assessment & Plan: -Blood glucose levels WNL upon presentation -Supplemental oxygen with goal >92%, baseline is RA -CMP, CBC, MG daily TSH, B12/Fol, cortisol, ammonia level -Head CT with no acute etiology, of note additional findings of remote lacunar infarct right basal ganglia -UDS/ ETOH negative, patient states no h/o smoking alcohol or drug use -LA wnl -UA negative -Will obtain MRI with neurology consult -Medication check for underlying etiology once med rec is obtained 05/03: -It appears patient has not been taking meds per [facility] nurse, she has found pill container with last weeks meds full -MRI pending Code(s): R41.82 - ALTERED MENTAL STATUS, UNSPECIFIED (2) Bradycardia Current Visit: Yes Status: Acute Assessment & Plan: -noted, will review medications once rec completed -Continuous tele Code(s): R00.1 - BRADYCARDIA, UNSPECIFIED (3) Leukocytosis Current Visit: Yes Status: Acute Assessment & Plan: -Unknown etiology, does not appear to be an infectious cause, may be secondary to recent fall/inflammation, will continue to monitor and trend 05/03: -WBC downtrending Code(s): D72.829 - ELEVATED WHITE BLOOD CELL COUNT, UNSPECIFIED (4) Hypokalemia Current Visit: Yes Status: Acute Assessment & Plan: -potassium low at 3.4, will replenish -Tele 05/03: -resolved Code(s): E87.6 - HYPOKALEMIA (5) Atrial fibrillation Current Visit: Yes Status: Acute Assessment & Plan: -Patient states he has h/o arrhytmia and is on metoprolol/ eliquis, nurse to obtain med rec -HR controlled although AFIB on tele Code(s): I48.91 - UNSPECIFIED ATRIAL FIBRILLATION (6) Generalized weakness Current Visit: No Status: Resolved Assessment & Plan: -PT/OT Code(s): R53.1 - WEAKNESS (7) Fall Current Visit: Yes Status: Acute Assessment & Plan: -Imaging of knee/head/cervical spine with noted edema, otherwise unremarkable -Med check -Orthostatic vitals -supportive care with pain control/RICE -PT/OT eval Code(s): W19.XXXA - UNSPECIFIED FALL, INITIAL ENCOUNTER (8) Syncope and collapse Current Visit: Yes Status: Acute Assessment & Plan: -Continuous tele -CT head negative for acute etiology, MRI brain pending/ neuro consult pending -ECHO -Carotid duplex -Orthostatic vitals -Medication review -PT/OT Code(s): R55 - SYNCOPE AND COLLAPSE Code(s): R41.82 - ALTERED MENTAL STATUS, UNSPECIFIED (2) Bradycardia Current Visit: Yes Status: Acute Code(s): R00.1 - BRADYCARDIA, UNSPECIFIED (3) Leukocytosis Current Visit: Yes Status: Acute Code(s): D72.829 - ELEVATED WHITE BLOOD CELL COUNT, UNSPECIFIED (4) Hypokalemia Current Visit: Yes Status: Acute Code(s): E87.6 - HYPOKALEMIA (5) Atrial fibrillation Current Visit: Yes Status: Acute Code(s): I48.91 - UNSPECIFIED ATRIAL FIBRILLATION (6) Generalized weakness Current Visit: No Status: Resolved Code(s): R53.1 - WEAKNESS (7) Fall Current Visit: Yes Status: Acute Code(s): W19.XXXA - UNSPECIFIED FALL, INITIAL ENCOUNTER (8) Syncope and collapse Current Visit: Yes Status: Acute Code(s): R55 - SYNCOPE AND COLLAPSE
[2023-05-03 05:38] LABS: ALBUMIN 3.4 g/dL (3.5-5.0); ANION GAP 12.4 MEQ/L (5-15); BILIRUBIN,TOTAL 1.1 mg/dL (0.2-1.3); Calcium 8.4 mg/dL (8.4-10.2); Creatinine 1 0.9 mg/dL (0.66-1.25); EST GLOMERULAR FILTRATION RATE 85.8 ML/MIN; Potassium 3.9 mmol/L (3.5-5.1); Total Protein 6.9 g/dL (6.3-8.2)
[2023-05-03] MEDS: NORVASC 5 MG PO SCH (09:10)
[2023-05-03] MEDS: hydroDIURIL 25 MG PO SCH (09:10)
[2023-05-03] MEDS: ELIQUIS 2.5 MG TABLET PO SCH ×2 (09:10→23:35)
[2023-05-03] MEDS: Toprol Xl 50 MG PO SCH (09:10)
[2023-05-03] MEDS: Zestril 20 MG PO SCH ×2 (09:10→23:35)
[2023-05-03 10:39] LABS: ALBUMIN 3.7 g/dL (3.5-5.0); ANION GAP 15.8 MEQ/L (5-15); BILIRUBIN,TOTAL 1.1 mg/dL (0.2-1.3); Calcium 8.6 mg/dL (8.4-10.2); Creatinine 1 0.94 mg/dL (0.66-1.25); EST GLOMERULAR FILTRATION RATE 81.4 ML/MIN; Total Protein 7.4 g/dL (6.3-8.2)
--- NOTE | 2023-05-03 15:28 | XRAY ---
Indication: Altered mental status. Status post fall with posterior head injury. Sagittal, coronal, and axial MRI brain performed using pre and post T1, T2, FLAIR, diffusion, and ADC sequences as ordered. 25 cc Dotarem contrast used. Comparison: None Age-appropriate global atrophy and moderate periventricular degenerative micro-ischemia signal bilaterally. No acute intracranial hemorrhage, abnormal extra-axial fluid collection, or mass effect. Diffusion images demonstrates punctate restricted signal left mid centrum semiovale near the vertex, right frontal lobe, and adjacent to right trigone all favoring acute micro-ischemia. Following gadolinium, there is no abnormal enhancing intra or extra-axial mass. Fourth ventricle is midline without hydrocephalus. 7/8 cranial nerve complex bilaterally symmetric. Normal flow void signal within the major intracerebral circulation. Normal appearing cranial cervical junction and sella turcica. Visualized paranasal sinuses are clear. Impression: Atrophy and degenerative micro-ischemia within normal limits for patient's age. Acute punctate micro-ischemia left centrum semiovale, right frontal lobe, and adjacent to right trigone. No acute hemorrhage/mass effect. Negative contrast exam.
[2023-05-04 05:07] LABS: Absolute Neutrophil Ct (ANC) 10.98 x10^3/uL (1.4-6.9); BASOPHIL % 0.3 % (0.0-0.4); Basophil (Absolute #) 0.04 x10^3/uL (0-0.4); Eosinophil % 2.1 % (0.00-5.0); Hematocrit 46.7 % (42-50); Hemoglobin 15.3 g/dL (12.5-18.0); IMMATURE GRAN # 0.08 x10^3u/L (0.00-0.03); IMMATURE GRAN % 0.6 % (0.00-0.4); Lymphocyte (Absolute #) 1.93 x10^3/uL (1.0-4.6); Lymphocytes % 13.6 % (24.0-44.0); Mean Cell Volume 90.5 fL (78-100); Mean Corpuscular Hemoglobin 29.7 pg (26-32); Mean Corpuscular Hgb Concent. 32.8 g/dL (32-36); Mean Platelet Volume 9.6 fL (7.5-11.0); Monocyte (Absolute #) 0.84 x10^3/uL (0.0-1.3); Monocytes % 5.9 % (0.0-12.0); Neutrophil % 77.5 % (36.0-66.0); Platelet Count 303 x10^3/uL (150-450); Red Blood Count 5.16 x10^6/uL (4.1-5.6); Red Cell Distribution Width 14.3 % (11.5-14.0); White Blood Count 14.2 x10^3/uL (4.0-10.5)
[2023-05-04 05:21] LABS: ALBUMIN 3.5 g/dL (3.5-5.0); ANION GAP 10.9 MEQ/L (5-15); Calcium 8.8 mg/dL (8.4-10.2); Creatinine 1 1.01 mg/dL (0.66-1.25); EST GLOMERULAR FILTRATION RATE 74.7 ML/MIN; Potassium 3.5 mmol/L (3.5-5.1)
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
[2023-05-04] MEDS: Zestril 20 MG PO SCH ×2 (10:24→22:06)
[2023-05-04] MEDS: ELIQUIS 2.5 MG TABLET PO SCH ×2 (10:24→22:06)
[2023-05-04] MEDS: Toprol Xl 50 MG PO SCH (10:24)
[2023-05-04] MEDS: Lasix 40 MG/4 ML IV SCH (10:27)
[2023-05-04] MEDS: Apresoline 25 MG TABLET PO SCH ×3 (10:27→22:06)
[2023-05-04] MEDS: NORVASC 5 MG PO SCH (10:43)
[2023-05-04] MEDS: hydroDIURIL 25 MG PO SCH (10:43)
--- NOTE | 2023-05-04 14:32 | ECHO ---
DATE OF PROCEDURE: 05/03/2023 CLINICAL INFORMATION: Syncope. The M-mode 2D, and Doppler echocardiogram including color flow Doppler have limited windows due to morbid obesity. The left ventricle is normal in size. There is no thrombus present. There is severe asymmetric left ventricular hypertrophy involving the septum. The left ventricular systolic function is mildly decreased with an ejection fraction estimated at 40 to 45%. The right ventricle is dilated. There is moderate right ventricular dysfunction. The left atrium is mildly dilated. The interatrial septum is intact. The right atrium is dilated. The aortic valve opens well. It is trileaflet. There is no aortic regurgitation. There is papillary muscle dysfunction involving the mitral valve associated with mild to moderate mitral regurgitation. There is mild tricuspid regurgitation. The right ventricular systolic pressure is calculated to be 18 mm of [place]. The pulmonic valve is not well visualized. The aortic root is normal. There is no pericardial effusion present. IMPRESSION: 1) MILD DECREASE IN LEFT VENTRICULAR SYSTOLIC FUNCTION. 2) SEVERE ASYMMETRIC LEFT VENTRICULAR HYPERTROPHY INVOLVING THE SEPTUM. 3) DILATED RIGHT VENTRICLE. 4) MODERATE RIGHT VENTRICULAR DYSFUNCTIOM. 5) MILD LEFT ATRIAL DILATATION. 6) MILD TO MODERATE MITRAL REGURGITATION. 7) MILD TRICUSPID REGURGITATION. 8) NORMAL RIGHT VENTRICULAR SYSTOLIC PRESSURE.
--- NOTE | 2023-05-04 16:31 | XRAY ---
Indication: Bilateral leg edema. Two-dimensional sonogram and color Doppler imaging of the major venous vessels of the left and right leg performed. Comparison: None No thrombus seen in the examined deep venous vessels of the left and right leg including greater saphenous vein. Veins demonstrate normal compressibility. Venous waveforms are normal with and without augmentation. Impression: Left and right legs negative for DVT.
[2023-05-04] MEDS: VITAMIN B-12 100 MCG PO SCH (18:29)
[2023-05-04] MEDS: TYLENOL 325 MG PO PRN (22:06)
[2023-05-05 05:01] LABS: Absolute Neutrophil Ct (ANC) 12.73 x10^3/uL (1.4-6.9); BASOPHIL % 0.4 % (0.0-0.4); Basophil (Absolute #) 0.06 x10^3/uL (0-0.4); Eosinophil % 1.1 % (0.00-5.0); Eosinophil (Absolute #) 0.18 x10^3/uL (0-0.5); Hematocrit 46.4 % (42-50); Hemoglobin 15.3 g/dL (12.5-18.0); IMMATURE GRAN # 0.08 x10^3u/L (0.00-0.03); IMMATURE GRAN % 0.5 % (0.00-0.4); Lymphocyte (Absolute #) 2.24 x10^3/uL (1.0-4.6); Lymphocytes % 13.7 % (24.0-44.0); Mean Platelet Volume 9.7 fL (7.5-11.0); Monocyte (Absolute #) 1.03 x10^3/uL (0.0-1.3); Monocytes % 6.3 % (0.0-12.0); Platelet Count 293 x10^3/uL (150-450); Red Cell Distribution Width 14.1 % (11.5-14.0); White Blood Count 16.3 x10^3/uL (4.0-10.5)
--- NOTE | 2023-05-05 05:20 | PCM.NOTE ---
Date and Time: 05/05/23 0518 Subjective Assessment: HPI:Patient admitted with recurrent falls and altered mental status. According to [facility] nurse and patient's son he is normally alert and oriented but noncompliant with medications. Notably he was recently hospitalized at [facility] for UTI. He was sent home with oral antibiotics but it is very possible he did not take them. The patient has poor memory and is a poor historian. He sustained a scalp laceration and bruising of his face as well as a left knee injury. He complains of back pain. He denies other symptoms but history cannot be relied on. Exam shows the injuries but little else. WBC is mildly elevated. UA looks benign. CT of head is unremarkable. CT of chest and various xrays were negative. MRI demonstrating atrophy and degenerative micro-ischemia within normal limits for patient's age. Acute punctate micro-ischemia left centrum semiovale, right frontal lobe, and adjacent to right trigone. No acute hemorrhage/mass effect. Per neurology recommendations, cardiology has been consulted to evaluate the need of SALVATORE as well as psych to evaluate competency as he lives home alone. 05/03/23: Patient examined bedside. A&O x 3 this morning. States he is feeling better. Plan for MRI this afternoon with neuro consult following. 05/04/23: Patient up in chair this morning. Remains A& O x 3. Discussed MRI findings. Plan is for cardiac evaluation today as well as [facility] for competency eval. Noted increased BLE edema this morning. Encouraged patient to elevate legs. Will obtain doppler of BLE, he may benefit from compression dressings. Will discontinue his HCTZ/Amlodipine. Add Lasix and hydralazine. 05/05: Met with patient. Seems more alert this morning. A&O x 3. Endorses right knee pain 3/10 on numerical scale. SNF placement discussed with patient. He currently resides alone. He states he will consider it. Cardiology consulted with recomme ndations to increase eliquis to 5mg bid with a 14 day event monitor on discharge. WBC is elevated this morning without a clear etiology. Patient denies sob, cough, fevers, recent sick contacts. Will repeat his UA today. Resp viral panel is negative. Repeat CXR negative. - Review of Systems Constitutional: No Symptoms Eyes: Eye Pain (Right orbital hematoma right posterior scalp laceration) Ears, Nose, & Throat: No Symptoms Respiratory: No Symptoms Cardiac: Edema Abdominal/Gastrointestinal: No Symptoms Genitourinary Symptoms: No Symptoms Musculoskeletal: Joint Pain Skin: No Symptoms Neurological: No Symptoms Psychological: No Symptoms Endocrine: No Symptoms Hematologic/Lymphatic: No Symptoms Objective Exam General Appearance: no apparent distress Neurologic Exam: alert, oriented x 3, cooperative Skin Exam: normal color Wound Assessment: Skin/Wound Assessment Wound/Incision Assessment Start: 05/02/23 18:37 Text: Status: Active Freq: Q6H Protocol: Document 05/05/23 02:00 MP (Rec: 05/05/23 03:08 MP [id number]) Wound/Incision Assessment Right Posterior Head Wound Assessment Shift Assessment Wound Type Laceration Length (cm) (cm) 0.5 Comment scabbed over Wound Photo Photo Taken No Eye Exam: PERRL, other (Right orbital hematoma/ posterior right scalp laceration) Ears, Nose, Throat Exam: normal ENT inspection Neck Exam: normal inspection Respiratory Exam: normal breath sounds, lungs clear Cardiovascular Exam: regular rate/rhythm, normal heart sounds, edema (BLE +2, 4+ pedal pitting) Gastrointestinal/Abdomen Exam: soft, normal bowel sounds Extremity Exam: limited range of motion (right leg), pedal edema, swelling Back Exam: normal inspection Male Genitalia Exam: deferred Rectal Exam: deferred OBJECTIVE DATA Vital Signs: Vital Signs - 24 hr Temp Pulse Resp BP Pulse Ox 05/05/23 04:00 98.2 F 63 18 145/70 93 L 05/05/23 00:00 98.3 F 65 20 164/77 96 05/04/23 20:00 99.4 F 58 L 20 164/77 98 05/04/23 16:00 98.6 F 59 L 18 138/68 97 05/04/23 11:47 97.7 F 56 L 18 136/66 97 05/04/23 06:49 97.6 F 60 18 181/81 96 Pain Assessment - Last Documented Pain Intensity 3 Pain Scale Used 0-10 Pain Scale Intake and Output: Intake & Output 05/02/23 05/03/23 05/04/23 05/05/23 11:59 11:59 11:59 11:59 Intake Total 960 1440 1460 Output Total 1370 1060 2350 Balance -410 380 -890 Weight 139.7 kg 140 kg Lab Results: Lab Results-Last 24 Hours 05/03/23 05/04/23 05/04/23 Range/Units 05:04 04:58 04:58 WBC (4.0-10.5) x10^3/uL RBC (4.1-5.6) x10^6/uL Hgb (12.5-18.0) g/dL Hct (42-50) % MCV (78-100) fL MCH (26-32) pg MCHC (32-36) g/dL RDW (11.5-14.0) % Plt Count (150-450) x10^3/uL MPV (7.5-11.0) fL Gran % (36.0-66.0) % Immature Gran % (Auto) (0.00-0.4) % Nucleat RBC Rel Count (0.00-0.1) % Eos # (Auto) (0-0.5) x10^3/uL Immature Gran # (Auto) (0.00-0.03) x10^3u/L Absolute Lymphs (auto) (1.0-4.6) x10^3/uL Absolute Monos (auto) (0.0-1.3) x10^3/uL Absolute Nucleated RBC (0.00-0.01) x10^3u/L Lymphocytes % (24.0-44.0) % Monocytes % (0.0-12.0) % Eosinophils % (0.00-5.0) % Basophils % (0.0-0.4) % Absolute Granulocytes (1.4-6.9) x10^3/uL Basophils # (0-0.4) x10^3/uL Sodium 135 L (137-145) mmol/L Potassium 3.5 (3.5-5.1) mmol/L Chloride 102 (98-107) mmol/L Carbon Dioxide 25 (22-30) mmol/L Anion Gap 10.9 (5-15) MEQ/L BUN 15 (9-20) mg/dL Creatinine 1.01 (0.66-1.25) mg/dL Estimated GFR 74.7 ML/MIN Glucose 133 H (74-106) mg/dL Calcium 8.8 (8.4-10.2) mg/dL Magnesium 2.0 (1.6-2.3) mg/dL Total Bilirubin 1.00 (0.2-1.3) mg/dL AST 22 (17-59) U/L ALT 16 (0-50) U/L Alkaline Phosphatase 97 (38-126) U/L Serum Total Protein 7.0 (6.3-8.2) g/dL Albumin 3.5 (3.5-5.0) g/dL Cortisol AM Sample 22.2 H (6.2-19.4) ug/dL 05/05/23 Range/Units 04:26 WBC 16.3 H (4.0-10.5) x10^3/uL RBC 5.10 (4.1-5.6) x10^6/uL Hgb 15.3 (12.5-18.0) g/dL Hct 46.4 (42-50) % MCV 91.0 (78-100) fL MCH 30.0 (26-32) pg MCHC 33.0 (32-36) g/dL RDW 14.1 H (11.5-14.0) % Plt Count 293 (150-450) x10^3/uL MPV 9.7 (7.5-11.0) fL Gran % 78.0 H (36.0-66.0) % Immature Gran % (Auto) 0.5 H (0.00-0.4) % Nucleat RBC Rel Count 0.0 (0.00-0.1) % Eos # (Auto) 0.18 (0-0.5) x10^3/uL Immature Gran # (Auto) 0.08 H (0.00-0.03) x10^3u/L Absolute Lymphs (auto) 2.24 (1.0-4.6) x10^3/uL Absolute Monos (auto) 1.03 (0.0-1.3) x10^3/uL Absolute Nucleated RBC 0.00 (0.00-0.01) x10^3u/L Lymphocytes % 13.7 L (24.0-44.0) % Monocytes % 6.3 (0.0-12.0) % Eosinophils % 1.1 (0.00-5.0) % Basophils % 0.4 (0.0-0.4) % Absolute Granulocytes 12.73 H (1.4-6.9) x10^3/uL Basophils # 0.06 (0-0.4) x10^3/uL Sodium (137-145) mmol/L Potassium (3.5-5.1) mmol/L Chloride (98-107) mmol/L Carbon Dioxide (22-30) mmol/L Anion Gap (5-15) MEQ/L BUN (9-20) mg/dL Creatinine (0.66-1.25) mg/dL Estimated GFR ML/MIN Glucose (74-106) mg/dL Calcium (8.4-10.2) mg/dL Magnesium (1.6-2.3) mg/dL Total Bilirubin (0.2-1.3) mg/dL AST (17-59) U/L ALT (0-50) U/L Alkaline Phosphatase (38-126) U/L Serum Total Protein (6.3-8.2) g/dL Albumin (3.5-5.0) g/dL Cortisol AM Sample (6.2-19.4) ug/dL Radiology Exams: Radiology Procedures Category Date Time Status ECHO W/2D AND DOPPLER [US] Routine Exams 05/03/23 08:00 Draft MRI BRAIN WITH CONTRAST [MRI] Routine Exams 05/03/23 14:00 Completed VENOUS BILATERAL EXTREMITY [US] Stat Exams 05/04/23 14:50 Completed Multi-Disciplinary Progress Notes: Multi-Disciplinary Progress Notes 05/04/23 16:00 Physical Therapy Note by Laly Quiles UPON PT ARRIVAL PATIENT WAS SUPINE IN BED WITH PILLOWS LONGWAYS UNDER EACH LE. WHEN ASKING IF PATIENT WOULD GO FOR A WALK, HE DECLINED STATING HIS L KNEE WAS IN 10 OUT OF 10 PAIN (WITH 10 = EXTREME). WHEN OFFERING TO COMPLETE EXERCISES IN SUPINE, PT STATED HE WAS WILLING. AFTER ASKING PT TO START WITH MOVING HIS ANKLE, HE STATED HE WOULD LIKE A CLEAN BED SHEET HE DIDN'T GET TO HIS BEDSIDE URINAL IN TIME AND PEED ON HIMSELF LITTLE. PT AGREED TO STAND TO GET BEDDING CHANGED. PT COMPLAINED OF PAIN WITH MOVING LEGS, REQUIRING MOD ASSIST X2 FOR BED MOBILITY. REQUIRING SAFETY CUES FOR [id number], MIN ASSIST. PT ABLE TO AMBULATE , CGA X 50 FT WITH RW. SAFETY CUES GIVEN FOR PT TO RETURN TO BED, REQURING ASSIST WITH BED MOBILITY. PT WAS ABLE TO COMPLETE A COUPLE R SIDE SINGLE LEG BRIDGES TO GET GOWN OUT FROM UNDER HIM WITH HEAVY CUING. PT'S SESSION ENDED WITH PT SUPINE IN BED, FOR RADIOLOGY TO COMPLETE TESTING. Initialized on 05/04/23 16:00 - END OF NOTE 05/04/23 12:02 Occupational Therapy Note by Nadia Quinones Occupational Therapy Treatment: 11:35-11:58 Upon OT arrival, patient sitting up in the recliner with feet on floor and reports "I'm really tired, you can't get any sleep around here". Patient is agreeable to session, and OT observes significant edema in BLE compared to last session. Patient requires full assist (dependent) for donning bilateral socks however he does not wear socks at home, and significant LB weakness due to increased edema in legs/feet. Bill completes sit<>stand t/f with CGA requiring 3 attempts to standing up then manages urinal with SBA. He requests to sit back down and complete light grooming tasks at the sink due to weakness and fatigue. He requires set up assist and managing cap on toothpaste for oral care. At end of session, OT props patient's BLE with recliner foot rest and pillow under left knee (rates 5/10 pain). Due to increase fatigue, weakness, and assistance for set up and ensure safety insight, recommending further skilled therapy. Initialized on 05/04/23 12:02 - END OF NOTE 05/04/23 11:56 Case Management Note by Kerrie Luciano FURTHER DC PLANNING PAUSED AT THIS TIME- PSYCH EVAL ORDERED FOR COMPETENCY AT THIS TIME Initialized on 05/04/23 11:56 - END OF NOTE Assessment/Plan (1) Syncope and collapse Current Visit: Yes Status: Acute Code(s): R55 - SYNCOPE AND COLLAPSE (2) Altered mental status Current Visit: Yes Status: Acute Assessment & Plan: -Blood glucose levels WNL upon presentation -Supplemental oxygen with goal >92%, baseline is RA -CMP, CBC, MG daily TSH, B12/Fol, cortisol, ammonia level -Head CT with no acute etiology, of note additional findings of remote lacunar infarct right basal ganglia -UDS/ ETOH negative, patient states no h/o smoking alcohol or drug use -LA wnl -UA negative -Will obtain MRI with neurology consult -Medication check for underlying etiology once med rec is obtained 05/03: -It appears patient has not been taking meds per [facility] nurse, she has found pill container with last weeks meds full -MRI pending 05/04: -MRI showing Atrophy and degenerative micro-ischemia within normal limits for patient's age. Acute punctate micro-ischemia left centrum semiovale, right frontal lobe, and adjacent to right trigone. No acute hemorrhage/mass effect. -Neurology recs for echo/cards consult /psych eval for competency -TSH, ammonia, bnp all wnl -B12 is low at 209, will start b12 1000mcg daily 05/05: -Unable to obtain competency eval -Patient A&O x 3 on exam Code(s): R41.82 - ALTERED MENTAL STATUS, UNSPECIFIED (2) Bradycardia Current Visit: Yes Status: Acute Assessment & Plan: -noted, will review medications once rec completed -Continuous tele 05/05: -resolved -continue tele Code(s): R00.1 - BRADYCARDIA, UNSPECIFIED (3) Leukocytosis Current Visit: Yes Status: Acute Assessment & Plan: -Unknown etiology, does not appear to be an infectious cause, may be secondary to recent fall/inflammation, will continue to monitor and trend 05/03: -WBC downtrending 05/05: -WBC uptrending, unknown etiology -BCult x 2 obtained -ESR elevated -Procal WNL -Lactic initially WNL, will repeat -CXR neg for infectious process -Will repeat UA Code(s): D72.829 - ELEVATED WHITE BLOOD CELL COUNT, UNSPECIFIED (4) Hypokalemia Current Visit: Yes Status: Acute Assessment & Plan: -potassium low at 3.4, will replenish -Tele 05/03: -resolved Code(s): E87.6 - HYPOKALEMIA (5) Atrial fibrillation Current Visit: Yes Status: Acute Assessment & Plan: -Patient states he has h/o arrhytmia and is on metoprolol/ eliquis, nurse to obtain med rec -HR controlled although AFIB on tele 05/04: -Home meds continued 05/05: -Cards increased eliquis to 5mg bid Code(s): I48.91 - UNSPECIFIED ATRIAL FIBRILLATION (6) Generalized weakness Current Visit: No Status: Resolved Assessment & Plan: -PT/OT Code(s): R53.1 - WEAKNESS (7) Fall Current Visit: Yes Status: Acute Assessment & Plan: -Imaging of knee/head/cervical spine with noted edema, otherwise unremarkable -Med check -Orthostatic vitals -supportive care with pain control/RICE -PT/OT eval 05/05: -Recommend SNF placement will consult CM Code(s): W19.XXXA - UNSPECIFIED FALL, INITIAL ENCOUNTER (8) Syncope and collapse Current Visit: Yes Status: Acute Assessment & Plan: -Continuous tele -CT head negative for acute etiology, MRI brain pending/ neuro consult pending -ECHO -Carotid duplex -Orthostatic vitals -Medication review -PT/OT 05/04: -MRI showing Atrophy and degenerative micro-ischemia within normal limits for patient's age. Acute punctate micro-ischemia left centrum semiovale, right frontal lobe, and adjacent to right trigone. No acute hemorrhage/mass effect. -Neurology recs for echo/cards consult /psych eval for competency -TSH, ammonia, bnp all wnl -B12 is low at 209, will start b12 1000mcg daily #Hypertension -HCTZ/amlodipine discontinued, will start hydralazine #BLE edema -Lasix 40 daily -Venous doppler #CHF -Cardiology consulted appreciate recs -Lasix 40 daily -ECHO showing IMPRESSION: 1) MILD DECREASE IN LEFT VENTRICULAR SYSTOLIC FUNCTION. 2) SEVERE ASYMMETRIC LEFT VENTRICULAR HYPERTROPHY INVOLVING THE SEPTUM. 3) DILATED RIGHT VENTRICLE. 4) MODERATE RIGHT VENTRICULAR DYSFUNCTIOM. 5) MILD LEFT ATRIAL DILATATION. 6) MILD TO MODERATE MITRAL REGURGITATION. 7) MILD TRICUSPID REGURGITATION. 8) NORMAL RIGHT VENTRICULAR SYSTOLIC PRESSURE Code(s): R55 - SYNCOPE AND COLLAPSE Code(s): R41.82 - ALTERED MENTAL STATUS, UNSPECIFIED Code(s): R41.82 - ALTERED MENTAL STATUS, UNSPECIFIED (3) Bradycardia Current Visit: Yes Status: Acute Code(s): R00.1 - BRADYCARDIA, UNSPECIFIED (4) Leukocytosis Current Visit: Yes Status: Acute Code(s): D72.829 - ELEVATED WHITE BLOOD CELL COUNT, UNSPECIFIED (5) Hypokalemia Current Visit: Yes Status: Acute Code(s): E87.6 - HYPOKALEMIA (6) Atrial fibrillation Current Visit: Yes Status: Acute Code(s): I48.91 - UNSPECIFIED ATRIAL FIBRILLATION (7) Generalized weakness Current Visit: No Status: Resolved Code(s): R53.1 - WEAKNESS (8) Fall Current Visit: Yes Status: Acute Code(s): W19.XXXA - UNSPECIFIED FALL, INITIAL ENCOUNTER (9) Edema of both lower extremities Current Visit: Yes Status: Acute Code(s): R60.0 - LOCALIZED EDEMA (10) CHF (congestive heart failure), NYHA class III Current Visit: No Status: Chronic Qualifiers: Code(s): I50.9 - HEART FAILURE, UNSPECIFIED (11) HTN (hypertension) Current Visit: No Status: Chronic Code(s): I10 - ESSENTIAL (PRIMARY) HYPERTENSION
[2023-05-05 05:30] LABS: ALBUMIN 3.5 g/dL (3.5-5.0); Calcium 8.7 mg/dL (8.4-10.2); Creatinine 1 0.93 mg/dL (0.66-1.25); EST GLOMERULAR FILTRATION RATE 82.5 ML/MIN; Potassium 3.5 mmol/L (3.5-5.1); Total Protein 6.9 g/dL (6.3-8.2)
[2023-05-05 09:04] LABS: INFLUENZA A NEGATIVE (NEGATIVE); INFLUENZA B NEGATIVE (NEGATIVE); RESPIRATORY SYNCTIAL VIRUS NEGATIVE (NEGATIVE); SARS-CoV-2 Xpert Express NEGATIVE (NEGATIVE)
[2023-05-05] MEDS: ELIQUIS 2.5 MG TABLET PO SCH ×2 (10:10→22:15)
[2023-05-05] MEDS: Toprol Xl 50 MG PO SCH (10:10)
[2023-05-05] MEDS: VITAMIN B-12 100 MCG PO SCH (10:10)
[2023-05-05] MEDS: Apresoline 25 MG TABLET PO SCH ×3 (10:10→22:15)
[2023-05-05] MEDS: Zestril 20 MG PO SCH ×2 (10:10→22:15)
[2023-05-05] MEDS: Lasix 40 MG/4 ML IV SCH (10:11)
--- NOTE | 2023-05-05 10:19 | XRAY ---
Indication: Leukocytosis. Short of breath. Comparison: June 13, 2020 Portable chest is limited as left lateral base is not completely included. Right lung and visualized left mid-upper lung grossly clear. Heart remains grossly enlarged. Bony thorax intact.
[2023-05-05 15:48] LABS: Appearance Cloudy (Clear); Bacteria Many /HPF (None Seen); Bilirubin Negative (Negative); Blood Moderate (Negative); Epithelial Cells None Seen /HPF (None Seen); Glucose, Urine Negative (Negative); Ketones Negative (Negative); Leukocyte Esterase Large (Negative); Nitrite Positive (Negative); Ph 5.5 (4.6-8.0); Protein,Urine Dip 30 (Negative); RBC 21-50 /HPF (0-5); Specific Gravity 1.015 (1.005-1.030); WBC >100 /HPF (0-5)
[2023-05-05 16:12] LABS: ADD URINE CULTURE? YES (NO)
[2023-05-05] MEDS: ROCEPHIN 2 Gm-D5w 50ML BAG** 2 G/50 ML IVPB IV SCH (16:46)
[2023-05-06 04:57] LABS: BASOPHIL % 0.4 % (0.0-0.4); Basophil (Absolute #) 0.07 x10^3/uL (0-0.4); Eosinophil % 1.2 % (0.00-5.0); Hematocrit 43.7 % (42-50); Hemoglobin 14.6 g/dL (12.5-18.0); IMMATURE GRAN # 0.11 x10^3u/L (0.00-0.03); IMMATURE GRAN % 0.7 % (0.00-0.4); Lymphocyte (Absolute #) 2.28 x10^3/uL (1.0-4.6); Lymphocytes % 13.9 % (24.0-44.0); Mean Cell Volume 90.3 fL (78-100); Mean Corpuscular Hemoglobin 30.2 pg (26-32); Mean Corpuscular Hgb Concent. 33.4 g/dL (32-36); Monocyte (Absolute #) 0.89 x10^3/uL (0.0-1.3); Monocytes % 5.4 % (0.0-12.0); Neutrophil % 78.4 % (36.0-66.0); Platelet Count 311 x10^3/uL (150-450); Red Blood Count 4.84 x10^6/uL (4.1-5.6); Red Cell Distribution Width 14.5 % (11.5-14.0); White Blood Count 16.5 x10^3/uL (4.0-10.5)
[2023-05-06 05:32] LABS: ALBUMIN 3.1 g/dL (3.5-5.0); BILIRUBIN,TOTAL 1.2 mg/dL (0.2-1.3); Calcium 8.2 mg/dL (8.4-10.2); Creatinine 1 0.82 mg/dL (0.66-1.25); EST GLOMERULAR FILTRATION RATE 88.3 ML/MIN; Potassium 3.7 mmol/L (3.5-5.1); Total Protein 6.5 g/dL (6.3-8.2)
--- NOTE | 2023-05-06 05:32 | PCM.NOTE ---
Date and Time: 05/06/23 0528 Subjective Assessment: HPI:Patient admitted with recurrent falls and altered mental status. According to [facility] nurse and patient's son he is normally alert and oriented but noncompliant with medications. Notably he was recently hospitalized at [facility] for UTI. He was sent home with oral antibiotics but it is very possible he did not take them. The patient has poor memory and is a poor historian. He sustained a scalp laceration and bruising of his face as well as a left knee injury. He complains of back pain. He denies other symptoms but history cannot be relied on. Exam shows the injuries but little else. WBC is mildly elevated. UA looks benign. CT of head is unremarkable. CT of chest and various xrays were negative. MRI demonstrating atrophy and degenerative micro-ischemia within normal limits for patient's age. Acute punctate micro-ischemia left centrum semiovale, right frontal lobe, and adjacent to right trigone. No acute hemorrhage/mass effect. Per neurology recommendations, cardiology has been consulted to evaluate the need of [facility] as well as psych to evaluate competency as he lives home alone. 05/03/23: Patient examined bedside. A&O x 3 this morning. States he is feeling better. Plan for MRI this afternoon with neuro consult following. 05/04/23: Patient up in chair this morning. Remains A& O x 3. Discussed MRI findings. Plan is for cardiac evaluation today as well as [facility] for competency eval. Noted increased BLE edema this morning. Encouraged patient to elevate legs. Will obtain doppler of BLE, he may benefit from compression dressings. Will discontinue his HCTZ/Amlodipine. Add Lasix and hydralazine. 05/05: Met with patient. Seems more alert this morning. A&O x 3. Endorses right knee pain 3/10 on numerical scale. SNF placement discussed with patient. He currently resides alone. He states he will consider it. Cardiology consulted with recomme ndations to increase eliquis to 5mg bid with a 14 day event monitor on discharge. WBC is elevated this morning without a clear etiology. Patient denies sob, cough, fevers, recent sick contacts. Will repeat his UA today. Resp viral panel is negative. Repeat CXR negative. 05/06: WBC trending up, UA was ordered yesterday, suspicious for infection. Initial urine on admission was negative. Patient was started on ceftriaxone. Patient denies any complaints this morning. No CP, nausea, vomiting, diarrhea, abdominal pain, dysuria, hematuria, flank pain, or burning. Patient A&O x 3 with intermittent confusion, weakness, would benefit from rehab stay. Patient agreeable to [facility] ramirez is working on this. 14 day hall monitor placed on patient today per cardiology recs. - Review of Systems Constitutional: Weakness Eyes: No Symptoms Ears, Nose, & Throat: No Symptoms Respiratory: No Symptoms Cardiac: Edema Abdominal/Gastrointestinal: No Symptoms Genitourinary Symptoms: No Symptoms Musculoskeletal: No Symptoms Skin: No Symptoms Neurological: Lethargy Psychological: Depression, Emotional Lability Endocrine: No Symptoms Hematologic/Lymphatic: No Symptoms Objective Exam General Appearance: no apparent distress Neurologic Exam: alert, oriented x 3, cooperative, confusion (intermittent) Skin Exam: normal color Wound Assessment: Skin/Wound Assessment Wound/Incision Assessment Start: 05/02/23 18:37 Text: Status: Active Freq: Q6H Protocol: Document 05/06/23 01:51 MH (Rec: 05/06/23 01:53 MH [id number]) Wound/Incision Assessment Right Posterior Head Wound Assessment Shift Assessment Wound Type Laceration Wound Stage Non Pressure Wound Drainage Amount None Drainage Odor None/Absent General Appearance Well Approximated Comment Scabbed over, open to air. no redness or drainage noted- remains true Wound Photo Photo Taken No Comment: pictures in chart Eye Exam: PERRL Ears, Nose, Throat Exam: normal ENT inspection Neck Exam: normal inspection Respiratory Exam: normal breath sounds, lungs clear Cardiovascular Exam: regular rate/rhythm, normal heart sounds, edema (BLE) Gastrointestinal/Abdomen Exam: soft, normal bowel sounds Extremity Exam: pedal edema, swelling Back Exam: normal inspection OBJECTIVE DATA Vital Signs: Vital Signs - 24 hr Temp Pulse Resp BP Pulse Ox 05/06/23 04:00 98.1 F 69 18 153/67 95 05/05/23 20:00 98.4 F 66 20 162/74 96 05/05/23 15:44 97.8 F 55 L 16 166/79 99 05/05/23 12:00 97.3 F 56 L 18 149/71 95 05/05/23 07:29 98.2 F 67 18 146/68 93 L Pain Assessment - Last Documented Pain Intensity 0 Pain Scale Used 0-10 Pain Scale Intake and Output: Intake & Output 12/12/23 12/13/23 12/14/23 12/15/23 11:59 11:59 11:59 11:59 Intake Total 960 1440 1460 980 Output Total 1370 1060 252 1215 Balance -410 990 -1065 -451 Weight 140 kg 140 kg Lab Results: Lab Results-Last 24 Hours 05/05/23 05/05/23 05/05/23 Range/Units 04:26 04:26 05:00 WBC (4.0-10.5) x10^3/uL RBC (4.1-5.6) x10^6/uL Hgb (12.5-18.0) g/dL Hct (42-50) % MCV (78-100) fL MCH (26-32) pg MCHC (32-36) g/dL RDW (11.5-14.0) % Plt Count (150-450) x10^3/uL MPV (7.5-11.0) fL Gran % (36.0-66.0) % Immature Gran % (Auto) (0.00-0.4) % Nucleat RBC Rel Count (0.00-0.1) % Eos # (Auto) (0-0.5) x10^3/uL Immature Gran # (Auto) (0.00-0.03) x10^3u/L Absolute Lymphs (auto) (1.0-4.6) x10^3/uL Absolute Monos (auto) (0.0-1.3) x10^3/uL Absolute Nucleated RBC (0.00-0.01) x10^3u/L Lymphocytes % (24.0-44.0) % Monocytes % (0.0-12.0) % Eosinophils % (0.00-5.0) % Basophils % (0.0-0.4) % Absolute Granulocytes (1.4-6.9) x10^3/uL Basophils # (0-0.4) x10^3/uL ESR 61 H (0-15) mm/hr Sodium 133 L (137-145) mmol/L Potassium 3.5 (3.5-5.1) mmol/L Chloride 103 (98-107) mmol/L Carbon Dioxide 23 (22-30) mmol/L Anion Gap 11.0 (5-15) MEQ/L BUN 16 (9-20) mg/dL Creatinine 0.93 (0.66-1.25) mg/dL Estimated GFR 82.5 ML/MIN Glucose 136 H (74-106) mg/dL Lactic Acid (0.4-2.0) Calcium 8.7 (8.4-10.2) mg/dL Magnesium 2.0 (1.6-2.3) mg/dL Total Bilirubin 1.00 (0.2-1.3) mg/dL AST 22 (17-59) U/L ALT 16 (0-50) U/L Alkaline Phosphatase 93 (38-126) U/L Serum Total Protein 6.9 (6.3-8.2) g/dL Albumin 3.5 (3.5-5.0) g/dL Procalcitonin (0.030-0.080) ng/mL Urine Color (Yellow) Urine Appearance (Clear) Urine pH (4.6-8.0) Ur Specific [place] (1.005-1.030) Urine Protein (Negative) Urine Glucose (UA) (Negative) mg/dL Urine Ketones (Negative) Urine Blood (Negative) Urine Nitrite (Negative) Urine Bilirubin (Negative) Urine Urobilinogen (0.2) mg/dL Ur Leukocyte Esterase (Negative) U Hyaline Cast (Auto) (0-2) /LPF Urine Microscopic RBC (0-5) /HPF Urine Microscopic WBC (0-5) /HPF Ur Epithelial Cells (None Seen) /HPF Urine Bacteria (None Seen) /HPF Urine Culture Reflexed (NO) Influenza Type A Ag (NEGATIVE) Influenza Type B Ag (NEGATIVE) RSV (PCR) (NEGATIVE) SARS-CoV-2 (PCR) (NEGATIVE) 05/05/23 05/05/23 05/05/23 Range/Units 05:00 08:18 12:40 WBC (4.0-10.5) x10^3/uL RBC (4.1-5.6) x10^6/uL Hgb (12.5-18.0) g/dL Hct (42-50) % MCV (78-100) fL MCH (26-32) pg MCHC (32-36) g/dL RDW (11.5-14.0) % Plt Count (150-450) x10^3/uL MPV (7.5-11.0) fL Gran % (36.0-66.0) % Immature Gran % (Auto) (0.00-0.4) % Nucleat RBC Rel Count (0.00-0.1) % Eos # (Auto) (0-0.5) x10^3/uL Immature Gran # (Auto) (0.00-0.03) x10^3u/L Absolute Lymphs (auto) (1.0-4.6) x10^3/uL Absolute Monos (auto) (0.0-1.3) x10^3/uL Absolute Nucleated RBC (0.00-0.01) x10^3u/L Lymphocytes % (24.0-44.0) % Monocytes % (0.0-12.0) % Eosinophils % (0.00-5.0) % Basophils % (0.0-0.4) % Absolute Granulocytes (1.4-6.9) x10^3/uL Basophils # (0-0.4) x10^3/uL ESR (0-15) mm/hr Sodium (137-145) mmol/L Potassium (3.5-5.1) mmol/L Chloride (98-107) mmol/L Carbon Dioxide (22-30) mmol/L Anion Gap (5-15) MEQ/L BUN (9-20) mg/dL Creatinine (0.66-1.25) mg/dL Estimated GFR ML/MIN Glucose (74-106) mg/dL Lactic Acid 1.9 (0.4-2.0) Calcium (8.4-10.2) mg/dL Magnesium (1.6-2.3) mg/dL Total Bilirubin (0.2-1.3) mg/dL AST (17-59) U/L ALT (0-50) U/L Alkaline Phosphatase (38-126) U/L Serum Total Protein (6.3-8.2) g/dL Albumin (3.5-5.0) g/dL Procalcitonin 0.060 (0.030-0.080) ng/mL Urine Color (Yellow) Urine Appearance (Clear) Urine pH (4.6-8.0) Ur Specific [place] (1.005-1.030) Urine Protein (Negative) Urine Glucose (UA) (Negative) mg/dL Urine Ketones (Negative) Urine Blood (Negative) Urine Nitrite (Negative) Urine Bilirubin (Negative) Urine Urobilinogen (0.2) mg/dL Ur Leukocyte Esterase (Negative) U Hyaline Cast (Auto) (0-2) /LPF Urine Microscopic RBC (0-5) /HPF Urine Microscopic WBC (0-5) /HPF Ur Epithelial Cells (None Seen) /HPF Urine Bacteria (None Seen) /HPF Urine Culture Reflexed (NO) Influenza Type A Ag NEGATIVE (NEGATIVE) Influenza Type B Ag NEGATIVE (NEGATIVE) RSV (PCR) NEGATIVE (NEGATIVE) SARS-CoV-2 (PCR) NEGATIVE (NEGATIVE) 05/05/23 05/06/23 Range/Units 15:00 04:20 WBC 16.5 H (4.0-10.5) x10^3/uL RBC 4.84 (4.1-5.6) x10^6/uL Hgb 14.6 (12.5-18.0) g/dL Hct 43.7 (42-50) % MCV 90.3 (78-100) fL MCH 30.2 (26-32) pg MCHC 33.4 (32-36) g/dL RDW 14.5 H (11.5-14.0) % Plt Count 311 (150-450) x10^3/uL MPV 10.0 (7.5-11.0) fL Gran % 78.4 H (36.0-66.0) % Immature Gran % (Auto) 0.7 H (0.00-0.4) % Nucleat RBC Rel Count 0.0 (0.00-0.1) % Eos # (Auto) 0.20 (0-0.5) x10^3/uL Immature Gran # (Auto) 0.11 H (0.00-0.03) x10^3u/L Absolute Lymphs (auto) 2.28 (1.0-4.6) x10^3/uL Absolute Monos (auto) 0.89 (0.0-1.3) x10^3/uL Absolute Nucleated RBC 0.00 (0.00-0.01) x10^3u/L Lymphocytes % 13.9 L (24.0-44.0) % Monocytes % 5.4 (0.0-12.0) % Eosinophils % 1.2 (0.00-5.0) % Basophils % 0.4 (0.0-0.4) % Absolute Granulocytes 12.90 H (1.4-6.9) x10^3/uL Basophils # 0.07 (0-0.4) x10^3/uL ESR (0-15) mm/hr Sodium (137-145) mmol/L Potassium (3.5-5.1) mmol/L Chloride (98-107) mmol/L Carbon Dioxide (22-30) mmol/L Anion Gap (5-15) MEQ/L BUN (9-20) mg/dL Creatinine (0.66-1.25) mg/dL Estimated GFR ML/MIN Glucose (74-106) mg/dL Lactic Acid (0.4-2.0) Calcium (8.4-10.2) mg/dL Magnesium (1.6-2.3) mg/dL Total Bilirubin (0.2-1.3) mg/dL AST (17-59) U/L ALT (0-50) U/L Alkaline Phosphatase (38-126) U/L Serum Total Protein (6.3-8.2) g/dL Albumin (3.5-5.0) g/dL Procalcitonin (0.030-0.080) ng/mL Urine Color Yellow (Yellow) Urine Appearance Cloudy A (Clear) Urine pH 5.5 (4.6-8.0) Ur Specific [place] 1.015 (1.005-1.030) Urine Protein 30 (Negative) Urine Glucose (UA) Negative (Negative) mg/dL Urine Ketones Negative (Negative) Urine Blood Moderate A (Negative) Urine Nitrite Positive A (Negative) Urine Bilirubin Negative (Negative) Urine Urobilinogen 1.0 A (0.2) mg/dL Ur Leukocyte Esterase Large A (Negative) U Hyaline Cast (Auto) 3-5 A (0-2) /LPF Urine Microscopic RBC 21-50 A (0-5) /HPF Urine Microscopic WBC >100 A (0-5) /HPF Ur Epithelial Cells None Seen (None Seen) /HPF Urine Bacteria Many A (None Seen) /HPF Urine Culture Reflexed YES (NO) Influenza Type A Ag (NEGATIVE) Influenza Type B Ag (NEGATIVE) RSV (PCR) (NEGATIVE) SARS-CoV-2 (PCR) (NEGATIVE) Radiology Exams: Radiology Procedures Category Date Time Status CHEST 1 VIEW (PORTABLE) Stat Exams 05/05/23 09:47 Completed VENOUS BILATERAL EXTREMITY [US] Stat Exams 05/04/23 14:50 Completed Multi-Disciplinary Progress Notes: Multi-Disciplinary Progress Notes 05/05/23 17:16 Occupational Therapy Note by Guillaume(L#[id number])Stella MR. CHRISTIANSON SEEN WHILE SITTING UP IN CHAIR THIS DATE. HIS NURSE WAS JUST COMPLETING HOOKING HIM UP TO IV ANTIBIOTIC. WHILE SEATED HE PERFORMED BUE STRENGTH AND ENDURANCE EXERCISES WITH MINIMAL REST BREAKS REQ. OT WILL CONT TO FOLLOW 5X/WK WHILE HE REMAINS IN ACUTE CARE. Initialized on 05/05/23 17:16 - END OF NOTE 05/05/23 15:19 Physical Therapy Note by Elsa(L#[id number])Stella PT. WAS SEEN BY P.T. THIS P.M. PT. IN BED UPON P.T. ARRIVAL TO ROOM AND REPORTS HE IS SLEEPY. PT. C/O MEDIAL L KNEE PN AND N/T L LE. RATES L KNEE PN 03/01. PT. SLEEPY BUT ORIENTED. PT. DID NOT WANT TO AMBULATE W/ P.T. D/T BEING SLEEPY. PERFORMED ANKLE PUMPS AND HEEL SLIDES BILATERAL LES. L KNEE PN W/ FLEXION. PROVIDED PT. W/ CP L MEDIAL KNEE FOR PN [place]T. [facility] [place]. MIGHT [place] MED. DISCUSSED REHAB STAY W/ PT. AND HE REPORTED HE IS NOT INTERESTED AT THIS TIME. DISCUSSED SAFETY CONCERNS AND SEVERITY OF FALL THIS TIME. HE PLANS TO D/C HOME W/ C AT THIS TIME. WILL CONT. P.T. PT. PARTICIPATION ALLOWS. Initialized on 05/05/23 15:19 - END OF NOTE 05/05/23 11:22 Case Management Note by Kerrie Luciano S/W PATIENT ABOUT POSSIBLE REHAB STAY. PATIENT NOT AGREEABLE AT THIS TIME. PATIENT STATED " I HAVE TOO MANY RESPONSIBILITIES FOR THAT". PATIENT WAS NOTIFIED AT OK HE WILL NOT BE ABLE TO DRIVE. PATIENT EDUCATED THAT REHAB STAY WOULD BE THE BEST OPTION FOR HIM TO ENSURE MEDICATION COMPLIANCE. ENCOURAGED [facility] [place] TO THINK ABOUT IT, PATIENT STATE HE WOULD CONSIDER IT. CALLED SON YAJAIRA TO T/W HIM- NO ANSWER- LM Initialized on 05/05/23 11:22 - END OF NOTE Assessment/Plan (1) Syncope and collapse Current Visit: Yes Status: Acute Assessment & Plan: -Blood glucose levels WNL upon presentation -Supplemental oxygen with goal >92%, baseline is RA -CMP, CBC, MG daily TSH, B12/Fol, cortisol, ammonia level -Head CT with no acute etiology, of note additional findings of remote lacunar infarct right basal ganglia -UDS/ ETOH negative, patient states no h/o smoking alcohol or drug use -LA wnl -UA negative -Will obtain MRI with neurology consult -Medication check for underlying etiology once med rec is obtained 05/03: -It appears patient has not been taking meds per [facility] nurse, she has found pill container with last weeks meds full -MRI pending 05/04: -MRI showing Atrophy and degenerative micro-ischemia within normal limits for patient's age. Acute punctate micro-ischemia left centrum semiovale, right frontal lobe, and adjacent to right trigone. No acute hemorrhage/mass effect. -Neurology recs for echo/cards consult /psych eval for competency -TSH, ammonia, bnp all wnl -B12 is low at 209, will start b12 1000mcg daily 05/05: -Unable to obtain competency eval -Patient A&O x 3 on exam Code(s): R41.82 - ALTERED MENTAL STATUS, UNSPECIFIED (2) Bradycardia Current Visit: Yes Status: Acute Assessment & Plan: -noted, will review medications once rec completed -Continuous tele 05/05: -resolved -continue tele Code(s): R00.1 - BRADYCARDIA, UNSPECIFIED (3) Leukocytosis Current Visit: Yes Status: Acute Assessment & Plan: -Unknown etiology, does not appear to be an infectious cause, may be secondary to recent fall/inflammation, will continue to monitor and trend 05/03: -WBC downtrending 05/05: -WBC uptrending, unknown etiology -BCult x 2 obtained -ESR elevated -Procal WNL -Lactic initially WNL, will repeat -CXR neg for infectious process -Will repeat UA 06/06: -Urine suspicious for infection, cult with gram negative organism, Ceftriaxone started, will follow culture Code(s): D72.829 - ELEVATED WHITE BLOOD CELL COUNT, UNSPECIFIED (4) Hypokalemia Current Visit: Yes Status: Acute Assessment & Plan: -potassium low at 3.4, will replenish -Tele 05/03: -resolved Code(s): E87.6 - HYPOKALEMIA (5) Atrial fibrillation Current Visit: Yes Status: Acute Assessment & Plan: -Patient states he has h/o arrhytmia and is on metoprolol/ eliquis, nurse to obtain med rec -HR controlled although AFIB on tele 05/04: -Home meds continued 05/05: -Cards increased eliquis to 5mg bid Code(s): I48.91 - UNSPECIFIED ATRIAL FIBRILLATION (6) Generalized weakness Current Visit: No Status: Resolved Assessment & Plan: -PT/OT 05/06: -Plan for rehab on d/c [facility] is pt preference Code(s): R53.1 - WEAKNESS (7) Fall Current Visit: Yes Status: Acute Assessment & Plan: -Imaging of knee/head/cervical spine with noted edema, otherwise unremarkable -Med check -Orthostatic vitals -supportive care with pain control/RICE -PT/OT eval 05/05: -Recommend SNF placement will consult CM Code(s): W19.XXXA - UNSPECIFIED FALL, INITIAL ENCOUNTER (8) Syncope and collapse Current Visit: Yes Status: Acute Assessment & Plan: -Continuous tele -CT head negative for acute etiology, MRI brain pending/ neuro consult pending -ECHO -Carotid duplex -Orthostatic vitals -Medication review -PT/OT 05/04: -MRI showing Atrophy and degenerative micro-ischemia within normal limits for patient's age. Acute punctate micro-ischemia left centrum semiovale, right frontal lobe, and adjacent to right trigone. No acute hemorrhage/mass effect. -Neurology recs for echo/cards consult /psych eval for competency -TSH, ammonia, bnp all wnl -B12 is low at 209, will start b12 1000mcg daily #Hypertension -HCTZ/amlodipine discontinued, will start hydralazine #BLE edema -Lasix 40 daily -Venous doppler #CHF -Cardiology consulted appreciate recs -Lasix 40 daily -ECHO showing IMPRESSION: 1) MILD DECREASE IN LEFT VENTRICULAR SYSTOLIC FUNCTION. 2) SEVERE ASYMMETRIC LEFT VENTRICULAR HYPERTROPHY INVOLVING THE SEPTUM. 3) DILATED RIGHT VENTRICLE. 4) MODERATE RIGHT VENTRICULAR DYSFUNCTIOM. 5) MILD LEFT ATRIAL DILATATION. 6) MILD TO MODERATE MITRAL REGURGITATION. 7) MILD TRICUSPID REGURGITATION. 8) NORMAL RIGHT VENTRICULAR SYSTOLIC PRESSURE #UTI -urine suspicious for UTI will start empirically on ceftriaxone, follow culture Code(s): R55 - SYNCOPE AND COLLAPSE Code(s): R41.82 - ALTERED MENTAL STATUS, UNSPECIFIED Code(s): R41.82 - ALTERED MENTAL STATUS, UNSPECIFIED Code(s): R55 - SYNCOPE AND COLLAPSE (2) Altered mental status Current Visit: Yes Status: Acute Code(s): R41.82 - ALTERED MENTAL STATUS, UNSPECIFIED (3) Bradycardia Current Visit: Yes Status: Acute Code(s): R00.1 - BRADYCARDIA, UNSPECIFIED (4) Leukocytosis Current Visit: Yes Status: Acute Code(s): D72.829 - ELEVATED WHITE BLOOD CELL COUNT, UNSPECIFIED (5) Hypokalemia Current Visit: Yes Status: Acute Code(s): E87.6 - HYPOKALEMIA (6) Atrial fibrillation Current Visit: Yes Status: Acute Code(s): I48.91 - UNSPECIFIED ATRIAL FIBRILLATION (7) Generalized weakness Current Visit: No Status: Resolved Code(s): R53.1 - WEAKNESS (8) Fall Current Visit: Yes Status: Acute Code(s): W19.XXXA - UNSPECIFIED FALL, INITIAL ENCOUNTER (9) Edema of both lower extremities Current Visit: Yes Status: Acute Code(s): R60.0 - LOCALIZED EDEMA (10) CHF (congestive heart failure), NYHA class III Current Visit: No Status: Chronic Qualifiers: Code(s): I50.9 - HEART FAILURE, UNSPECIFIED (11) HTN (hypertension) Current Visit: No Status: Chronic Code(s): I10 - ESSENTIAL (PRIMARY) HYPERTENSION (12) UTI (urinary tract infection) Current Visit: Yes Status: Acute Code(s): N39.0 - URINARY TRACT INFECTION, SITE NOT SPECIFIED
[2023-05-06] MEDS: ELIQUIS 2.5 MG TABLET PO SCH ×2 (09:32→21:16)
[2023-05-06] MEDS: Toprol Xl 50 MG PO SCH (09:32)
[2023-05-06] MEDS: Apresoline 25 MG TABLET PO SCH ×3 (09:32→21:16)
[2023-05-06] MEDS: Zestril 20 MG PO SCH ×2 (09:32→21:16)
[2023-05-06] MEDS: VITAMIN B-12 100 MCG PO SCH (09:33)
[2023-05-06] MEDS: Lasix 40 MG/4 ML IV SCH (09:39)
[2023-05-06] MEDS: ROCEPHIN 2 Gm-D5w 50ML BAG** 2 G/50 ML IVPB IV SCH (09:44)
[2023-05-07] MEDS: TYLENOL 325 MG PO PRN (01:29)
--- NOTE | 2023-05-07 05:19 | PCM.DS ---
Discharge Summary Date of Admission: 05/03/23 15:28 Date of Discharge: 05/07/23 Admitting Physician: MARTIN ONOFRE MD Consults: Consults on Case 05/02/23 18:17 Consult Neurology ROUTINE 05/03/23 16:53 Consult Cardiology ROUTINE 05/03/23 16:55 Consult,Huan [Psychiatric Consult] STAT Primary Care Provider: PAO CHINCHILLAYESH Allergies Allergies NKA Allergy (Verified 08/06/20 02:42) Hospital Summary - Hospital Course Hospital Course: HPI:Patient admitted with recurrent falls and altered mental status. According to [facility] nurse and patient's son he is normally alert and oriented but noncompliant with medications. Notably he was recently hospitalized at [facility] for UTI. He was sent home with oral antibiotics but it is very possible he did not take them. The patient has poor memory and is a poor historian. He sustained a scalp laceration and bruising of his face as well as a left knee injury. He complains of back pain. He denies other symptoms but history cannot be relied on. Exam shows the injuries but little else. Intial labs showed WBC is mildly elevated. UA looks benign. CT of head is unremarkable. CT of chest and various xrays were negative. MRI demonstrating atrophy and degenerative micro- ischemia within normal limits for patient's age. Acute punctate micro-ischemia left centrum semiovale, right frontal lobe, and adjacent to right trigone. Echo was unremarkable. No acute hemorrhage/mass effect. Neurology consults with recomendation for cardiology to be consulted to evaluate the need of SALVATORE as well as psych to evaluate competency as he lives home alone. Unable to obtain comptency eval with [facility]. Patient has remained A&O x 3 on exam. Cardiology has been consulted and recommends increasing his dose of Eliquis to 5mg bid and placing patient on event monitor. Patient needing rehab. He will discharge to [facility] on the event monitor for 14 days and follow up as OP with cardiology. His initial UA was benign, WBC were increased, repeat UA indicating infection, culture growing Klebsiella. Will send him on IV Ceftriaxone for four more days to be completed at [facility]. Patient with no symptoms and afebrile. Advised follow up with PCP for UA recheck. Patient to follow up with neurology as well. Discharge Note New Diagnosis: UTI/AMS New Medications: Eliquis increased to 5mg BID, Ceftriaxone for UTI x 4 more days starting 05/08/23 Follow Up: pcp/cards/ neurology Results pending: urine culture Latest Assessment & Plan (1) Syncope and collapse Current Visit: Yes Status: Acute Assessment & Plan: -Blood glucose levels WNL upon presentation -Supplemental oxygen with goal >92%, baseline is RA -CMP, CBC, MG daily TSH, B12/Fol, cortisol, ammonia level -Head CT with no acute etiology, of note additional findings of remote lacunar infarct right basal ganglia -UDS/ ETOH negative, patient states no h/o smoking alcohol or drug use -LA wnl -UA negative -Will obtain MRI with neurology consult -Medication check for underlying etiology once med rec is obtained 05/03: -It appears patient has not been taking meds per [facility] nurse, she has found pill container with last weeks meds full -MRI pending 05/04: -MRI showing Atrophy and degenerative micro-ischemia within normal limits for patient's age. Acute punctate micro-ischemia left centrum semiovale, right frontal lobe, and adjacent to right trigone. No acute hemorrhage/mass effect. -Neurology recs for echo/cards consult /psych eval for competency -TSH, ammonia, bnp all wnl -B12 is low at 209, will start b12 1000mcg daily 05/05: -Unable to obtain competency eval -Patient A&O x 3 on exam Code(s): R41.82 - ALTERED MENTAL STATUS, UNSPECIFIED (2) Bradycardia Current Visit: Yes Status: Acute Assessment & Plan: -noted, will review medications once rec completed -Continuous tele 05/05: -resolved -continue tele Code(s): R00.1 - BRADYCARDIA, UNSPECIFIED (3) Leukocytosis Current Visit: Yes Status: Acute Assessment & Plan: -Unknown etiology, does not appear to be an infectious cause, may be secondary to recent fall/inflammation, will continue to monitor and trend 05/03: -WBC downtrending 05/05: -WBC uptrending, unknown etiology -BCult x 2 obtained -ESR elevated -Procal WNL -Lactic initially WNL, will repeat -CXR neg for infectious process -Will repeat UA 06/06: -Urine suspicious for infection, cult with gram negative organism, Ceftriaxone s tarted, will follow culture Code(s): D72.829 - ELEVATED WHITE BLOOD CELL COUNT, UNSPECIFIED (4) Hypokalemia Current Visit: Yes Status: Acute Assessment & Plan: -potassium low at 3.4, will replenish -Tele 05/03: -resolved Code(s): E87.6 - HYPOKALEMIA (5) Atrial fibrillation Current Visit: Yes Status: Acute Assessment & Plan: -Patient states he has h/o arrhytmia and is on metoprolol/ eliquis, nurse to obtain med rec -HR controlled although AFIB on tele 05/04: -Home meds continued 05/05: -Cards increased eliquis to 5mg bid Code(s): I48.91 - UNSPECIFIED ATRIAL FIBRILLATION (6) Generalized weakness Current Visit: No Status: Resolved Assessment & Plan: -PT/OT 05/06: -Plan for rehab on d/c [place] is pt preference Code(s): R53.1 - WEAKNESS (7) Fall Current Visit: Yes Status: Acute Assessment & Plan: -Imaging of knee/head/cervical spine with noted edema, otherwise unremarkable -Med check -Orthostatic vitals -supportive care with pain control/RICE -PT/OT eval 05/05: -Recommend SNF placement will consult CM Code(s): W19.XXXA - UNSPECIFIED FALL, INITIAL ENCOUNTER (8) Syncope and collapse Current Visit: Yes Status: Acute Assessment & Plan: -Continuous tele -CT head negative for acute etiology, MRI brain pending/ neuro consult pending -ECHO -Carotid duplex -Orthostatic vitals -Medication review -PT/OT 05/04: -MRI showing Atrophy and degenerative micro-ischemia within normal limits for patient's age. Acute punctate micro-ischemia left centrum semiovale, right frontal lobe, and adjacent to right trigone. No acute hemorrhage/mass effect. -Neurology recs for echo/cards consult /psych eval for competency -TSH, ammonia, bnp all wnl -B12 is low at 209, will start b12 1000mcg daily #Hypertension -HCTZ/amlodipine discontinued, will start hydralazine #BLE edema -Lasix 40 daily -Venous doppler #CHF -Cardiology consulted appreciate recs -Lasix 40 daily -ECHO showing IMPRESSION: 1) MILD DECREASE IN LEFT VENTRICULAR SYSTOLIC FUNCTION. 2) SEVERE ASYMMETRIC LEFT VENTRICULAR HYPERTROPHY INVOLVING THE SEPTUM. 3) DILATED RIGHT VENTRICLE. 4) MODERATE RIGHT VENTRICULAR DYSFUNCTIOM. 5) MILD LEFT ATRIAL DILATATION. 6) MILD TO MODERATE MITRAL REGURGITATION. 7) MILD TRICUSPID REGURGITATION. 8) NORMAL RIGHT VENTRICULAR SYSTOLIC PRESSURE #UTI -urine suspicious for UTI will start empirically on ceftriaxone, follow culture I spent 35 minutes [id number] with the patient on the day of discharge performing discharge exam, discussing hospital stay and discharge instructions with patient and caregivers, preparation of discharge records, prescriptions & referral forms and addressing any questions/concerns the patient had as documented above. - Vitals & Intake/Output Vital Signs: Vital Signs Temperature 98.3 F 05/06/23 23:37 Pulse Rate 57 L 05/06/23 23:37 Respiratory Rate 20 05/06/23 23:37 Blood Pressure 178/81 05/06/23 23:37 O2 Sat by Pulse Oximetry 95 05/06/23 23:37 Intake & Output: Intake & Output 05/04/23 05/05/23 05/06/23 05/07/23 11:59 11:59 11:59 11:59 Intake Total 1440 1460 1220 680 Output Total 1060 2525 2590 600 Balance 380 -1065 -1370 80 Weight 140 kg - Lab Result Diagrams: 05/07/23 05:24 05/07/23 07:47 Lab Results-Last 24 Hrs: Lab Results-Last 24 Hours 05/05/23 05/06/23 05/06/23 Range/Units 05:00 04:20 04:20 Sodium 134 L (137-145) mmol/L Potassium 3.7 (3.5-5.1) mmol/L Chloride 102 (98-107) mmol/L Carbon Dioxide 24 (22-30) mmol/L Anion Gap 12.0 (5-15) MEQ/L BUN 15 (9-20) mg/dL Creatinine 0.82 (0.66-1.25) mg/dL Estimated GFR 88.3 ML/MIN Glucose 126 H (74-106) mg/dL Calcium 8.2 L (8.4-10.2) mg/dL Magnesium 1.9 (1.6-2.3) mg/dL Total Bilirubin 1.20 (0.2-1.3) mg/dL AST 22 (17-59) U/L ALT 15 (0-50) U/L Alkaline Phosphatase 86 (38-126) U/L C-Reactive Prot, Quant 72 H (0-10) mg/L Serum Total Protein 6.5 (6.3-8.2) g/dL Albumin 3.1 L (3.5-5.0) g/dL Micro Results-Entire Visit: Microbiology 05/05/23 15:00 Urine Culture - Preliminary Clean Catch Midstream GRAM NEGATIVE ID AND SENSITIVITY PENDING 05/02/23 11:56 Urine Culture - Final Catherized NO GROWTH - Radiology Exams Ordered Rad Exams-Entire Visit: Radiology Procedures Category Date Time Status CHEST 1 VIEW (PORTABLE) Stat Exams 05/05/23 09:47 Completed - Procedures and Test Procedures and Tests throughout Hospitalization: Therapy Orders & Screens 05/02/23 18:19 PT Eval & Treat (MD Order) ONCE Reason for Eval:: falls Diagnosis: Altered mental status OT Eval and Treat (MD Order) ONCE Comment: Physician Instructions: Reason For Exam: Diagnosis: Altered mental status 05/06/23 08:03 Bardy 7-14 Day Holter ONCE Comment: Diagnosis: MULTIPLE THROMBOEMBOLIC ACUTE INFARCT Discharge Exam General Appearance: no apparent distress Neurologic Exam: alert, oriented x 3, cooperative Eye Exam: PERRL Ears, Nose, Throat Exam: normal ENT inspection Neck Exam: normal inspection Respiratory Exam: normal breath sounds, lungs clear Cardiovascular Exam: regular rate/rhythm, normal heart sounds, edema (BLE) Gastrointestinal/Abdomen Exam: soft, normal bowel sounds Male Genitalia Exam: deferred Rectal Exam: deferred Back Exam: normal inspection Extremity Exam: normal inspection Wound Assessment: Skin/Wound Assessment Wound/Incision Assessment Start: 05/02/23 18:37 Text: Status: Active Freq: Q6H Protocol: Document 05/07/23 02:00 AB (Rec: 05/07/23 02:24 AB [id number]) Wound/Incision Assessment Right Posterior Head Wound Assessment Shift Assessment Wound Type Laceration Wound Stage Non Pressure Wound Drainage Amount None Drainage Odor None/Absent General Appearance Well Approximated Comment Scabbed over, open to air. No redness or drainage noted- remains true. Wound Photo Photo Taken No Comment: pictures in chart Final Diagnosis/Problem List - Final Discharge Diagnosis/Problem (1) UTI (urinary tract infection) Current Visit: Yes Status: Acute Code(s): N39.0 - URINARY TRACT INFECTION, SITE NOT SPECIFIED (2) Syncope and collapse Current Visit: Yes Status: Acute Code(s): R55 - SYNCOPE AND COLLAPSE (3) Altered mental status Current Visit: Yes Status: Acute Code(s): R41.82 - ALTERED MENTAL STATUS, UNSPECIFIED (4) Bradycardia Current Visit: Yes Status: Acute Code(s): R00.1 - BRADYCARDIA, UNSPECIFIED (5) Leukocytosis Current Visit: Yes Status: Acute Code(s): D72.829 - ELEVATED WHITE BLOOD CELL COUNT, UNSPECIFIED (6) Hypokalemia Current Visit: Yes Status: Acute Code(s): E87.6 - HYPOKALEMIA (7) Atrial fibrillation Current Visit: Yes Status: Acute Code(s): I48.91 - UNSPECIFIED ATRIAL FIBRILLATION (8) Generalized weakness Current Visit: No Status: Resolved Code(s): R53.1 - WEAKNESS (9) Fall Current Visit: Yes Status: Acute Code(s): W19.XXXA - UNSPECIFIED FALL, INITIAL ENCOUNTER (10) Edema of both lower extremities Current Visit: Yes Status: Acute Code(s): R60.0 - LOCALIZED EDEMA (11) CHF (congestive heart failure), NYHA class III Current Visit: No Status: Chronic Priority: High Code(s): I50.9 - HEART FAILURE, UNSPECIFIED (12) HTN (hypertension) Current Visit: No Status: Chronic Code(s): I10 - ESSENTIAL (PRIMARY) H YPERTENSION - Discharge Disposition: DC TO ANY "OTHER" [facility] Condition: Fair Prescriptions: New Ceftriaxone 2 GM/50 ML PREMIX* [ROCEPHIN 2 Gm-D5w 50ML BAG] 2 g IV Q24H10 iv piggy HydrALAzine HCL 25 MG TAB [Apresoline 25 MG TABLET] 50 mg PO TID tablet Docusate Sodium 100 mg [Docusate Sodium 100 MG] 100 mg PO BIDPRN PRN cap PRN Reason: Constipation Apixaban [Eliquis 2.5 mg Tablet] 5 mg PO BID tablet Furosemide 40 mg/4 ml [Lasix 40 MG/4 ML] 40 mg IV DAILY Cyanocobalamin 100 Mcg [Vitamin B-12 100 Mcg] 100 mcg PO DAILY tablet Ondansetron HCl 4 mg/2 ml [Zofran 4 MG/2 ML VIAL] 4 mg IV Q6H PRN PRN PRN Reason: Nausea/Vomiting Continue Metoprolol Succinate 50 mg [Toprol Xl 50 MG] 50 mg PO QAM Lisinopril 20 mg [Zestril 20 MG] 20 mg PO BID Changed Potassium Chloride Tab* [Klor Con] 20 meq PO QAM #0 Discontinued Apixaban [Eliquis 2.5 mg Tablet] 2.5 mg PO BID Furosemide 40 mg [Lasix 40 MG] 40 mg PO DAILY PRN PRN PRN Reason: SWELLING hydroCHLOROthiazide [Hydrochlorothiazide] 25 mg PO QAM Amlodipine Besylate [Norvasc] 10 mg PO QAM Acetaminophen 500 mg [Tylenol Extra Strength 500 mg] 1,000 mg PO Q4H PRN PRN PRN Reason: Pain And/Or Fever Additional Instructions: [facility] ORDERS: ADMIT TO RESIDENTIAL CARE REGULAR DIET PT/OT EVAL AND TREAT SEE ATTACHED MED LIST Return heart monitor to [facility] frontload driver on 05/20/23 Follow up with: MAXIME CHINCHILLA MD [Primary Care Provider] -
[2023-05-07 05:28] VITALS: TEMP 97.8
[2023-05-07 05:50] LABS: Absolute Neutrophil Ct (ANC) 9.15 x10^3/uL (1.4-6.9); BASOPHIL % 0.4 % (0.0-0.4); Basophil (Absolute #) 0.05 x10^3/uL (0-0.4); Eosinophil % 2.1 % (0.00-5.0); Eosinophil (Absolute #) 0.26 x10^3/uL (0-0.5); Hematocrit 43.9 % (42-50); Hemoglobin 14.7 g/dL (12.5-18.0); IMMATURE GRAN # 0.07 x10^3u/L (0.00-0.03); IMMATURE GRAN % 0.6 % (0.00-0.4); Lymphocyte (Absolute #) 2.01 x10^3/uL (1.0-4.6); Lymphocytes % 16.3 % (24.0-44.0); Mean Cell Volume 90.5 fL (78-100); Mean Corpuscular Hemoglobin 30.3 pg (26-32); Mean Corpuscular Hgb Concent. 33.5 g/dL (32-36); Mean Platelet Volume 9.6 fL (7.5-11.0); Monocyte (Absolute #) 0.78 x10^3/uL (0.0-1.3); Monocytes % 6.3 % (0.0-12.0); Neutrophil % 74.3 % (36.0-66.0); Platelet Count 300 x10^3/uL (150-450); Red Blood Count 4.85 x10^6/uL (4.1-5.6); Red Cell Distribution Width 14.5 % (11.5-14.0); White Blood Count 12.3 x10^3/uL (4.0-10.5)
[2023-05-07 06:20] LABS: ALBUMIN 3.4 g/dL (3.5-5.0); ANION GAP 13.2 MEQ/L (5-15); Calcium 8.2 mg/dL (8.4-10.2); Creatinine 1 0.88 mg/dL (0.66-1.25); EST GLOMERULAR FILTRATION RATE 86.4 ML/MIN; Potassium 3.1 mmol/L (3.5-5.1); Total Protein 7.2 g/dL (6.3-8.2)
[2023-05-07] MEDS: Klor Con PO SCH ×3 (06:37→10:43)
[2023-05-07] MEDS: Apresoline 25 MG TABLET PO SCH (07:40)
[2023-05-07] MEDS: Toprol Xl 50 MG PO SCH (10:18)
[2023-05-07] MEDS: ELIQUIS 2.5 MG TABLET PO SCH (10:19)
[2023-05-07] MEDS: Zestril 20 MG PO SCH (10:19)
[2023-05-07] MEDS: VITAMIN B-12 100 MCG PO SCH (10:20)
[2023-05-07] MEDS: Lasix 40 MG/4 ML IV SCH (10:30)
[2023-05-07] MEDS: ROCEPHIN 2 Gm-D5w 50ML BAG** 2 G/50 ML IVPB IV SCH (10:32)
[2023-05-07 11:41] VITALS: BP 123/73; PULSE 70; RESP 16; O2SAT 96
== END 2023-05-07 12:23 | DRG 690 ==
LOC: ED 11:03 → MED SURG 16:39 → OBSVTOIN 05-03 15:28
PROVIDERS: ADMIT Internal Medicine; ATTEND Internal Medicine
DX: N39.0 Urinary tract infection, site not specified (principal); R55 Syncope and collapse; R41.82 Altered mental status, unspecified; R00.1 Bradycardia, unspecified; D72.829 Elevated white blood cell count, unspecified; E87.6 Hypokalemia; I48.91 Unspecified atrial fibrillation; R53.1 Weakness; I11.0 Hypertensive heart disease with heart failure; I50.9 Heart failure, unspecified; W19.XXXA Unspecified fall, initial encounter; R60.0 Localized edema; S01.01XA Laceration without foreign body of scalp, initial encounter; Z79.01 Long term (current) use of anticoagulants; Z79.899 Other long term (current) drug therapy; Z20.828 Contact with and (suspected) exposure to other viral communicable diseases; Z91.148 Patient's other noncompliance with medication regimen for other reason
CPT/HCPCS: 0241U; 36000; 36415; 51702; 70450; 70486; 70552; 71045; 71260; 72125; 73562; 74177; 80053; 80307; 81001; 82077; 82140; 82533; 82550; 82607; 82746; 82947; 83605; 83690; 83735; 83880; 84132; 84134; 84145; 84443; 84484; 85025; 85610; 85652; 85730; 86140; 87040; 87077; 87086; 87186; 93005; 93246; 93268; 93306; 93970; 97110; 97161; 97165; 97530; 99285; G0378; Q3014; J0696; J1940; A9270-GY